=== PATIENT | female | born 1960 | race Caucasian/White ===

== ENCOUNTER 2022-10-22 09:22 | Outpatient (OUT) | payer MEDICAID, SELFPAY ==
--- NOTE | 2022-10-22 09:32 | US_ITS ---
The [address] [address] Patient Name: ECTOR HUTCHISON MRN: [id number] date: 1960 Sex: F Assigned Patient Location: US Current Patient Location: US Accession/Order Number: [id number] Exam Date: 10/22/2022 09:35 Report Date: 10/22/2022 11:42 At the request of: ELISABETH MCDONALD Procedure: US thyroid EXAMINATION: US thyroid HISTORY: Thyroid Nodule E04.1 COMPARISON: No relevant comparison available. FINDINGS: RIGHT LOBE: Prior right lobectomy. No suspicious findings within the thyroid bed. LEFT LOBE: Homogeneous echotexture and contains a 3 mm TR 4 nodule in a 1 mm TR 4 nodule within the superior pole. Lobe size: 3.2 x 1.1 x 1.4 cm ISTHMUS: Normal size and echotexture. Thickness: 1 mm US/US thyroid IMPRESSION: 1. Small, nonspecific TR 4 nodules within left lobe. Follow-up imaging in 2 years is recommended. 2. Prior right lobectomy. No suspicious findings within thyroid bed. TR4 (moderately suspicious): If > 1.0 cm Follow-up ultrasound in 1, 2, 3, and 5 years. If > 1.5 cm fine needle aspiration (FNA). Electronically authenticated by: JABARI BALL Date: 10/22/2022 11:42
== END 2022-10-22 09:23 | disposition home or self-care (01) ==
PROVIDERS: PCP Nurse Practitioner; Visit Provider Otolaryngology
DX: E03.9 Hypothyroidism, unspecified (principal); E78.5 Hyperlipidemia, unspecified; D64.9 Anemia, unspecified; E04.1 Nontoxic single thyroid nodule
CPT/HCPCS: 36415; 76536; 80053; 80061; 82728; 84439; 84443; 85025

== ENCOUNTER 2022-10-22 09:27 | Outpatient (OUT) | payer MEDICAID, SELFPAY ==
[2022-10-22 10:06] LABS: Basophils Absolute Auto 0.1 10^3/uL (0.0-0.1); Basophils Percent Auto 2.2 % (0.2-2.0); Eosinophils Absolute Auto 0.2 10^3/uL (0.0-0.7); Eosinophils Percent Auto 5.2 % (0.9-7.0); Hematocrit 35.2 % (36.0-48.0); Immature Granulocytes Abs Auto 0.02 10^3/uL (0.00-0.03); Immature Granulocytes Pct Auto 0.6 % (0.0-0.5); Lymphocytes Absolute Auto 0.9 10^3/uL (1.2-3.8); Lymphocytes Percent Auto 26.5 % (20.5-60.0); Mean Corpuscular HGB Conc 31.3 g/dL (29.9-35.2); Mean Corpuscular Hemoglobin 26.4 pg (26.7-34.0); Mean Corpuscular Volume 84.4 fL (81.0-99.0); Monocytes Absolute Auto 0.2 10^3/uL (0.3-0.8); Monocytes Percent Auto 7.4 % (1.7-12.0); Neutrophils Absolute Auto 1.9 10^3/uL (1.4-6.5); Neutrophils Percent Auto 58.1 % (43.0-75.0); Platelet Count 289 10^3/uL (150-450); Red Blood Count 4.17 10^6/uL (4.20-5.40); Red Cell Distribution Width 13.1 % (11.0-15.0); White Blood Count 3.3 10^3/uL (4.0-11.0)
[2022-10-22 12:01] LABS: Alanine Aminotransferase 28 U/L (14-59); Albumin Globulin Ratio 1.1; Albumin Level 3.9 g/dL (3.4-5.0); Alkaline Phosphatase 60 U/L (46-116); Anion Gap 10.3; Aspartate Amino Transferase 20 U/L (15-37); BUN Creatinine Ratio 24.1; Bilirubin Total 0.2 mg/dL (0.2-1.0); Calcium 8.9 mg/dL (8.5-10.1); Carbon Dioxide 32.2 mmol/L (21.0-32.0); Chloride 101 mmol/L (98-107); Chol HDL Ratio 2.3; Cholesterol 207 mg/dL (<=200); Estimated GFR (African America >60 (>=60); Estimated GFR (Non-African Ame >60 (>=60); Globulin 3.4 g/dL; Glucose 105 mg/dL (74-106); HDL Cholesterol 91 mg/dL (40-60); Potassium 4.5 mmol/L (3.5-5.1); Sodium 139 mmol/L (136-145); Thyroid Stimulating Hormone 3.672 uIU/mL (0.358-3.740); Total Protein 7.3 g/dL (6.4-8.2); Triglycerides 53 mg/dL (<=150); VLDL CHOLESTEROL 10.6 mg/dL
[2022-10-22 12:43] LABS: Free T4 0.69 ng/dL (0.76-1.46)
== END 2022-10-22 09:28 | disposition home or self-care (01) ==
PROVIDERS: PCP Nurse Practitioner; Visit Provider Nurse Practitioner
DX: E03.9 Hypothyroidism, unspecified (principal); E78.5 Hyperlipidemia, unspecified; D64.9 Anemia, unspecified
CPT/HCPCS: 36415; 80053; 80061; 82728; 84439; 84443; 85025

== ENCOUNTER 2022-12-10 13:01 | Outpatient (OUT) | payer MEDICAID, SELFPAY ==
[2022-12-10 13:24] LABS: Basophils Absolute Auto 0.1 10^3/uL (0.0-0.1); Basophils Percent Auto 1.6 % (0.2-2.0); Eosinophils Absolute Auto 0.1 10^3/uL (0.0-0.7); Eosinophils Percent Auto 3.6 % (0.9-7.0); Hematocrit 34.4 % (36.0-48.0); Hemoglobin 10.8 g/dL (12.0-16.0); Lymphocytes Absolute Auto 0.9 10^3/uL (1.2-3.8); Lymphocytes Percent Auto 28.5 % (20.5-60.0); Mean Corpuscular HGB Conc 31.4 g/dL (29.9-35.2); Mean Corpuscular Hemoglobin 27.3 pg (26.7-34.0); Mean Corpuscular Volume 87.1 fL (81.0-99.0); Mean Platelet Volume 8.9 fL (9.5-13.5); Monocytes Absolute Auto 0.3 10^3/uL (0.3-0.8); Monocytes Percent Auto 10.2 % (1.7-12.0); Neutrophils Absolute Auto 1.7 10^3/uL (1.4-6.5); Neutrophils Percent Auto 56.1 % (43.0-75.0); Platelet Count 280 10^3/uL (150-450); Red Blood Count 3.95 10^6/uL (4.20-5.40); Red Cell Distribution Width 15.2 % (11.0-15.0); White Blood Count 3.1 10^3/uL (4.0-11.0)
== END 2022-12-10 13:02 | disposition home or self-care (01) ==
LOC: LAB 13:04
PROVIDERS: PCP Nurse Practitioner; Visit Provider Nurse Practitioner
DX: B35.1 Tinea unguium (principal)
CPT/HCPCS: 36415; 85025

== ENCOUNTER 2023-04-01 21:43 | Outpatient (REF) | payer MEDICAID, SELFPAY ==
[2023-04-07 12:11] LABS: Age Gdln ACOG Testing Note (.); HPV Aptima Negative (Negative); IGP, Aptima HPV, rfx 16/18,45 Note (.)
== END 2023-04-01 21:44 | disposition home or self-care (01) ==
LOC: LAB 21:43
PROVIDERS: PCP Nurse Practitioner; Visit Provider Nurse Practitioner
DX: Z01.419 Encounter for gynecological examination (general) (routine) without abnormal findings (principal)
CPT/HCPCS: 87624; G0145

== ENCOUNTER 2023-04-15 10:06 | Outpatient (OUT) | payer OTHER, SELFPAY ==
--- OUTSIDE RECORDS SUMMARY | 2023-04-15 10:12 | XMS_ITS | CCD ---
Author Name Unknown Address [address] [place] [address] Organization [facility] Care Team Providers Care Organic Search Lead Name Role Phone [facility] Mary PEREZ Primary Care Provider Haylie Mueller Unavailable Adithya Boykin Unavailable Keara Silva Unavailable Mary Barr Unavailable AICHHOLZ, LANDING GEAR MECHANIC MARY Admitting Unavailable AICHHOLZ, LANDING GEAR MECHANIC MARY Attending Unavailable AICHHOLZ, LANDING GEAR MECHANIC MARY Consulting Unavailable AICHHOLZ, LANDING GEAR MECHANIC MARY Primary Care Unavailable AICHHOLZ, LANDING GEAR MECHANIC MARY Admitting Unavailable AICHHOLZ, LANDING GEAR MECHANIC MARY Primary Care Unavailable AICHHOLZ, LANDING GEAR MECHANIC MARY Attending Unavailable AICHHOLZ, LANDING GEAR MECHANIC MARY Consulting Unavailable DR ELISABETH MCDONALD Admitting Unavailable AICHHOLZ, LANDING GEAR MECHANIC MARY Primary Care Unavailable DR ELISABETH MCDONALD Attending Unavailable DR ELISABETH MCDONALD Consulting Unavailable DR ENDY PRADHAN Consulting Unavailable AICHHOLZ, LANDING GEAR MECHANIC MARY Primary Care Unavailable AICHHOLZ, LANDING GEAR MECHANIC MARY Admitting Unavailable AICHHOLZ, LANDING GEAR MECHANIC MARY Attending Unavailable AICHHOLZ, LANDING GEAR MECHANIC MARY Consulting Unavailable AICHHOLZ, LANDING GEAR MECHANIC MARY Admitting Unavailable AICHHOLZ, LANDING GEAR MECHANIC MARY Attending Unavailable AICHHOLZ, LANDING GEAR MECHANIC MARY Consulting Unavailable AICHHOLZ, LANDING GEAR MECHANIC MARY Primary Care Unavailable CROW HERNANDEZ Admitting Unavailable AICHHOLZ, LANDING GEAR MECHANIC MARY Primary Care Unavailable CROW HERNANDEZ Attending Unavailable CROW HERNANDEZ Consulting Unavailable CROW HERNANDEZ Admitting Unavailable CROW HERNANDEZ Attending Unavailable CROW HERNANDEZ Consulting Unavailable ANA CHUN MARY Primary Care Unavailable LAMONT FERRO Consulting Unavailable DR ENDY PRADHAN Consulting Unavailable HAYLIE MUELLER Admitting Unavailable HAYLIE MUELLER Attending Unavailable ANA CHUN Primary Care Unavailable HAYLIE MUELLER Consulting Unavailable Mary Chun CNP Primary Care Provider BRANDON ARSHAD Attending Unavailable MARY CHUN Referring Unavailable MARY CHUN Primary Care Unavailable MARY CHUN Attending Unavailable MARY CHUN Attending Unavailable Xu Gentile MD Primary Care Provider [phone] Allergies Allergy Classification Reported Allergen(s) Allergy Type Date of Onset Reaction(s) Facility (7 sources) atorvastatin Drug Allergy 07-25-19 15 Rash [facility] (3 sources) Bee Sting Drug allergy Unknown [facility] Other (1 source) bee venom Drug allergy (disorder) 02-03-20 16 [facility] (1 source) Dextroamphetamine Drug Allergy 07-25-19 15 [facility] (1 source) atorvastatin Drug Allergy 11-14-19 23 Unknown [facility] (1 source) Honey bee venom Allergy to substance 11-14-19 23 Unknown [facility] (1 source) terbinafine Drug Allergy 11-14-19 23 Rash [facility] (1 source) Tolnaftate Drug Allergy 11-14-19 23 Rash [facility] Medications Current Medications Medication Drug Class(es) Dates Sig (Normalized) Sig (Original) [id number] 200 actuat albuterol 0.09 mg/actuat metered dose inhaler (2 sources) beta2-Adrenergic Agonist Start: 06-01-2022 take 2 puff(s) by inhalation four times daily as needed Albuterol Sulfate HFA 108 (90 Base) MCG/ACT 2 puffs Inhalation 4 times a day prn May, Active alendronic acid 70 mg oral tablet (7 sources) Bisphosphonate alendronate (Fosamax) 70 MG tablet Take 70 mg by mouth every 7 (seven) days. 0 Active take 1 tablet by jie th every week in the morning alendronate (FOSAMAX) 70 mg tablet Take 70 mg by mouth one time a week. In AM with cup of water on empty stomach. Nothing else by mouth and stay upright for 30 min. 0 Active Fosamax 70 MG 1 tablet 30 minutes before the first food, beverage or medicine of the day with plain water Orally once a week Active Comment on above: Take 70 mg by mouth one time a week. In AM with cup of water on empty stomach. Nothing else by mouth and stay upright for 30 min. aspirin 81 mg delayed release oral tablet (9 sources) Platelet Aggregation Inhibitor, Nonsteroidal Anti-inflammatory Drug take 1 tablet by mouth once daily aspirin 81 MG EC tablet Take 81 mg by mouth 1 (one) time each day at the same time. 0 Active Aspir-Low 81 MG Oral for 30 Active Comment on above: Take 81 mg by mouth once daily. Calcium Carbonate (1 source) take 1 tablet by mouth in the morning Calcium Carbonate (CALCIUM 500 PO) Take 1 tablet by mouth in the morning. 0 Active cetirizine hydrochloride 10 mg oral tablet (1 source) Histamine-1 Receptor Antagonist Start: 023 take 1 tablet by mouth every twenty-four hours Cetirizine HCl 10 MG 1 tablet Orally Once a day for 14 days Jun, Active cycloSPORINE 0.5 mg/ml ophthalmic suspension (3 sources) Calcineurin Inhibitor Immunosuppressant take 1 drop(s) into the eye(s) every twelve hours cycloSPORINE (Restasis) 0.05 % ophthalmic emulsion Administer 1 drop into both eyes every 12 (twelve) hours. 0 Active take 1 drop(s) into the eye(s) twice daily cycloSPORINE (RESTASIS) 0.05 % ophthalmi c emulsion 1 Drop twice daily. 0 Active Comment on above: 1 Drop twice daily. 0.3 ml EPINEPHrine 1 mg/ml prefilled syringe (4 sources) alpha-Adrenergic Agonist, beta-Adrenergic Agonist, Catecholamine Start: 024 inject 0.3 mg by subcutaneous injection once EPINEPHrine (Symjepi) 0.3 MG/0.3ML injection Indications: Anaphylactic reaction to bee sting, accidental or unintentional, sequela Inject 0.3 mg under the skin 1 (one) time dose, may repeat again in 5-15 minutes if needed 0.3 mL 1 03/05/2023 Active EPINEPHrine Base (SYMJEPI) 0.3 mg/0.3 mL syrg Inject intramuscularly. 0 Active Comment on above: Inject intramuscular ly. famotidine 20 mg oral tablet (4 sources) Histamine-2 Receptor Antagonist Start: take 1 tablet by mouth in the morning famotidine (Pepcid) 20 MG tablet Indications: Gastroesophageal reflux disease, unspecified whether esophagitis present Take 1 tablet (20 mg) by mouth in the morning. 30 tablet 5 03/07/2023 Active take 1 tablet by mouth twice william ly famotidine (PEPCID) 20 mg tablet Take 20 mg by mouth twice daily. 0 Active Comment on above: Take 20 mg by mouth twice daily. fluticasone propionate 0.05 mg/actuat metered dose nasal spray (4 sources) Corticosteroid take 1 spray(s) nasal route in the morning fluticasone (Flonase) 50 MCG/ACT nasal spray Administer 1 spray into each nostril in the morning. 0 Active fluticasone prop ionate (FLONASE NASAL) Use in the nose. 0 Active Comment on above: Use in the nose. gabapentin 100 mg oral capsule (5 sources) Anti-epileptic Agent Start: 03-07-2023 take 2 capsules by mouth at bedtime gabapentin (Neurontin) 100 MG capsule Indications: Chronic pain in right foot Take 2 capsules (200 mg) by mouth at bedtime 60 capsule 5 03/07/2023 Active take 1 capsule by mouth at bedti me gabapentin (Neurontin) 300 MG capsule Take 300 mg by mouth at bedtime. 0 Active take 1 capsule by [facility] three times daily gabapentin (NEURONTIN) 100 mg capsule Ta ke 100 mg by mouth three times daily. 0 Active Comment on above: Take 100 mg by mouth three times daily. ibuprofen 200 mg oral tablet (1 source) Nonsteroidal Anti-inflammatory Drug take 1 tablet by mouth every six hours ibuprofen 200 MG tablet Take 200 mg by mouth every 6 (six) hours. 0 Active itraconazole 100 mg oral capsule (1 source) Azole Antifungal Start: 03-05-19 24 itraconazole (Sporanox) 100 MG capsule Indications: Onychomycosis 200mg twice daily for 7 days, then stop for 21 days, and then resume 200mg twice daily for 7 days then stop 56 capsule 0 03/05/2023 Active levothyroxine sodium 0.05 mg oral tablet (8 sources) l-Thyroxine Start: 04-10-19 24 End: 07-09-19 24 take 1 tablet by mouth before mealtime levothyroxine (Synthroid, Levoxyl) 50 MCG tablet Indications: Postoperative hypothyroidism (CMS/HCC) Take 1 tablet (50 mcg) by mouth in the morning. Take before meals. 30 tablet 1 04/10/2023 07/09/2023 Active take 2 tablets by mouth before m ealtime levothyroxine (Synthroid, Levoxyl) 25 MCG tablet Take 50 mcg by mouth in the morning. Take before meals. 0 Active take 1 tablet by jie th once daily in the morning Levothyroxine Sodium 25 MCG 1 tablet in the morning on an empty stomach Orally Once a day Active levothyroxine so dium (LEVOTHYROXINE ORAL) Take by mouth. 0 Active Comment on above: Take by mouth. lisinopril 10 mg oral tablet (9 sources) Angiotensin Converting Enzyme Inhibitor Start: take 1 tablet by mouth in the morning lisinopril 10 MG tablet Indications: Primary hypertension (CMS/HCC) Take 1 tablet (10 mg) by mouth in the morning. 30 tablet 5 03/07/2023 Active take 1 tablet by mouth once balbina y lisinopril (ZESTRIL, PRINIVIL) 10 mg tablet Take 10 mg by mouth once daily. 0 Active Comment on above: Take 10 mg by mouth once daily. 12 hr loratadine 5 mg / pseudoephedrine sulfate 120 mg extended release oral tablet (1 source) alpha-Adrenergic Agonist take 1 tablet by mouth once in the morning, then take 1 tablet by mouth every twelve hours at bedtime loratadine-pseudoephed rine ER (Claritin-D 12-hour) 5-120 MG 12 hr tablet Take 1 tablet by mouth in the morning and 1 tablet before bedtime. 0 Active lovastatin 20 mg oral tablet (9 sources) HMG-CoA Reductase Inhibitor Start: 03-07-19 24 take 1 tablet by mouth at bedtime lovastatin (Mevacor) 20 MG tablet Indications: Hyperlipidemia, unspecified hyperlipidemia type (CMS/HCC) Take 1 tablet (20 mg) by mouth at bedtime 30 tablet 5 03/07/2023 Active take 1 tablet by jie th once daily at bedtime lovastatin (MEVACOR) 20 mg tablet Take 2 0 mg by mouth daily at bedtime. 0 Active Comment on above: Take 20 mg by mouth daily at bedtime. montelukast 10 mg oral tablet (1 source) Leukotriene Receptor Antagonist Start: 04-10-19 End: 07-09-19 take 1 tablet by mouth at bedtime montelukast (Singulair) 10 MG tablet Indications: Seasonal allergies Take 1 tablet (10 mg) by mouth at bedtime 30 tablet 1 04/10/2023 07/09/2023 Active MULTIPLE VITAMIN PO (1 source) take 1 tablet by mouth in the morning MULTIPLE VITAMIN PO Take 1 tablet by mouth in the morning. 0 Active omeprazole 40 mg delayed release oral capsule (9 sources) Proton Pump Inhibitor Start: 03-07-19 take 1 tablet by mouth once daily omeprazole (PriLOSEC) [address] capsule Indications: Gastroesophageal reflux disease, unspecified whether esophagitis present TAKE ONE TABLET BY MOUTH DAILY 30 capsule 5 03/07/2023 Active take 1 capsule by mouth once william ly omeprazole (PRILOSEC) 40 mg capsule Take 40 mg by mouth once daily. 0 Active take 1 capsule by mouth once william ly Omeprazole 10 MG 1 capsule 30 minutes before morning meal Orally Once a day Active Comment on above: Take 40 mg by mouth once daily. predniSONE 20 mg oral tablet (3 sources) Start: 06-23-2022 take 1 tablet by mouth every twelve hours prednisone 20 MG 1 tablet Orally BID for 5 days Jun, Active Start: 06-01-2022 take 1 tablet by jie th every twelve hours predniSONE 20 MG 1 tablet Orally 2 times a day for 5 day(s) May, Active sertraline 100 mg oral tablet (7 sources) Serotonin Reuptake Inhibitor take 1 tablet by mouth once daily sertraline (Zoloft) 100 MG tablet Take 100 mg by mouth 1 (one) time each day at the same time. 0 Active Comment on above: Take 100 mg by mouth once daily. traZODone hydrochloride 50 mg oral tablet (9 sources) Serotonin Reuptake Inhibitor traZODone (Desyrel) 50 MG tablet Take 50 mg by mouth as needed at bedtime. 0 Active take 2 tablets by mo uth once daily at bedtime as needed traZODone HCl 50 MG 2 tablet at bedtime Orally Once a day prn Active traZODone HCl Ac tive Comment on above: Take 50 mg by mouth daily at bedtime. Vitamin C 1000 MG (3 sources) take 1 tablet by mouth once daily Vitamin C 1000 MG 1 tablet Orally Once a day Active Vitamin D 50 MCG (1999) (3 sources) take 1 capsule by mouth once daily Vitamin D 50 MCG (1999) 1 capsule Orally Once a day Active Completed/Discontinued Medications Medication Drug Class(es) Dates Sig (Normalized) Sig (Original) ALPRAZolam 0.5 mg oral tablet (5 sources) Benzodiazepine Start: 05-10-2022 Xanax 0.5 MG take 1 tablet 1/2 hour prior to MRI. May repeat if needed Orally for 1 days May, Not-Taking ASCORBATE CALCIUM ORAL (3 sources) ASCORBATE CALCIU M ORAL Take by mouth. 0 Active Comment on above: Take by mouth. cycloSPORINE (RESTASIS) 0.05 % ophthalmic emulsion (1 source) take 1 drop(s) into the eye(s) twice daily cycloSPORINE (RESTASIS) 0.05 % ophthalmic emulsion 1 Drop twice daily. 0 Active Comment on above: 1 Drop twice daily. mv-min/iron/folic/ calcium/vitK (WOMEN'S MULTIVITAMIN ORAL) (3 sources) mv-min/iron/foli c/ calcium/vitK (WOMEN'S MULTIVITAMIN ORAL) Take by mouth. 0 Active Comment on above: Take by mouth. penicillin v potassium 500 mg oral tablet (2 sources) Penicillin V Potassium 500 MG Oral for 10 Not-Taking Problems Active Problems Problem Classification Problem Date Documented Date Episodic/Chronic Anxiety disorders (1 source) Anxiety; Translations: [Anxiety disorder, unspecified] Onset: 03-05-2023 03-05-2023 Chronic Chronic obstructive pulmonary disease and bronchiectasis (1 source) Bronchitis, not specified as acute or chronic Episodic Complications of surgical procedures or medical care (2 sources) Postoperative hypothyroidism; Translations: [Postprocedural hypothyroidism] Onset: 11-13-2022 04-10-2023 Chronic Disorders of lipid metabolism (3 sources) Pure hypercholesterolemia, unspecified; Translations: [Hyperlipidemia, unspecified] Onset: 09-11-2021 11-13-2022 Chronic Esophageal disorders (1 source) Gastroesophageal reflux disease; Translations: [Gastro-esophageal reflux disease without esophagitis] Onset: 03-07-2023 03-07-2023 Chronic Essential hypertension (3 sources) Essential (primary) hypertension; Translations: [Hypertensive disorder] Onset: 04-30-2022 11-13-2022 Chronic Mood disorders (1 source) Depressive disorder; Translations: [Depression] Onset: 11-13-2022 11-13-2022 Chronic Mood disorders (1 source) Mood disorders; Translations: [DEPRESSION UNSPECIFIED] Onset: 04-30-2022 Mycoses (6 sources) Tinea unguium; Translations: [Onychomycosis] Onset: 09-09-2021 Episodic Osteoarthritis (3 sources) Osteoarthritis of joint of right shoulder region; Translations: [Primary osteoarthritis, right shoulder] Chronic Osteoporosis (2 sources) Age-related osteoporosis without current pathological fracture; Translations: [Osteoporosis] Onset: 09-11-2021 11-13-2022 Chronic Other connective tissue disease (1 source) Chronic pain of right foot; Translations: [Pain in right foot] Onset: 03-07-2023 03-07-2023 Episodic Other non-traumatic joint disorders (5 sources) Derangement of right shoulder joint; Translations: [Other specific joint derangements of right shoulder, not elsewhere classified] Chronic Other non-traumatic joint disorders (5 sources) Other specific joint derangements of right shoulder, not elsewhere classified; Translations: [OTH SPEC JOINT DERANG RT SHLDR NEC] Onset: 06-04-2022 Chronic Other upper respiratory disease (2 sources) Seasonal allergy; Translations: [Other seasonal allergic rhinitis] Onset: 04-10-2023 04-10-2023 Chronic Other upper respiratory infections (1 source) Acute laryngitis Episodic Poisoning by nonmedicinal substances (1 source) Bee sting-induced anaphylaxis; Translations: [Toxic effect of venom of bees, accidental (unintentional), initial encounter] Onset: 03-05-2023 03-05-2023 Episodic Screening and history of mental health and substance abuse codes (2 sources) Personal history of nicotine dependence; Translations: [Ex-tobacco user] Onset: 04-30-2022 04-01-2023 Episodic Sprains and strains (1 source) Strain of unspecified muscle, fascia and tendon at shoulder and upper arm level, right arm, initial encounter Episodic Superficial injury; contusion (1 source) Contusion of right shoulder, initial encounter Episodic Thyroid disorders (5 sources) Nontoxic single thyroid nodule; Translations: [Thyroid nodule] Onset: 10-20-2021 Chronic Past or Other Problems Problem Classification Problem Date Documented Date Episodic/Chronic Allergic reactions (1 source) Localized skin eruption due to drugs and medicaments taken internally; Translations: [LOC SKN ERUPT D/T RX TAKE INTERNALY] Onset: 09-11-2021 Episodic Deficiency and other anemia (4 sources) Anemia, unspecified; Translations: [ANEMIA UNSPECIFIED] Onset: 11-09-2021 Episodic E Codes: Adverse effects of medical drugs (1 source) Adverse effect of local antifungal, anti-infective and anti-inflammatory drugs, initial encounter; Translations: [ADVRS EFF LOC ANTIF/INF/INFL RX INT] Onset: 09-11-2021 Episodic E Codes: Fall (1 source) Fall on same level from slipping, tripping and stumbling with subsequent striking against unspecified object, initial encounter; Translations: [FALL SAME LVL SLIP STRK UNS OBJ INT] Onset: 04-30-2022 Episodic Joint disorders and dislocations; trauma-related (1 source) Closed traumatic dislocation of tarsometatarsal joint; Translations: [Dislocation of tarsometatarsal joint of unspecified foot, initial encounter] Onset: 11-13-2022 11-13-2022 Episodic Other aftercare (1 source) snf (current) use of aspirin; Translations: [JAIL CURRENT USE OF ASPIRIN] Onset: 04-30-2022 Episodic Other aftercare (1 source) Other long-term (current) drug therapy; Translations: [OTH [employer] IN[employer]CTOR CURRENT DRUG THERAPY] Onset: 04-30-2022 Episodic Other injuries and conditions due to external causes (1 source) Unspecified injury of muscle(s) and tendon(s) of the rotator cuff of right shoulder, initial encounter; Translations: [UNS INJ MSC TEND RC RT SHLDR INIT] Onset: 04-30-2022 Episodic Other nervous system disorders (1 source) Paresthesia of skin; Translations: [Disturbance of skin sensation] Onset: 11-13-2022 11-13-2022 Episodic Other non-traumatic joint disorders (3 sources) Pain in right shoulder; Translations: [PAIN IN RIGHT SHOULDER] Onset: 04-28-2022 Episodic Other screening for suspected conditions (not mental disorders or infectious disease) (5 sources) Full blood count abnormal; Translations: [Other specified abnormal findings of blood chemistry] Onset: 10-09-2021 Episodic Other skin disorders (3 sources) Rash and other nonspecific skin eruption; Translations: [RASH OTH NONSPECIFIC SKIN ERUPTION] Onset: 09-09-2021 Episodic Results Test Name Value Interpretation Reference Range Facility MG MAMM SCREEN 3D JENNIFER CADon 08-01-2022 MG MAMM SCREEN 3D JENNIFER CAD Patient: ECTOR HUTCHISON Exam Date: 08/01/2022 : 1960 Gender:F Ordering : ANA MARY CHUN [facility] Admission #: [id number] Family : Order #: [id number] CLICK HERE TO VIEW EXAM RADIOLOGY REPORT PROCEDURE: MAMMOGRAM SCREENING 3D BILATERAL CAD COMPARISON: MG MAMM SCREEN 3D JENNIFER CAD, 05/23/2021. MG MAMM SCREEN JENNIFER W CAD, 03/08/2020. MG MAMM LT DIAG W CAD, 09/18/2019. DIGITIZED_MAMMO, 08/31/1999. INDICATIONS: Screening mammography Calculator Name NCI Breast Cancer Risk Assessment Tool 5 Year Breast Cancer Risk 1.60% Lifetime Breast Cancer Risk 6.80% Personal Breast Cancer No Personal Ovarian Cancer No Treatments None Family Cancers Grandmother-maternal with breast cancer at age 80; Mother with lung cancer at age 72; Father with prostate cancer at age 55. LOCATION: [facility] BREAST COMPOSITION: Extremely dense, which lowers the sensitivity of mammography. FINDINGS: DIAGNOSTIC CATEGORY 1--NEGATIVE. RIGHT BREAST: No significant suspicious finding. No significant change has occurred. LEFT BREAST: No significant suspicious finding. No significant change has occurred. RECOMMENDATIONS: ROUTINE MAMMOGRAM AND CLINICAL EVALUATION IN 12 MONTHS. PLEASE NOTE: A NORMAL MAMMOGRAM DOES NOT EXCLUDE THE POSSIBILITY OF BREAST CANCER. A CLINICALLY SUSPICIOUS PALPABLE LUMP SHOULD BE BIOPSIED. Dictated by: Endy Pradhan M.D. on 08/01/2022 at 16:56 Approved by: Endy Pradhan M.D. on 08/01/2022 at 16:58 Normal [facility] MRI SHOULDER RT WO CONon MRI SHOULDER RT WO CON EXAMINATION: MRI SHOULDER RT WO CON HISTORY: Derangement of right shoulder joint ; acute right shoulder pain COMPARISON: No relevant comparison available. TECHNIQUE: A variety of imaging planes and parameters were utilized for visualization of suspected pathology. Imaging was performed without contrast. FINDINGS: ROTATOR CUFF REGION CUFF TENDONS: Moderate increased signal intensity in the supraspinatus tendon indicates tendon degeneration and/or tendinitis. No dinesh tear is seen. CUFF MUSCLES: Normal appearing muscles. DELTOID: Normal. No significant atrophy or tear. LONG BICEPS TENDON: Normal. No abnormal signal, attrition, or tear. LABRUM/BICEPS ANCHOR SUPERIOR: Normal. No visible labral tear or biceps anchor pathology. ANTERIOR/INFERIOR: Normal. No visible tear or attrition. POSTERIOR: Normal. No posterior labrum abnormality. CAPSULE Normal. No visible capsular laxity or thickening. AC JOINT REGION AC JOINT: Mild-moderate degenerative changes with small undersurface osteophyte. AC LIGAMENTS: Normal acromioclavicular ligament. CC LIGAMENTS: Normal coracoclavicular ligaments. ACROMION: Mild lateral downsloping. SUBACROMIAL BURSA: Trace amount of fluid within the subacromial bursa. HYALINE CARTILAGE: Normal. No visible cartilage narrowing or focal defect. OTHER BONES: Normal proximal humerus, glenoid, and coracoid. OTHER OBSERVATIONS: Negative. No other significant findings or glenohumeral effusion. IMPRESSION: 1. Examination is limited by significant patient motion artifact. 2. Suspect moderate strain of the supraspinatus tendon. 3. Mild to moderate degenerative changes of the acromioclavicular joint and slight lateral downsloping of the acromion process likely contributing to patient's supraspinatus tendinopathy. Electronically authenticated by: ENDY PRADHAN Date: 2022-06-04 16:21 Normal [facility] XR SHOULDER RT 2V or >on XR SHOULDER RT 2V or > PLAIN FILM SHOULDER RIGHT HISTORY: Shoulder pain. 62-year-old female TECHNIQUE: 3 views of the shoulder submitted for review. COMPARISON: None available. FINDINGS: Bone mineralization: Decreased. Osseous fracture: No displaced fracture. Joint spaces: Mild degenerative change. No dislocation. Soft tissues: Mildly edematous. Lung apex in the FOV: The lung apices included in the [id number] are within normal limits. IMPRESSION: Mild degenerative change. Electronically authenticated by: LAMONT FERRO Date: 2022-04-28 18:53 Normal [facility] CNOVSPon 01-01-2022 CNOVSP Visit (SP) Office ([facility]) SILVIO HUTCHISONNDY ([id number]) 1960 F Date Time Provider Department 01/01/22 11:15 AM BRANDON ARSHAD During your visit today, we recorded the following information about you: Temperature Pulse Respiration Blood pressure 97.5 degrees 88/minute 18/minute 162/80 Weight Height 43 kg 1.626 m Brandon Arshad MD 01/02/2022 5:53 PM Signed Patient left office prior to eval. Referring Provider: MARY CHUN [[id number]] Allergies As of Date: 01/01/2022 Noted Allergy Reaction ATORVASTATIN 07/24/2014 2 - Rash Date Reviewed: 01/01/2022 Reviewed by: Pati Bates MA - Fully Assessed Reason for Visit: Abnormal CBC [Other] Cmt: New patient consult Primary Visit Diagnosis:Abnormal CBC measurement [R79.89] Prescriptions as of 01/02/2022 - levothyroxine sodium (LEVOTHYROXINE ORAL) Take by mouth. - famotidine (PEPCID) 20 mg tablet Take 20 mg by mouth twice daily. - omeprazole (PRILOSEC) 40 mg capsule Take 40 mg by mouth once daily. - mv-min/iron/folic/calci um/vitK (WOMEN'S MULTIVITAMIN ORAL) Take by mouth. - ASCORBATE CALCIUM ORAL Take by mouth. - cycloSPORINE (RESTASIS) 0.05 % ophthalmic emulsion 1 Drop twice daily. - fluticasone propionate (FLONASE NASAL) Use in the nose. - aspirin, enteric coated (ASPIRIN, ENTERIC COATED) 81 mg EC tablet Take 81 mg by mouth once daily. - alendronate (FOSAMAX) 70 mg tablet Take 70 mg by mouth one time a week. In AM with cup of water on empty stomach. Nothing else by mouth and stay upright for 30 min. - traZODone (DESYREL) 50 mg tablet Take 50 mg by mouth daily at bedtime. - gabapentin (NEURONTIN) 100 mg capsule Take 100 mg by mouth three times daily. - lovastatin (MEVACOR) 20 mg tablet Take 20 mg by mouth daily at bedtime. - lisinopril (ZESTRIL, PRINIVIL) 10 mg tablet Take 10 mg by mouth once daily. - sertraline (ZOLOFT) 100 mg tablet Take 100 mg by mouth once daily. - EPINEPHrine Base (SYMJEPI) 0.3 mg/0.3 mL syrg Inject intramuscularly. Problem List As Of Date: 01/01/2022 (None) Encounter Status:Closed by BRANDON ARSHAD on 01/02/22 [facility] 01-01-2022 [facility] Telephone (NCCAP) ECTOR HUTCHISON ([id number]) 1960 F Date Time Provider Department 01/01/22 BRANDON ARSHAD NCCAP During your visit today, we recorded the following information about you: Sobeida Franco 01/01/2022 12:50 PM Signed Patient did not want to wait to be seen by Dr. Lehman. Patient stated she had a lot going on right now and her father recently . And she wasn't going to wait any longer. Allergies As of Date: 01/01/2022 Noted Allergy Reaction ATORVASTATIN 07/24/2014 2 - Rash Date Reviewed: 01/01/2022 Reviewed by: Pati Bates MA - Fully Assessed Reason for Visit: Appointment [[id number]] Prescriptions as of 10/12/2022 - levothyroxine sodium (LEVOTHYROXINE ORAL) Take by mouth. - famotidine (PEPCID) 20 mg tablet Take 20 mg by mouth twice daily. - omeprazole (PRILOSEC) 40 mg capsule Take 40 mg by mouth once daily. - mv-min/iron/folic/calci um/vitK (WOMEN'S MULTIVITAMIN ORAL) Take by mouth. - ASCORBATE CALCIUM ORAL Take by mouth. - cycloSPORINE (RESTASIS) 0.05 % ophthalmic emulsion 1 Drop twice daily. - fluticasone propionate (FLONASE NASAL) Use in the nose. - aspirin, enteric coated (ASPIRIN, ENTERIC COATED) 81 mg EC tablet Take 81 mg by mouth once daily. - alendronate (FOSAMAX) 70 mg tablet Take 70 mg by mouth one time a week. In AM with cup of water on empty stomach. Nothing else by mouth and stay upright for 30 min. - traZODone (DESYREL) 50 mg tablet Take 50 mg by mouth daily at bedtime. - gabapentin (NEURONTIN) 100 mg capsule Take 100 mg by mouth three times daily. - lovastatin (MEVACOR) 20 mg tablet Take 20 mg by mouth daily at bedtime. - lisinopril (ZESTRIL, PRINIVIL) 10 mg tablet Take 10 mg by mouth once daily. - sertraline (ZOLOFT) 100 mg tablet Take 100 mg by mouth once daily. - EPINEPHrine Base (SYMJEPI) 0.3 mg/0.3 mL syrg Inject intramuscularly. Problem List As Of Date: 01/01/2022 (None) Encounter Status:Closed by RADHA DAVIS on 10/12/22 Normal [facility] CBC AUTO DIFFon 11-09-2021 BASO # 0.1 103/ul Normal 0.0-0.1 [facility] Comment on above: Performed By: #### C BC #### [facility] [address] [address] [address] Laura Genao Basophils/100 WBC (Bld) 1.1 % Normal 0.2-2.0 [facility] Comment on above: Performed By: #### C BC #### [facility] [address] [address] [address] Laura Genao EO # 0.1 103/ul Normal 0.0-0.7 [facility] Comment on above: Performed By: #### C BC #### [facility] [address] [address] [address] Laura Genao Eosinophils/100 WBC (Bld) 2.5 % Normal 0.9-7.0 [facility] Comment on above: Performed By: #### C BC #### [facility] [address] [place] [address] Dr. Laura Genao Erythrocyte distribution width (RBC) [Ratio] 11.9 % Normal 11.0-15.0 [facility] Comment on above: Performed By: #### C BC #### [facility] [address] [place] [address] Dr. Laura Genao Hematocrit (Bld) [Volume fraction] 38.3 % Normal 36.0-48.0 [facility] Comment on above: Performed By: #### C BC #### [facility] [address] [place] [address] Dr. Laura Genao Hemoglobin (Bld) [Mass/Vol] 12.7 g/dL Normal 12.0-16.0 [facility] Comment on above: Performed By: #### C BC #### [facility] [address] [place] [address] Dr. Laura Genao IG # 0.02 10e3/ul Normal 0.00-0.03 [facility] Comment on above: Performed By: #### C BC #### [facility] [address] [place] [address] Dr. Laura Genao IG % 0.4 % Normal 0.0-0.5 [facility] Comment on above: Performed By: #### C BC #### [facility] [address] [place] [address] Dr. Laura Genao LYMPH # 0.9 103/ul Critically low 1.2-3.8 [facility] Comment on above: Performed By: #### C BC #### [facility] [address] [place] [address] Dr. Laura Genao Lymphocytes/100 WBC (Bld) 15.1 % Critically low 20.5-60.0 [facility] Comment on above: Performed By: #### C BC #### [facility] [address] [place] [address] Dr. Laura Genao MANUAL DIFF REQ NO Normal [facility] Comment on above: Performed By: #### C BC #### [facility] [address] [place] [address] Dr. Laura Genao MCH (RBC) [Entitic mass] 29.7 pg Normal 26.7-34.0 [facility] Comment on above: Performed By: #### C BC #### [facility] [address] [place] [address] Dr. Laura Genao MCHC (RBC) [Mass/Vol] 33.2 g/dL Normal 29.9-35.2 [facility] Comment on above: Performed By: #### C BC #### [facility] [address] [place] [address] Dr. Laura Genao MCV (RBC) [Entitic vol] 89.7 fL Normal 81.0-99.0 [facility] Comment on above: Performed By: #### C BC #### [facility] [address] [place] [address] Dr. Laura Genao MONO # 0.4 103/ul Normal 0.3-0.8 [facility] Comment on above: Performed By: #### C BC #### [facility] [address] [place] [address] Dr. Laura Genao Monocytes/100 WBC (Bld) 7.0 % Normal 1.7-12.0 [facility] Comment on above: Performed By: #### C BC #### [facility] [address] [place] [address] Dr. Laura Genao NEUT # 4.2 103/ul Normal 1.4-6.5 [facility] Comment on above: Performed By: #### C BC #### [facility] [address] [place] [address] Dr. Laura Genao Neutrophils/100 WBC (Bld) 73.9 % Normal 43.0-75.0 [facility] Comment on above: Performed By: #### C BC #### [facility] [address] [place] [address] Dr. Laura Genao Platelet mean volume (Bld) [Entitic vol] 8.8 fL Critically low 9.5-13.5 [facility] Comment on above: Performed By: #### C BC #### [facility] [address] [place] [address] Dr. Laura Genao PLT 349 103/ul Normal 150-450 [facility] Comment on above: Performed By: #### C BC #### [facility] [address] [place] [address] Dr. Laura Genao RBC 4.27 106/ul Normal 4.20-5.40 [facility] Comment on above: Performed By: #### C BC #### [facility] [address] [address] [address] Laura Genao WBC 5.7 103/ul Normal 4.0-11.0 [facility] Comment on above: Performed By: #### C BC #### [facility] [address] [place] [address] Dr. Laura Genao FERRITINon 11-09-2021 Ferritin [Mass/Vol] 61.0 ng/mL Normal 8.0-252.0 [facility] Comment on above: Performed By: #### L IPID, CMP #### [facility] [address] [place] [address] Dr. Laura Genao IRONon 11-09-2021 Iron [Mass/Vol] 81.0 ug/dL Normal 50.0-170.0 [facility] Comment on above: Performed By: #### L IPID, CMP #### [facility] [address] [place] [address] Dr. Laura Genao VITAMIN B12on 11-09-2021 Cobalamin (Vitamin B12) [Mass/Vol] 336.0 pg/mL Normal 193.0-986.0 [facility] Comment on above: Performed By: #### L IPID, CMP #### [facility] [address] [place] [address] Dr. Lauar Genao US THYROIDon 10-20-2021 US THYROID EXAMINATION: US THYR OID HISTORY: Non-toxic uninodular goiter COMPARISON: Ultrasound thyroid 10/17/2020 FINDINGS: RIGHT LOBE: Right lobectomy. No suspicious findings within thyroid fossa. LEFT LOBE: Contains 2 tiny TR 4 nodules within the superior pole, largest is 3 mm. Lobe size: 3.3 x 0.9 x 1.1 cm ISTHMUS: Normal size and echotexture. Thickness: 1 mm IMPRESSION: 1. Prior right thyroid lobe resection; no suspicious findings. 2. Tiny nodules within left lobe; follow-up recommended. TR4 (moderately suspicious): If > 1.0 cm Follow-up ultrasound in 1, 2, 3, and 5 years. If > 1.5 cm fine needle aspiration (FNA). Electronically authenticated by: ENDY PRADHAN Date: 2021-10-20 17:06 Normal [facility] CBC AUTO DIFFon 10-09-2021 BASO # 0.1 103/ul Normal 0.0-0.1 [facility] Comment on above: Performed By: #### C BC #### [facility] [address] [place] [address] Dr. Laura Genao Basophils/100 WBC (Bld) 1.1 % Normal 0.2-2.0 [facility] Comment on above: Performed By: #### C BC #### [facility] [address] [place] [address] Dr. Laura Genao EO # 0.2 103/ul Normal 0.0-0.7 [facility] Comment on above: Performed By: #### C BC #### [facility] [address] [place] [address] Dr. Laura Genao Eosinophils/100 WBC (Bld) 3.3 % Normal 0.9-7.0 [facility] Comment on above: Performed By: #### C BC #### [facility] [address] [place] [address] Dr. Laura Genao Erythrocyte distribution width (RBC) [Ratio] 12.1 % Normal 11.0-15.0 [facility] Comment on above: Performed By: #### C BC #### [facility] [address] [place] [address] Dr. Laura Genao Hematocrit (Bld) [Volume fraction] 34.6 % Critically low 36.0-48.0 [facility] Comment on above: Performed By: #### C BC #### [facility] [address] [place] [address] Dr. Laura Genao Hemoglobin (Bld) [Mass/Vol] 11.5 g/dL Critically low 12.0-16.0 [facility] Comment on above: Performed By: #### C BC #### [facility] [address] [place] [address] Dr. Laura Genao IG # 0.01 10e3/ul Normal 0.00-0.03 [facility] Comment on above: Performed By: #### C BC #### [facility] [address] [place] [address] Dr. Laura Genao IG % 0.2 % Normal 0.0-0.5 [facility] Comment on above: Performed By: #### C BC #### [facility] [address] [place] [address] Dr. Laura Genao LYMPH # 1.1 103/ul Critically low 1.2-3.8 [facility] Comment on above: Performed By: #### C BC #### [facility] [address] [place] [address] Dr. Laura Genao Lymphocytes/100 WBC (Bld) 25.2 % Normal 20.5-60.0 [facility] Comment on above: Performed By: #### C BC #### [facility] [address] [place] [address] Dr. Laura Genao MANUAL DIFF REQ NO Normal [facility] Comment on above: Performed By: #### C BC #### [facility] [address] [place] [address] Dr. Laura Genao MCH (RBC) [Entitic mass] 29.6 pg Normal 26.7-34.0 [facility] Comment on above: Performed By: #### C BC #### [facility] [address] [place] [address] Dr. Laura Genao MCHC (RBC) [Mass/Vol] 33.2 g/dL Normal 29.9-35.2 [facility] Comment on above: Performed By: #### C BC #### [facility] [address] [place] [address] Dr. Laura Genao MCV (RBC) [Entitic vol] 89.2 fL Normal 81.0-99.0 [facility] Comment on above: Performed By: #### C BC #### [facility] [address] [address] [address] Laura Genao MONO # 0.4 103/ul Normal 0.3-0.8 [facility] Comment on above: Performed By: #### C BC #### [facility] [address] [address] [address] Laura Genao Monocytes/100 WBC (Bld) 8.8 % Normal 1.7-12.0 [facility] Comment on above: Performed By: #### C BC #### [facility] [address] [address] [address] Laura Genao NEUT # 2.8 103/ul Normal 1.4-6.5 [facility] Comment on above: Performed By: #### C BC #### [facility] [address] [place] [address] Dr. Laura Genao Neutrophils/100 WBC (Bld) 61.4 % Normal 43.0-75.0 [facility] Comment on above: Performed By: #### C BC #### [facility] [address] [address] [address] Laura Genao Platelet mean volume (Bld) [Entitic vol] 8.7 fL Critically low 9.5-13.5 [facility] Comment on above: Performed By: #### C BC #### [facility] [address] [place] [address] Dr. Laura Genao PLT 301 103/ul Normal 150-450 [facility] Comment on above: Performed By: #### C BC #### [facility] [address] [address] [address] Laura Genao RBC 3.88 106/ul Critically low 4.20-5.40 [facility] Comment on above: Performed By: #### C BC #### [facility] [address] [address] [address] Laura Genao WBC 4.5 103/ul Normal 4.0-11.0 [facility] Comment on above: Performed By: #### C BC #### [facility] [address] [place] [address] Dr. Laura Genao CBC AUTO DIFFon 09-09-2021 BASO # 0.1 103/ul Normal 0.0-0.1 [facility] Comment on above: Performed By: #### C BC #### [facility] [address] [place] [address] Dr. Laura Genao Basophils/100 WBC (Bld) 1.4 % Normal 0.2-2.0 [facility] Comment on above: Performed By: #### C BC #### [facility] [address] [place] [address] Dr. Laura Genao EO # 0.3 103/ul Normal 0.0-0.7 [facility] Comment on above: Performed By: #### C BC #### [facility] [address] [place] [address] Dr. Laura Genao Eosinophils/100 WBC (Bld) 7.0 % Normal 0.9-7.0 [facility] Comment on above: Performed By: #### C BC #### [facility] [address] [place] [address] Dr. Laura Genao Erythrocyte distribution width (RBC) [Ratio] 11.6 % Normal 11.0-15.0 [facility] Comment on above: Performed By: #### C BC #### [facility] [address] [place] [address] Dr. Laura Genao Hematocrit (Bld) [Volume fraction] 38.6 % Normal 36.0-48.0 [facility] Comment on above: Performed By: #### C BC #### [facility] [address] [place] [address] Dr. Laura Genao Hemoglobin (Bld) [Mass/Vol] 13.0 g/dL Normal 12.0-16.0 [facility] Comment on above: Performed By: #### C BC #### [facility] [address] [place] [address] Dr. Laura Genao IG # 0.00 10e3/ul Normal 0.00-0.03 [facility] Comment on above: Performed By: #### C BC #### [facility] [address] [place] [address] Dr. Laura Genao IG % 0.0 % Normal 0.0-0.5 [facility] Comment on above: Performed By: #### C BC #### [facility] [address] [place] [address] Dr. Laura Genao LYMPH # 0.8 103/ul Critically low 1.2-3.8 [facility] Comment on above: Performed By: #### C BC #### [facility] [address] [place] [address] Dr. Laura Genao Lymphocytes/100 WBC (Bld) 22.8 % Normal 20.5-60.0 [facility] Comment on above: Performed By: #### C BC #### [facility] [address] [place] [address] Dr. Laura Genao MANUAL DIFF REQ NO Normal [facility] Comment on above: Performed By: #### C BC #### [facility] [address] [place] [address] Dr. Laura Genao MCH (RBC) [Entitic mass] 29.9 pg Normal 26.7-34.0 [facility] Comment on above: Performed By: #### C BC #### [facility] [address] [place] [address] Dr. Laura Genao MCHC (RBC) [Mass/Vol] 33.7 g/dL Normal 29.9-35.2 [facility] Comment on above: Performed By: #### C BC #### [facility] [address] [place] [address] Dr. Laura Genao MCV (RBC) [Entitic vol] 88.7 fL Normal 81.0-99.0 [facility] Comment on above: Performed By: #### C BC #### [facility] [address] [place] [address] Dr. Laura Genao MONO # 0.3 103/ul Normal 0.3-0.8 [facility] Comment on above: Performed By: #### C BC #### [facility] [address] [address] [address] Laura Genao Monocytes/100 WBC (Bld) 6.8 % Normal 1.7-12.0 [facility] Comment on above: Performed By: #### C BC #### [facility] [address] [address] [address] Luara Genao NEUT # 2.3 103/ul Normal 1.4-6.5 [facility] Comment on above: Performed By: #### C BC #### [facility] [address] [address] [address] Laura Genao Neutrophils/100 WBC (Bld) 62.0 % Normal 43.0-75.0 [facility] Comment on above: Performed By: #### C BC #### [facility] [address] [place] [address] Dr. Laura Genao Platelet mean volume (Bld) [Entitic vol] 9.0 fL Critically low 9.5-13.5 [facility] Comment on above: Performed By: #### C BC #### [facility] [address] [place] [address] Dr. Laura Genao PLT 249 103/ul Normal 150-450 [facility] Comment on above: Performed By: #### C BC #### [facility] [address] [place] [address] Dr. Laura Genao RBC 4.35 106/ul Normal 4.20-5.40 [facility] Comment on above: Performed By: #### C BC #### [facility] [address] [place] [address] Dr. Laura Genao WBC 3.7 103/ul Critically low 4.0-11.0 [facility] Comment on above: Performed By: #### C BC #### [facility] [address] [place] [address] Dr. Laura Genao LIPID PROFILEon 09-09-2021 CHOL-HDL RATIO NORM SEE BELOW Normal [facility] Comment on above: Result Comment: 3.3 - 4.4 LOW RISK 4.4 - 7.1 AVERAGE RISK 7.1 - 11.0 MODERATE RISK >11.0 HIGH RISK Performed By: #### L IPID, CMP #### [facility] [address] [address] [address] Laura Genao Cholesterol [Mass/Vol] 196 mg/dL Normal <=200 [facility] Comment on above: Performed By: #### L IPID, CMP #### [facility] [address] [address] [address] Laura Genao Cholesterol in HDL [Mass/Vol] 78 mg/dL Critically high 40-60 [facility] Comment on above: Performed By: #### L IPID, CMP #### [facility] [address] [address] [address] Laura Genao Cholesterol in LDL [Mass/Vol] 104.4 mg/dL Normal [facility] Comment on above: Performed By: #### L IPID, CMP #### [facility] [address] [address] [address] Laura Genao Cholesterol.total/ Cholesterol in HDL [Mass ratio] 2.5 {ratio} Normal [facility] Comment on above: Performed By: #### L IPID, CMP #### [facility] [address] [address] [address] Laura Genao HDL NORMAL > or = 60 mg/dl - LO W CARDIOVASCULAR RISK <40 mg/dl - HIGH CARDIOVASCULAR RISK Normal [facility] Comment on above: Performed By: #### L IPID, CMP #### [facility] [address] [address] [address] Laura Genao LDL CALC NORMAL SEE BELOW Normal [facility] Comment on above: Result Comment: <100 mg/dl OPTIMAL 100 - 129 mg/dl NEAR OR ABOVE OPTIMAL 130 - 159 mg/dl BORDERLINE HIGH 160 - 189 mg/dl HIGH >190 mg/dl VERY HIGH Performed By: #### L IPID, CMP #### [facility] [address] [address] [address] Laura Genao Triglyceride [Mass/Vol] 68 mg/dL Normal <=150 [facility] Comment on above: Performed By: #### L IPID, CMP #### [facility] [address] [place] [address] Dr. Laura Genao VLDL CALC 13.6 mg/dL Normal [facility] Comment on above: Performed By: #### L IPID, CMP #### [facility] [address] [place] [address] Dr. Laura Genao PROF 14(COMP METB)on 022 Albumin [Mass/Vol] 4.0 g/dL Normal 3.4-5.0 [facility] Comment on above: Performed By: #### L IPID, CMP #### [facility] [address] [place] [address] Dr. Laura Genao Albumin/Globulin [Mass ratio] 1.4 {ratio} Normal [facility] Comment on above: Performed By: #### L IPID, CMP #### [facility] [address] [place] [address] Dr. Laura Genao ALP [Catalytic activity/Vol] 55 U/L Normal 46-116 [facility] Comment on above: Performed By: #### L IPID, CMP #### [facility] [address] [place] [address] Dr. Laura Genao ALT [Catalytic activity/Vol] 22 U/L Normal 14-59 [facility] Comment on above: Performed By: #### L IPID, CMP #### [facility] [address] [place] [address] Dr. Laura Genao Anion gap [Moles/Vol] 8.9 mmol/L Normal [facility] Comment on above: Performed By: #### L IPID, CMP #### [facility] [address] [place] [address] Dr. Laura Genao AST [Catalytic activity/Vol] 16 U/L Normal 15-37 [facility] Comment on above: Performed By: #### L IPID, CMP #### [facility] [address] [place] [address] Dr. Laura Genao Bilirubin [Mass/Vol] 0.5 mg/dL Normal 0.2-1.0 [facility] Comment on above: Performed By: #### L IPID, CMP #### [facility] [address] [address] [address] Laura Genao Calcium [Mass/Vol] 8.9 mg/dL Normal 8.5-10.1 [facility] Comment on above: Performed By: #### L IPID, CMP #### [facility] [address] [address] [address] Laura Genao Chloride [Moles/Vol] 104 mmol/L Normal 98-107 [facility] Comment on above: Performed By: #### L IPID, CMP #### [facility] [address] [address] [address] Laura Genao CO2 [Moles/Vol] 30.7 mmol/L Normal 21.0-32.0 [facility] Comment on above: Performed By: #### L IPID, CMP #### [facility] [address] [address] [address] Laura Genao Creatinine [Mass/Vol] 0.81 mg/dL Normal 0.55-1.02 [facility] Comment on above: Performed By: #### L IPID, CMP #### [facility] [address] [address] [address] Laura Genao EGFR-AF ALGERIAN >60 Normal >=60 [facility] Comment on above: Performed By: #### L IPID, CMP #### [facility] [address] [address] [address] Laura Genao EGFR-NON AF ALGERIAN >60 Normal >=60 [facility] Comment on above: Performed By: #### L IPID, CMP #### [facility] [address] [address] [address] Laura Genao Globulin (S) [Mass/Vol] 2.9 g/dL Normal [facility] Comment on above: Performed By: #### L IPID, CMP #### [facility] [address] [address] [address] Laura Genao Glucose [Mass/Vol] 105 mg/dL Normal 74-106 [facility] Comment on above: Performed By: #### L IPID, CMP #### [facility] [address] [place] [address] Dr. Laura Gneao Potassium [Moles/Vol] 3.6 mmol/L Normal 3.5-5.1 [facility] Comment on above: Performed By: #### L IPID, CMP #### [facility] [address] [place] [address] Dr. Laura Genao Protein [Mass/Vol] 6.9 g/dL Normal 6.4-8.2 [facility] Comment on above: Performed By: #### L IPID, CMP #### [facility] [address] [place] [address] Dr. Laura Genao Sodium [Moles/Vol] 140 mmol/L Normal 136-145 [facility] Comment on above: Performed By: #### L IPID, CMP #### [facility] [facility] [address] [place] [address] Dr. Laura Genao Urea nitrogen [Mass/Vol] 17.0 mg/dL Normal 7.0-18.0 [facility] Comment on above: Performed By: #### L IPID, CMP #### [facility] [address] [place] [address] Dr. Laura Genao Urea nitrogen/Creatinin e [Mass ratio] 21.0 mg/mg Normal [facility] Comment on above: Performed By: #### L IPID, CMP #### [facility] [address] [place] [address] Dr. Laura Genao VITAMIN D 25 OHon 09-09-2021 VIT D 25-OH 40.9 ng/mL Normal [facility] Comment on above: Performed By: #### V ITAD #### [facility] [address] [place] [address] Dr. Laura Genao VIT D RANGES SEE BELOW Normal [facility] Comment on above: Result Comment: <20 ng/mL Vit D deficient 20 - <30 ng/mL Vit D insufficient 30 - 100 ng/mL Vit D sufficient >100 ng/mL Potential Toxicity Performed By: #### V ITAD #### [facility] [address] [place] [address] Dr. Laura Genao Vital Signs Date Time Vital Sign Value Performing Clinician Facility 06-23-2022 14:05-0400 Body height 162.56 cm Mary Barr Other [facility] Other 06-23-2022 14:05-0400 Body mass index (BMI) [Ratio] 16.82 kg/m2 Mary Barr Other [facility] Other 06-23-2022 14:05-0400 Body temperature 98.3 [degF] Mary Barr Other [facility] Other 06-23-2022 14:05-0400 Body weight 44.45 kg Mary Barr Other [facility] Other 06-23-2022 14:05-0400 Respiratory rate 18 /min Mary Barr Other [facility] Other 06-23-2022 14:05-0400 SaO2% (BldA) [Mass fraction] 95 % Mary Barr Other [facility] Other 06-01-2022 16:00-0400 Body height 162.56 cm Keara Shira Other [facility] Other 06-01-2022 16:00-0400 Body mass index (BMI) [Ratio] 17.37 kg/m2 Keara Shira Other [facility] Other 06-01-2022 16:00-0400 Body temperature 98.4 [degF] Keara Santosmond Other [facility] Other 06-01-2022 16:00-0400 Body weight 45.9 kg Keara Shira Other [facility] Other 06-01-2022 16:00-0400 Diastolic blood pressure 89 mm[Hg] Keara Silva Other [facility] Other 06-01-2022 16:00-0400 Respiratory rate 18 /min Keara Silva Other [facility] Other 06-01-2022 16:00-0400 SaO2% (BldA) [Mass fraction] 96 % Keara Silva Other [facility] Other 06-01-2022 16:00-0400 Systolic blood pressure 152 mm[Hg] Keara Silva Other [facility] Other 05-10-2022 08:30-0500 Body height 162.56 cm Haylie Mueller Other [facility] Other 05-10-2022 08:30-0500 Body mass index (BMI) [Ratio] 16.48 kg/m2 Haylie Mueller Other [facility] Other 05-10-2022 08:30-0500 Body weight 43.55 kg Haylie Mueller Other [facility] Other 01-01-2022 10:54-0400 Body height 162.6 cm Brandon Arshad MD Work Phone: [facility] 01-01-2022 10:54-0400 Body temperature 97.5 [degF] Brandon Arshad MD Work Phone: [facility] 01-01-2022 10:54-0400 Body weight 43 kg Brandon Arshad MD Work Phone: [facility] 01-01-2022 10:54-0400 Diastolic blood pressure 80 mm[Hg] Brandon Arsahd MD Work Phone: [facility] 01-01-2022 10:54-0400 Heart rate 88 /min Brandon Arshad MD Work Phone: [facility] 01-01-2022 10:54-0400 Respiratory rate 18 /min Brandon Arshad MD Work Phone: [facility] 01-01-2022 10:54-0400 SaO2% (BldA) [Mass fraction] 97 % Brandon Arshad MD Work Phone: [facility] 01-01-2022 10:54-0400 Systolic blood pressure 162 mm[Hg] Brandon Arshad MD Work Phone: [facility] Encounters Encounter Date Encounter Type Care Provider Facility Start: 04-10-2023 Refill Mary Chun NP Work Phone: [facility] Comment on above: Postoperative hypoth yroidism (CMS/HCC) (Primary Dx); Seasonal allergies Start: 04-01-2023 Patient encounter procedure Mary Chun WAIST PLEATER Work Phone: [facility] Start: 04-01-2023 End: 04-01-2023 ambulatory MARY AICHHOLZ Not Available Start: 03-05-2023 End: 03-05-2023 ambulatory MARY AICHHOLZ Not Available Start: 08-01-2022 ambulatory [employer] MARY BRI Facil ity:[facility] Start: 06-23-2022 End: 06-23-2022 ambulatory Mary Barr Other [facility] Other Start: 06-23-2022 Office outpatient vi sit 25 minutes Mary Barr [facility] Start: 06-12-2022 End: 06-12-2022 ambulatory Adithya Boykin Other [facility] Other Start: 06-12-2022 Office outpatient vi sit 25 minutes Adithya Boykin [facility] Start: 06-04-2022 End: 06-05-[address] ENDY PRADHAN Facility:[facility] Start: 06-01-2022 End: 06-01-2022 ambulatory Keara Silva Other [facility] Other Start: 06-01-2022 Office outpatient vi sit 15 minutes Keara Silva [facility] Start: 05-24-2022 End: 05-24-2022 ambulatory Adithya Richardsonsandy Other [facility] Other Start: 05-24-2022 Telephone encounter Adithya Ashutosh [facility] Start: 05-10-2022 End: 05-10-2022 ambulatory Haylie Mueller Other [facility] Other Start: 05-10-2022 Office outpatient ne w 45 minutes Haylie Mueller [facility] Start: 04-28-2022 End: 04-28-2022 ambulatory CROW HERNANDEZ Facility:[facility] Start: 01-01-2022 Telephone encounter Brandon mcdonald MD Work Phone: [facility] Comment on above: Appointment Start: 01-01-2022 End: 01-02-2022 ambulatory BRANDON ARSHAD Facility:[facility] Start: 01-01-2022 End: 01-02-2022 ambulatory Brandon Arshad MD Work Phone: Hematology/Oncology Comment on above: Abnormal CBC measure ment (Primary Dx) Start: 01-01-2022 End: 01-02-2022 Patient encounter procedure Brandon Arshad MD Work Phone: [facility] Start: 12-27-2021 Chart abstracting Brandon petit MD Work Phone: Hematology/Oncology Start: 11-09-2021 End: 11-10-2021 ambulatory ANA CHUN Facility:[facility] Start: 10-20-2021 End: 10-21-[address] ELISABETH MCDONALD Facility:[facility] Start: 10-09-2021 End: 10-10-2021 ambulatory [employer] MARY BRI Facility:[facility] Start: 09-09-2021 End: 09-10-2021 ambulatory [employer] MARY JASETwilaALEXANDRA Facility:[facility] Procedures Date Procedure Procedure Detail Performing Clinician Start: 04-01-2023 Microscopic observat ion [Identifier] in Cervix by Cyto stain Mary Chun WAIST [employer]ATER Work Phone: Start: 08-01-2022 Mammography Mary whitfield WAIST PLEATER Work Phone: Plan of Treatment Date Care Activity Detail Author Start: 04-01-2026 Screening for malign ant neoplasm of cervix [facility] Start: 03-05-2024 Screening for malign ant neoplasm of colon Colorectal Cancer Screening [facility] Comment on above: Postponed from 04/13 (Patient Refused) Start: 09-01-2023 Influenza vaccination Influenza Vacc ine (#1) [facility] Comment on above: Postponed from 11/02 (Patient Refused) Start: 08-02-2023 Screening for malign ant neoplasm of breast Mammogram [facility] Start: 06-05-2023 End: 06-05-2023 Patient encounter procedure 06/05/2023 9:20 AM EDT Office Visit [facility] [address] [place] [id number] Mary Chun NP [address] [place] [id number] [facility] Start: 11-02-2022 Influenza vaccination INFLUENZA (#1) [facility] Start: 03-04-2022 DEPRESSION ASSESSMENT [facility] Start: 11-02-2021 Influenza vaccination INFLUENZA (#1) [facility] Start: 03-04-2021 DEPRESSION ASSESSMENT DEPRESSION [facility] Start: 2009 SHINGRIX VACCINE (1 of 2) SHINGRIX V ACCINE (1 of 2) [facility] Start: 2004 COLOGUARD (FIT-DNA) COLOGUARD (FIT-D NA) [facility] Start: 2004 Colonoscopy COLONOSCOPY [facility] Start: 2004 COLORECTAL CANCER SCREENING COLORECTAL CANCER SCREENING [facility] Start: [address] COLONOGRAPHY [facility] Start: 2004 DIABETES SCREEN DIABETES SCREEN [facility] Start: 2004 FECAL OCCULT BLOOD FECAL OCCULT BLOO D [facility] Start: 2004 LIPID SCREEN LIPID SCREEN [facility] Start: 2004 SIGMOIDOSCOPY SIGMOIDOSCOPY [facility] Start: 1999 Mammography MAMMOGRAM [facility] Start: 1989 HPV TESTING HPV TESTING [facility] Start: 1989 Screening for malign ant neoplasm of cervix HPV/Cotest [facility] Start: 1980 PAP TESTING PAP TESTING [facility] Start: 1978 Urine microalbumin profile DTAP,TDAP,TD (1 - Tdap) [facility] Start: 1977 HEPATITIS C SCREENING HEPATITIS C SC REENING [facility] Start: 1977 HIV SCREENING HIV SCREENING [facility] Start: 1959 COVID-19 VACCINE (#1) COVID-19 VACCI NE (#1) [facility] Start: 1959 Screening for malign ant neoplasm of colon [facility] Payers Date Payer Category Payer Medicaid [id number] 2. [id number] 2020 Medicaid [id number] 1959 Unknown [id number] 2.16.84 [id number] 1959 Unknown [id number] 2.16.84 [id number] 1959 Unknown [id number] 2.16.84 [id number] 1959 Unknown [id number] 2.16.84 [id number] 1959 Unknown [id number] 2.16.84 [id number] 1959 Unknown [id number] 2.16.84 [id number] 1959 Unknown [id number] 2.16.84 [id number] 1959 Unknown [id number] 2.16.84 [id number] 1959 Unknown [id number] 2.16.84 [id number] 1959 Unknown [id number] 2.16.840 .[id number] 1959 Unknown [id number] 1959 Unknown [id number] Social History Date Type Detail Facility Tobacco smoking stat [facility] Tobacco smoking consumption unknown [facility] Start: 1960 Sex Assigned At Not on file [facility] Start: 01-01-2022 End: 11-13-2022 Tobacco smoking status NJIS Ex-smoker [facility] History of tobacco use Current smoker [facility] History of tobacco use Cigarette Smoker [facility] History of tobacco use Passive smoker [facility] Start: 01-01-2022 End: 11-13-2022 Tobacco use and exposure Smokeless tobacco non-user [facility] Start: 01-01-2022 End: 04-01-2023 Alcohol intake Ex-drinker (finding) [facility] Start: 12-22-2021 End: 01-01-2022 Exposure to SARS-CoV-2 (event) Not sure [facility] Start: 01-01-2022 End: 03-05-2023 Sex Assigned At [facility] Start: 01-01-2022 End: 03-05-2023 History of Social function [facility] Within the last year , have you been afraid of your partner or ex-partner? No [facility] Do you belong to any clubs or organizations such as tenriism groups, unions, fraternal or athletic groups, or school groups? Yes [facility] Are you now , , , , never or living with a partner? Refused [facility] How often to you hav e a drink containing alcohol? Monthly or less [facility] How many standard dr inks containing alcohol do you have on a typical day? 1 or 2 [facility] How often do you hav e 6 or more drinks on 1 occasion? Less than monthly [facility] How hard is it for y ou to pay for the very basics like food, housing, medical care, and heating Not hard at all [facility] Do you feel stress - tense, restless, nervous, or anxious, or unable to sleep at night because your mind is troubled all the time - these days [OSQ] Only a little [facility] (I/We) worried wheth er (my/our) food would run out before (I/we) got money to buy more. Never true [facility] Start: 03-03-2023 Alcohol Comment caffeine 1-2 cups per day [facility] Clinical Notes 01-01-2022 to 06-23-2022 Note Date & Type Note Facility 06-23-2022 Evaluation note Encounter Date Diagnosis Assessment Notes Jun, Laryngitis (ICD-10 - J04.0) Discussed diagnosis with patient. Differential diagnosis includes laryngitis versus allergic rhinitis. No testing performed today in office. We will send in Rx of prednisone and cetirizine to use as directed. Encouraged supportive care as directed Tylenol, OTC cold medications, Flonase, salt water gargles, cool mist humidification, throat lozenges as needed. Patient to follow-up with PCP if symptoms do not improve. Immediate evaluation in ER for signs/symptoms as discussed. Patient verbalizes understanding and is agreeable with treatment plan. [facility] Other 04-11-2023 Evaluation note* Encounter Date Diagnosis Assessment Notes Treatment Notes Treatment Clinical Notes Jun, Primary osteoarthritis of right shoulder (ICD-10 - M19.011) MRI images and findings reviewed with patient. Extensive discussion about current condition and treatment options available. We will treat this as a shoulder contusion for now. Patient instructed on gentle motion and strength exercises. Patient defers order for formal therapy. Progress as tolerated Jun, Contusion of right shoulder, initial encounter (ICD-10 - S40.011A) Jun, Strain of right shoulder, initial encounter (ICD-10 - S46.911A) [facility] Other 03-31-2023 Evaluation note* Encounter Date Diagnosis Assessment Notes Treatment Notes Treatment Clinical Notes May, Bronchitis (ICD-10 - J40) Acute bronchitis material was printed Drink plenty fluids, get plenty of rest. Take the prednisone as prescribed until gone. Use the albuterol inhaler as prescribed as needed for cough or shortness of breath. Take Delsym or Robitussin for cough. Follow-up with your family physician if no improvement in 2 to 3 days [facility] Other 03-09-2023 Evaluation note* Encounter Date Diagnosis Assessment Notes Treatment Notes Treatment Clinical Notes May, Internal derangement of right shoulder (ICD-10 - M24.811) I have a high suspicion of a rotator cuff tear based on the history of symptoms and physical exam findings. An MRI will be necessary to plan further treatment options and potential surgery. MRI sent to [place] per patient request. Advised patient to bring disk and report to MRI follow up appt. Provided xanax script to use prior to MRI. Patient sedation sheet reviewed and signed with patient. [facility] Other 11-01-2022 NoteHNO ID: [id number] Author: Brandon Arshad MD Service: ? Author Type: Physician Type: Progress Notes Filed: 01/02/2022 5:53 PM Note Text: Patient left office prior to eval.[facility]11-01-2022 History of Present illness Narrative* Brandon Arshad MD - 01/02/2022 5:52 PM EDT Patient left office prior to eval. [facility] Miscellaneous Notes* Telephone Encounter - Sobeida Franco - 01/01/2022 12:42 PM EDT Patient did not want to wait to be seen by Dr. Dominik. Patient stated she had a lot going on right nowand her father recently . And she wasn't going to wait any longer. [facility] Diagnosis Abnormal CBC measurement- Primary Other abnormal blood chemistry documented in this encounter [facility] noteNo InformationNortCon[facility] Other Evaluation note* Diagnosis Postoperative hypothyroidism ([facility])- Primary Postsurgical hypothyroidism Seasonal allergies Allergic rhinitis, cause unspecified documented in this encounter [facility] HealthcareHistory general Narrative - Reported* Type Description Date Medical History Osteoporosis, unspec ified osteoporosis type, unspecified pathological fracture presence Medical History Primary insomnia Medical History Hypercholesterolemia Medical History Seasonal allergic rh initis, unspecified chronicity, unspecified trigger Medical History Benign essential HTN Surgical History fracture repair Surgical History Foot Surgery Surgical History wisdom teeth Hospitalization History fracture [facility] [employer] Other History general Narrative - Reported* Type Description Date Medical History Osteoporosis, unspec ified osteoporosis type, unspecified pathological fracture presence Medical History Primary insomnia Medical History Hypercholesterolemia Medical History Seasonal allergic rh initis, unspecified chronicity, unspecified trigger Medical History Benign essential HTN Medical History RIGHT SHOULDER ROTATOR CUFF TORN AND BICEP Surgical History fracture repair Surgical History Foot Surgery Surgical History wisdom teeth Surgical History THYROID REMOVED 12/2019 Surgical History ABDOMINAL SURGERY A INFANT Hospitalization History fracture Hospitalization History CHILD BIRTHS Hospitalization History THYROID SURGERY Emailage [facility] [employer] Other Summary Purpose Family History No Family History Records FoundNo Family History Records FoundNo Family History Records Found Advance Directives No Advanced Directives Records FoundNo Advanced Directives Records FoundNo Advanced Directives Records Found Additional Source Comments Source Comments (unrecognize d section and content) In the event this informatio n is protected by the Federal Confidentiality of Alcohol and Drug Abuse Patient Records regulations: The Federal rules restrict any use of the information to criminally investigate or prosecute any alcohol or drug abuse patient.[facility] the event this information is protected by the Federal Confidentiality of Alcohol and Drug Abuse Patient Records regulations: The Federal rules restrict any use of the information to criminally investigate or prosecute any alcohol or drug abuse patient.[facility] the event this information is protected by the Federal Confidentiality of Alcohol and Drug Abuse Patient Records regulations: The Federal rules restrict any use of the information to criminally investigate or prosecute any alcohol or drug abuse patient.[facility] Care Teams (unrecognized sec tion and content) [employer] Search Lead Relationship Specialty Start Date End Date Mary Chnu CNP PCP - General Family Medicine 05/11/14 Organic Search Lead Relationship Specialty Start Date End Date Mary Chun CNP PCP - General Family Medicine 05/11/14 Organic [employer] Lead Relationship Specialty Start Date End Date Mary Chun CNP PCP - General Family Medicine 05/11/14 Organic Search Lead Relationship Specialty Start Date End Date Xu Gentile MD [address] [facility] [place] [address] PCP - General Family Medicine 04/01/23 Reason for Visit (unrecogniz ed section and content) Reason Comments Abnormal CBC New patient consult Reason Comments Appointment Reason Comments Med Refill INFORMATION SOURCE (unrecogn ized section and content) DATE CREATED AUTHOR 08/10/2022 [facility] DATE CREATED AUTHOR AUTHOR'S ORGANIZ ATION 10/13/2022 [facility] DATE CREATED AUTHOR AUTHOR'S ORGANIZ ATION 04/01/2023 [facility] FOR RECORDS PERTAINING TO PATIENTS WHO ARE OR HAVE BEEN ENROLLED IN A CHEMICAL DEPENDENCY/SUBSTANCEABUSE PROGRAM, SOME INFORMATION MAY BE OMITTED. This clinical summary was aggregated from multiple sources. Caution should be exercised in using it in the provision of clinical care. This summary normalizes information from multiple sources, and as a consequence, information in this document may materially change the coding, format and clinical context of patient data. In addition, data may be omitted in some cases. CLINICAL DECISIONS SHOULD BE BASED ON THE PRIMARY CLINICAL RECORDS. [employer] provides no warranty or guarantee of the accuracy or completeness of information in this document.
[2023-04-15 10:42] LABS: Basophils Absolute Auto 0.1 10^3/uL (0.0-0.1); Basophils Percent Auto 1.8 % (0.2-2.0); Eosinophils Absolute Auto 0.3 10^3/uL (0.0-0.7); Eosinophils Percent Auto 6.8 % (0.9-7.0); Hematocrit 39.1 % (36.0-48.0); Hemoglobin 12.5 g/dL (12.0-16.0); Immature Granulocytes Abs Auto 0.02 10^3/uL (0.00-0.03); Immature Granulocytes Pct Auto 0.5 % (0.0-0.5); Lymphocytes Absolute Auto 0.8 10^3/uL (1.2-3.8); Lymphocytes Percent Auto 18.9 % (20.5-60.0); Mean Corpuscular Volume 93.8 fL (81.0-99.0); Mean Platelet Volume 8.8 fL (9.5-13.5); Monocytes Absolute Auto 0.4 10^3/uL (0.3-0.8); Neutrophils Absolute Auto 2.7 10^3/uL (1.4-6.5); Platelet Count 243 10^3/uL (150-450); Red Blood Count 4.17 10^6/uL (4.20-5.40); Red Cell Distribution Width 12.2 % (11.0-15.0); White Blood Count 4.4 10^3/uL (4.0-11.0)
[2023-04-15 10:42] LABS: Bilirubin Urine NEGATIVE (NEGATIVE); Blood Urine NEGATIVE (NEGATIVE); Clarity Urine CLEAR (CLEAR); Color Urine LT. YELLOW (YELLOW); Glucose Urine UA NEGATIVE (NEGATIVE); Ketones Urine NEGATIVE (NEGATIVE); Leukocyte Esterase Urine NEGATIVE (NEGATIVE); Nitrite Urine NEGATIVE (NEGATIVE); Protein Urine NEGATIVE (NEG/TRACE); Specific Gravity Urine 1.015 (1.005-1.025); pH Urine 7.5 (5.0-9.0)
[2023-04-15 10:44] LABS: Urine Microscopic Indicated NO
[2023-04-15 10:52] LABS: Creatinine Urine Random 108.59 mg/dL (20.00-300.00); Microalbum Creatinine Ratio Ur 11.9 mg/g (0.0-29.9); Microalbumin Urine Random <1.3 mg/dL (<=30.0)
[2023-04-15 10:58] LABS: Alanine Aminotransferase 20 U/L (14-59); Albumin Level 3.5 g/dL (3.4-5.0); Alkaline Phosphatase 61 U/L (46-116); Anion Gap 8.7; Aspartate Amino Transferase 16 U/L (15-37); BUN Creatinine Ratio 33.3; Bilirubin Total 0.2 mg/dL (0.2-1.0); Calcium 8.5 mg/dL (8.5-10.1); Carbon Dioxide 33.4 mmol/L (21.0-32.0); Chloride 105 mmol/L (98-107); Chol HDL Ratio 2.4; Cholesterol 193 mg/dL (<=200); Estimated GFR (African America >60 (>=60); Estimated GFR (Non-African Ame >60 (>=60); Globulin 3.5 g/dL; Glucose 105 mg/dL (74-106); HDL Cholesterol 81 mg/dL (40-60); Potassium 4.1 mmol/L (3.5-5.1); Sodium 143 mmol/L (136-145); TSH W/ REFLEX FT4 2.352 uIU/mL (0.358-3.740); Triglycerides 73 mg/dL (<=150); VLDL CHOLESTEROL 14.6 mg/dL
== END 2023-04-15 10:07 | disposition home or self-care (01) ==
LOC: LAB 10:10
PROVIDERS: PCP Nurse Practitioner; Visit Provider Nurse Practitioner
DX: K21.9 Gastro-esophageal reflux disease without esophagitis (principal); E89.0 Postprocedural hypothyroidism; E78.2 Mixed hyperlipidemia; I10 Essential (primary) hypertension
CPT/HCPCS: 36415; 80053; 80061; 81003; 82043; 82570; 84443; 85025

== ENCOUNTER 2024-08-03 11:08 | Outpatient (OUT) | payer OTHER, SELFPAY ==
--- NOTE | 2024-08-03 11:36 | XR_ITS ---
[facility] [place] [id number] Patient Name: ECTOR HUTCHISON MRN: [id number] date: 1960 Sex: F Assigned Patient Location: LAB Current Patient Location: LAB Accession/Order Number: [id number] Exam Date: 08/03/2024 12:20 Report Date: 08/03/2024 12:23 At the request of: NICKY GREGORY NP Procedure: XR hand RT min 3V RIGHT HAND - 3 views CLINICAL DATA: Pain at the right thumb. No injury. COMPARISON: None AP, lateral and oblique views were obtained. There might be an old ununited ulnar styloid fracture. There is no acute fracture or dislocation. There is minor hypertrophy at some the interphalangeal joints and mild at the first carpal metacarpal joint. Soft tissue calcification is present along the dorsal medial aspect of the head of the proximal phalanx of the fifth finger with slight associated soft tissue bulging. There are no other soft tissue abnormalities. XR/XR hand RT min 3V IMPRESSION: MILD DEGENERATIVE CHANGES. NO ACUTE BONY FINDINGS. Impression dictated by: Frances Lee M.D. 08/03/2024 12:23 PM Dictation Location: [place] [address] Electronically authenticated by: [id number] Y Date: 08/03/2024 12:23
== END 2024-08-03 11:09 | disposition home or self-care (01) ==
LOC: RAD 11:15 → LAB 11:25 → RAD 13:20
PROVIDERS: PCP Nurse Practitioner; Visit Provider Nurse Practitioner
DX: M79.644 Pain in right finger(s) (principal)
CPT/HCPCS: 73130

== ENCOUNTER 2024-08-10 08:23 | Outpatient (OUT) | payer OTHER, SELFPAY ==
--- NOTE | 2024-08-10 08:26 | MM_ITS ---
Patient Name: ECTOR HUTCHISON MR#: [id number] : 1960 Exam Date: 08/10/2024 Ordering Doctor: ANA GREGORY CNP RADIOLOGY REPORT PROCEDURE: MM TOMOSYNTHESIS SCREENING BI COMPARISON: MG MAMM SCREEN 3D JENNIFER CAD, 08/01/2022. MG MAMM SCREEN 3D JENNIFER CAD, 05/23/2021. MG MAMM SCREEN JENNIFER W CAD, 03/08/2020. MG MAMM JENNIFER SCRN W CAD DIG, 06/24/2015. INDICATIONS: Screening Calculator Name NCI Breast Cancer Risk Assessment Tool 5 Year Breast Cancer Risk 1.70% Lifetime Breast Cancer Risk 6.30% Personal Breast Cancer No Personal Ovarian Cancer No Treatments None Family Cancers Grandmother-maternal with breast cancer at age 80; Mother with lung cancer at age 72; Father with prostate cancer at age 55. LOCATION: [facility] BREAST COMPOSITION: The breasts are extremely dense, which lowers the sensitivity of mammography. FINDINGS: RIGHT BREAST: No significant suspicious finding. LEFT BREAST: No significant suspicious finding. DIAGNOSTIC CATEGORY 1--NEGATIVE. RECOMMENDATIONS: ROUTINE MAMMOGRAM AND CLINICAL EVALUATION IN 12 MONTHS. PLEASE NOTE: A NORMAL MAMMOGRAM DOES NOT EXCLUDE THE POSSIBILITY OF BREAST CANCER. A CLINICALLY SUSPICIOUS PALPABLE LUMP SHOULD BE BIOPSIED. Dictated by: Naveed Dorman DO on 08/10/2024 at 11:20 Approved by: Naveed Dorman DO on 08/10/2024 at 11:22
--- OUTSIDE RECORDS SUMMARY | 2024-08-10 08:26 | XMS_ITS | Encounter Summary ---
Author Organization [employer] Address [id number] [address] [place] [address] Care Team Providers Care Business Services Vice President Name Role Phone Unavailable Primary Care Provider Unavailabl e Encounter Details Date Type Department Care Team (Late st Contact Info) Description 03/21/2022 Abstract [facility] - Medical Oncology [address] [place] [address] Chadwick Saxena MD [address] [facility] [address] [place] [id number] Social History Tobacco Use Types Packs/Day Years Used Date Smoking Tobacco: Never Assessed Comments Unknown Sex and Gender Information Value Date Recorded Sex Assigned at Not on file Legal Sex Female 3:22 PM EST Gender Identity Not on file Sexual Orientation Not on file documented as of this encounter Plan of Treatment Not on file documented as of this encounter Procedures Procedure Name Priority Date/Time Associated Diagnosis Comments MULTIPLE LABS Routine 11/07/2021 documented in this encounter Results * Multiple labs (11/07/2021) 11/07/2021 us Not In System Ref Prov [facility] Final Res ult documented in this encounter Visit Diagnoses Not on filedocumented in this encounter
--- OUTSIDE RECORDS SUMMARY | 2024-08-10 08:27 | XMS_ITS | Encounter Summary ---
Author Organization [facility] Address [address] [place] [address] Care Team Providers Care Watch Crystal Edge Grinder Name Role Phone Xu Gentile MD Primary Care Provider [phone] Mary Chun RIG HAND Unavailable [phone] Encounter Details Date Type Department Care Team (Late st Contact Info) Description 08/03/2024 Clinisync Result Encounter [facility] Department Unsolicited Mary Chun, RIG HAND [address] [place] [id number] Social History Tobacco Use Types Packs/Day Years Used Date Smoking Tobacco: Former Cigarettes Smokeless Tobacco: Never Alcohol Use Standard Drinks/Week Comments Not Currently 0 (1 standard drink = 0.6 oz pur e alcohol) caffeine 1-2 cups per day B1300 Health Literacy Answer Date Recor ded How often do you need to hav e someone help you when you read instructions, pamphlets, or other written material from your doctor or pharmacy? Never 12/03/2023 Humiliation, Afraid, Rape, and Kick questionnair e Answer Date Recorded Within the last year, have y ou been afraid of your partner or ex-partner? No 03/05/2023 Within the last year, have y ou been humiliated or emotionally abused in other ways by your partner or ex-partner? No Within the last year, have y ou been kicked, hit, slapped, or otherwise physically hurt by your partner or ex-partner? No 03/05/2023 Within the last year, have y ou been raped or forced to have any kind of sexual activity by your partner or ex-partner? No 03/05/2023 Social Connection and Isolation Panel [NHANES] A nswer Date Recorded In a typical week, how many times do you talk on the phone with family, friends, or neighbors? Twice a week 12/03/19 How often do you get togethe r with friends or relatives? Once a week 12/03/2023 How often do you attend chur or presybeterian services? 1 to 4 times per year 12/03/2023 Do you belong to any clubs o r organizations such as restoration groups, unions, fraternal or athletic groups, or school groups? No 12/03/2023 How often do you attend meet ings of the clubs or organizations you belong to? Never 12/03/2023 Are you , , di vorced, , never , or living with a partner? Living with partner 12/03/2023 AUDIT-C Answer Date Recorded Q1: How often do you have a drink containing alc ohol? 2-3 times a week 12/03/2023 Q2: How many drinks containi ng alcohol do you have on a typical day when you are drinking? 1 or 2 12/03/2023 Q3: How often do you have si x or more drinks on one occasion? Never 12/03/2023 Overall Financial Resource Strain (CARDIA) Answe r Date Recorded How hard is it for you to pa y for the very basics like food, housing, medical care, and heating? Somewhat hard 12/03/2023 PHQ-2 Answer Date Recorded Patient Health Questionnaire-2 Score 0 05/07/2024 [facility] - Occupational Stress Questionnaire Answer Date Recorded Do you feel stress - tense, restless, nervous, or anxious, or unable to sleep at night because your mind is troubled all the time - these days? Not at all 12/03/2023 Exercise Vital Sign Answer Date Recorde d On average, how many days pe r week do you engage in moderate to strenuous exercise (like a brisk walk)? 5 days 12/03/2023 On average, how many minutes do you engage in exercise at this level? 20 min 12/03/2023 Hunger Vital Sign Answer Date Recorded Within the past 12 months, y ou worried that your food would run out before you got the money to buy more. Never true 12/03/19 24 Within the past 12 months, t he food you bought just didn't last and you didn't have money to get more. Never true 12/03/2023 PRAPARE - Transportation Answer Date Re corded In the past 12 months, has l ack of transportation kept you from medical appointments or from getting medications? No 03/2023 In the past 12 months, has l ack of transportation kept you from meetings, work, or from getting things needed for daily living? No 12/03/2023 Housing Stability Vital Sign Answer Joseph e Recorded In the last 12 months, was t here a time when you were not able to pay the mortgage or rent on time? No 03/05/2023 Number of Places Lived in the Last Year Not on f ile 03/05/2023 In the last 12 months, was t here a time when you did not have a steady place to sleep or slept in a fpc (including now)? No 03/05/2023 Housing Stability Vital Sign Answer Joseph e Recorded In the last 12 months, was t here a time when you were not able to pay the mortgage or rent on time? No 12/03/2023 Number of Times Moved in the Last Year Not on fi le 12/03/2023 At any time in the past 12 m [facility], were you homeless or living in a fpc (including now)? No 12/03/2023 Comments Unknown Sex and Gender Information Value Date Recorded Sex Assigned at Not on file Legal Sex Female 7:36 PM EDT Gender Identity Not on file Sexual Orientation Not on file documented as of this encounter Plan of Treatment Upcoming Encounters Date Type Department Care Team (Late st Contact Info) Description 08/11/2024 9:20 AM EDT Office Visit [facility] [address] [place] [address] Mary Chun NP [address] [place] [phone] 05/11/2025 10:00 AM EDT Office Visit [facility] [address] [place] [phone] Mary Chun NP [address] [place] [phone] documented as of this encounter Procedures Procedure Name Priority Date/Time Associated Diagnosis Comments XR HAND 3+ VIEWS RIGHT 08/03/2024 12:23 PM EDT documented in this encounter Results * XR hand 3+ views right (08/03/2024 12:23 PM EDT) Anatomical Region Laterality Modality Upper Extremities, Hand Right Radiogra phic Imaging 08/03/2024 12:2 3 PM EDT Narrative 08/03/2024 12:26 [place] [address] XRay Report Signed Patient: ECTOR HUTCHISON MR#: [id number] : 1960 Acct:[id number] Age/Sex: 64 / F ADM Date: 08/03/24 Loc: LAB Attending Dr: Mary Chun NP Ordering Physician: Mary Chun NP Date of Service: 08/03/24 Procedure(s): XR hand RT min 3V Accession Number(s): [id number] cc: Mary Chun NP The [address] [address] Patient Name: ECTOR HUTCHISON MRN: [id number] date: 1960 Sex: F Assigned Patient Location: LAB Current Patient Location: LAB Accession/Order Number: [id number] Exam Date: 08/03/2024 12:20 Report Date: 08/03/2024 12:23 At the request of: MARY CHUN NP Procedure: XR hand RT min 3V RIGHT HAND - 3 views CLINICAL DATA: Pain at the right thumb. No injury. COMPARISON: None AP, lateral and oblique views were obtained. There might be an old ununited ulnar styloid fracture. There is no acute fracture or dislocation. There is minor hypertrophy at some the interphalangeal joints and mild at the first carpal metacarpal joint. Soft tissue calcification is present along the dorsal medial aspect of the head of the proximal phalanx of the fifth finger with slight associated soft tissue bulging. There are no other soft tissue abnormalities. XR/XR hand RT min 3V IMPRESSION: MILD DEGENERATIVE CHANGES. NO ACUTE BONY FINDINGS. Impression dictated by: Frances Lee M.D. 08/03/2024 12:23 PM Dictation Location: [place] [address] Electronically authenticated by: [id number] Y Date: 08/03/2024 12:23 Dictated By: Frances Lee M.D. Signed By: 08/03/24 1226 DD/ 1223 TD/TT: Office Rep: Procedure Note Radiology, Radiologist, MD - 08/03/2024 [place] [address] XRay Report Signed Patient: ECTOR HUTCHISON SMR#: [id number] : 1960Acct:[id number] Age/Sex: 64 / FADM Date: 08/03/24 Loc: LAB Attending Dr: Mary Chun NP Ordering Physician: Mary Chun NP Date of Service: 08/03/24 Procedure(s): XR hand RT min 3V Accession Number(s): [id number] cc: Mary Chun NP [place] [address] Patient Name: ECTOR HUTCHISON MRN: [id number] date: 1960 Sex: F Assigned Patient Location: LAB Current Patient Location: LAB Accession/Order Number: [id number] Exam Date: 08/03/2024 12:20 Report Date: 08/03/2024 12:23 At the request of: MARY CHUN NP Procedure: XR hand RT min 3V RIGHT HAND - 3 views CLINICAL DATA: Pain at the right thumb. No injury. COMPARISON: None AP, lateral and oblique views were obtained. There might be an oldununited ulnar styloid fracture. There is no acute fracture or dislocation. Thereis minor hypertrophy at some the interphalangeal joints and mild at the first carpal metacarpal joint. Soft tissue calcification is present along the dorsal medial aspect of the head of the proximal phalanx of the fifthfinger with slight associated soft tissue bulging. There are no other softtissue abnormalities. XR/XR hand RT min 3V IMPRESSION: MILD DEGENERATIVE CHANGES. NO ACUTE BONY FINDINGS. Impression dictated by: Frances Lee M.D. 08/03/2024 12:23 PM Dictation Location: [place] [address] Electronically authenticated by: [id number] Y Date: 2:23 Dictated By: Frances Lee M.D. Signed By:08/03/24 1226 DD/ 1223 TD/TT: Office Rep: Mary Chun NP IMG XR PROCEDURES Final Result documented in this encounter Visit Diagnoses Not on filedocumented in this encounter Additional Health Concerns Assessment Noted Time PHQ-9 Depression Total Score: 4 05/08/19 25 11:30 AM EST documented as of this encounter Care Teams Watch Crystal Edge Grinder Relationship Specialty Start Date End Date Xu Gentile MD [address] [place] [address] PCP - General Family Medicine 04/01/23 Mary Chun NP [address] [address] Nurse Practitioner Family Medicine 05/07/24 documented as of this encounter
--- OUTSIDE RECORDS SUMMARY | 2024-08-10 08:27 | XMS_ITS | Clinical Summary ---
Author Organization [facility] Address [address] [place] [address] Care Team Providers Care Compliance Testing Analyst Name Role Phone Xu Gentile MD Primary Care Provider Mray Chun NP Unavailable [phone] Allergies Active Allergy Reactions Criticality Noted Date Comments Atorvastatin Unknown Medium 11/13/2022 Bee Venom Unknown Medium 11/13/2022 Terbinafine Hcl Rash Low 11/13/2022 Tolnaftate Rash Low 11/13/2022 Medications loratadine-pseudoe phedrine ER (Claritin-D 12-hour) 5-120 MG 12 hr tablet Take 1 tablet by mouth in the morning and 1 tablet before bedtime. Active Calcium Carbonate (CALCIUM 500 PO) Take 1 tablet by mouth in the morning. Active MULTIPLE VITAMIN PO Take 1 tablet by mouth in the morning. Active fish oil (Webster-3) 500 MG capsule Take 500 mg by mouth Daily Active EPINEPHrine (Epipen) 0.3 MG/0.3ML injection syringe Inject 1 Syringe as directed 1 (one) time 11/05/19 24 Active ibuprofen 400 MG tablet Take 400 mg by mouth every 12 (twelve) hours if needed for moderate pain 11/05/19 24 Active famotidine (Pepcid) 20 MG tabletIndications: Gastroesophageal reflux disease, unspecified whether esophagitis present Take 1 tablet (20 mg) by mouth Daily 90 tablet 1 12/23/19 24 Active gabapentin (Neurontin) 100 MG capsuleIndications :Chronic pain in right foot Take 2 capsules (200 mg) by mouth at bedtime 180 capsule 1 12/23/19 24 Active omeprazole (PriLOSEC) [address] capsuleIndications :Gastroesophageal reflux disease, unspecified whether esophagitis present Take 1 capsule (40 mg) by mouth in the morning. Take before meals. 90 capsule 1 12/23/19 24 Active sertraline (Zoloft) 100 MG tabletIndications: Anxiety Take 1 tablet (100 mg) by mouth Daily 90 tablet 1 12/23/19 24 Active sertraline (Zoloft) 50 MG tabletIndications: Anxiety Take 1 tablet (50 mg) by mouth in the evening 90 tablet 1 12/23/19 24 Active Aspirin Low Dose 81 MG EC tablet Take 81 mg by mouth Daily 04/24/19 25 Active alendronate (Fosamax) 70 MG tabletIndications: Osteoporosis, unspecified osteoporosis type, unspecified pathological fracture presence (CMS/HCC) Take 1 tablet (70 mg) by mouth every 7 (seven) days 12 tablet 1 06/25/19 25 025 Active traZODone (Desyrel) 50 MG tabletIndications: Primary insomnia Take 2 tablets (100 mg) by mouth at bedtime May take 1-2 tablets 180 tablet 1 06/25/19 25 025 Active lisinopril 10 MG tabletIndications: Primary hypertension (CMS/HCC) Take 1 tablet (10 mg) by mouth Daily 90 tablet 1 06/30/19 25 025 Active lovastatin (Mevacor) 20 MG tabletIndications: Hyperlipidemia, unspecified hyperlipidemia type (CMS/HCC) Take 1 tablet (20 mg) by mouth at bedtime 90 tablet 1 06/30/19 25 025 Active levothyroxine (Synthroid, Levoxyl) 50 MCG tabletIndications: Postoperative hypothyroidism (CMS/HCC) TAKE 1 TABLET (50 MCG) BY MOUTH IN THE MORNING. TAKE BEFORE MEALS. 30 tablet 1 07/25/19 25 025 Active montelukast (Singulair) 10 MG tabletIndications: Seasonal allergies TAKE 1 TABLET (10 MG) BY MOUTH AT BEDTIME 90 tablet 1 07/25/19 25 025 Active levothyroxine (Synthroid, Levoxyl) 50 MCG tabletIndications: Postoperative hypothyroidism (CMS/HCC) Take 1 tablet (50 mcg) by mouth in the morning. Take before meals. 90 tablet 1 12/23/19 24 025 Discontinued montelukast (Singulair) 10 MG tabletIndications: Seasonal allergies Take 1 tablet (10 mg) by mouth at bedtime 90 tablet 1 12/23/19 24 025 Discontinued Active Problems Problem Noted Date Diagnosed Date Thumb pain, right 05/07/2024 Assessment & Plan (05/07/2024 12:11 PM EST): Add meloxicam Check xray Colon cancer screening 05/07/2024 Assessment & Plan (05/07/2024 12:12 PM EST): Colon cancer screening options were discussed with patient, as well as why colon cancer screening is indicated. Options are Colonoscopy: direct visualization, every 10 years (unless indicated more frequently), risks and benefits were discussed Cologuard: every 3 years, risks and benefits were discussed , contraindications were discussed (family hx of colon cancer, colon polyps) Patient has elected to: declines all options at this point Encounter for initial annual wellness visit (AWV) in Medicare patient 05/05/2024 Assessment & Plan (05/07/2024 6:55 AM EST): Reviewed Ht/Wt/BMI Recommend eye exam yearly Recommend dental exams twice a year Balance work/leisure activities Exercises is recommended most days of the week (appropriate as chronic conditions allow) Follow up yearly and prn Anxiety and depression 09/04/2023 Assessment & Plan (05/07/2024 12:11 PM EST): Stressors with home life Current meds: sertaline, trazodone PHQ 9=0 FROILAN 7=0 Assessment & Plan (09/04/2023 10:10 AM EDT): Stressors with significant other, however she does not feel meds need changed Offered cousneling, pt will think about this Neoplasm of uncertain behavior 09/04/2023 Assessment & Plan (09/04/2023 10:08 AM EDT): Scaly skin lesion to right ear, will refer to Derm Encounter for screening mamm ogram for malignant neoplasm of breast 06/05/2023 Rash and nonspecific skin eruption 06/05/2023 Assessment & Plan (06/05/2023 9:54 AM EDT): Trial OTC dandruff shampoo for next few weeks to see if better If not call office and will refer to dermatology Primary insomnia 05/08/2023 Assessment & Plan (05/07/2024 6:54 AM EST): Continue trazdone prn Assessment & Plan (12/23/2023 2:08 PM EDT): Continue trazdone prn Carpal tunnel syndrome 05/02/2023 Asymptomatic microscopic hematuria 05/02/2023 Trigger finger, right middle finger 05/02/2023 Leg cramps 05/02/2023 Arthritis 05/02/2023 Hypothyroidism 05/02/2023 Assessment & Plan (05/07/2024 6:55 AM EST): Current med: levothyroxine Check labs yearly, prn dose changes, or changes in symptoms Assessment & Plan (09/04/2023 10:06 AM EDT): No changes to med or dose Assessment & Plan (06/05/2023 9:39 AM EDT): No changes to med or dose Anemia 05/02/2023 Fatigue 05/02/2023 Body mass index (BMI) 19.9 or less, adult 2023 Blepharitis of upper eyelids of both eyes 2023 Assessment & Plan (05/02/2023 1:52 PM EST): Reports is about 90% better than the last 2 weeks Can continue OTC treatment no s/s active infection at this time Seasonal allergies 04/10/2023 Assessment & Plan (12/23/2023 2:09 PM EDT): Continue current meds Assessment & Plan (06/05/2023 9:38 AM EDT): No changes to current meds Assessment & Plan (05/02/2023 1:51 PM EST): Suspect eye lid irritation is allergy driven She does report she has used OTC dandruf shampoo, as well as 1/2 and 1/2 baby shampoo and water She is also encouraged if this returns to restart her allergy eye drops as well Former tobacco use 04/01/2023 Primary hypertension 04/01/2023 Assessment & Plan (05/07/2024 6:54 AM EST): Please check blood pressure daily and record DASH diet Limit caffeine Take medication as directed Contact office if chest pain, pressure, dizziness, shortness of breath, swelling legs Recommend slow position changes Current meds: lisinopril Assessment & Plan (12/23/2023 2:08 PM EDT): No changes to blood pressure meds or dose Assessment & Plan (09/04/2023 10:06 AM EDT): No changes to blood pressure meds or dose Assessment & Plan (06/05/2023 9:39 AM EDT): No changes to blood pressure meds or dose Well woman exam with routine gynecological exam 04/01/2023 Assessment & Plan (04/01/2023 11:13 AM EST): Fu per PAP indications Monthly BSE Reviewed Ht/Wt/BMI Recommend eye exam yearly Recommend dental exams twice a year Balance work/leisure activities Exercises is recommended most days of the week (appropriate as chronic conditions allow) Follow up yearly and prn Chronic pain in right foot 03/07/2023 Gastroesophageal reflux 03/07/2023 Assessment & Plan (05/07/2024 6:54 AM EST): Recommendations: freq small meals, nothing to eat or drink at least 2 hours prior to bed, limit caffeine, alcohol, as well as spicy foods Meds to limit or avoid if possible: NSAIDS Elevate HOB if possible Current med: omeprazole Assessment & Plan (12/23/2023 2:08 PM EDT): Continue current meds Assessment & Plan (06/05/2023 9:39 AM EDT): Continue current meds Onychomycosis 03/05/2023 Assessment & Plan (03/05/2023 1:46 PM EST): Will restart medication Bee sting-induced anaphylaxis 03/05/2023 Closed dislocation of tarsometatarsal joint 11/02 Thyroid nodule 11/13/2022 Hyperlipidemia 11/13/2022 Assessment & Plan (05/07/2024 6:55 AM EST): Current med: lovastatin Check labs yearly and prn dose changes Try to follow low fat diet Assessment & Plan (12/23/2023 2:09 PM EDT): Continue statin Paresthesia of hand, bilateral 11/13/2022 Osteoporosis 11/13/2022 Assessment & Plan (05/07/2024 6:55 AM EST): Current med: alendronate DEXA scan: last one on file 05/23/2021: osteoporosis, spine -1.1, left femur -3.4 Assessment & Plan (12/23/2023 2:08 PM EDT): Cont fosamax Lymphopenia 05/18/2022 Resolved Problems Problem Noted Date Diagnosed Date Resolved Date Post-operative hypothyroidism 05/02/2023 05/05/2024 Postoperative hypothyroidism 11/13/2022 05/05/2024 Assessment & Plan (12/23/2023 2:08 PM EDT): Cont current meds Hypertension 11/13/2022 06/05/2023 Depression 11/13/2022 09/04/2023 Assessment & Plan (09/04/2023 10:06 AM EDT): >>ASSESSMENT AND PLAN FOR ANXIETY WRITTEN ON 06/05/2023 9:38 AM BY MARY CHUN NP Stable on current meds Assessment & Plan (09/04/2023 10:06 AM EDT): >>ASSESSMENT AND PLAN FOR DEPRESSION (CMS/HCC) WRITTEN ON 03/05/2023 1:54 PM BY MARY CHUN NP Offered to change dose of meds, declines at this time >>ASSESSMENT AND PLAN FOR ANXIETY WRITTEN ON 03/05/2023 1:54 PM BY MARY CHUN NP No changes in meds Encounters Date Type Department Care Team Description 08/03/2024 Clinisync Result Encounter [facility] External Department Unsolicited Mary Chun NP 07/23/2024 Refill [facility] [address] [place] [address] Mary Chun NP Postoperative hypothyroidism (CMS/HCC); Seasonal allergies 06/29/2024 Refill [facility] [address] [place] [address] Mary Chun NP Primary hypertension (CMS/HCC); Hyperlipidemia, unspecified hyperlipidemia type (CMS/HCC) 06/24/2024 Refill [facility] [address] [place] [address] Mary Chun NP Osteoporosis, unspecified osteoporosis type, unspecified pathological fracture presence (CMS/HCC); Primary insomnia from Last 3 Months Family History Medical History Relation Name Comments Cancer Father Cancer Mother Relation Name Status Comments Brother 1 brother Father Mother Sister 1 sister Social History Tobacco Use Types Packs/Day Years Used Date Smoking Tobacco: Former Cigarettes Smokeless Tobacco: Never Tobacco Cessation:Counseling Given: Not Answered Alcohol Use Standard Drinks/Week Comments Not Currently [...] 12/03/2023 How often do you attend chur ch or pentecostalism services? 1 to 4 times per year 12/03/2023 Do you belong to any clubs o r organizations such as yazidi groups, unions, fraternal or athletic groups, or [...] Recorded Patient Health Questionnaire-2 Score 0 05/07/2024 [facility] - Occupational Stress [...] place to sleep or slept in a senior living (including now)? No 03/05/2023 Housing Stability Vital Sign Answer Joseph e Recorded In the last 12 months, was t here a time when you were not able to pay the mortgage or rent on time? No 12/03/2023 Number of Times Moved in the Last Year Not on fi le 12/03/2023 At any time in the past 12 m [facility], were you homeless or living in a senior living (including now)? No 12/03/2023 Comments Unknown Sex and Gender Information Value Date Recorded Sex Assigned at Not on file Legal Sex Female 7:36 PM EDT Gender Identity Not on file Sexual Orientation Not on file Last Filed Vital Signs Vital Sign Reading Time Taken Comments Blood Pressure 128/82 05/07/2024 11:19 AM EST Pulse 93 05/07/2024 11:19 AM EST Temperature 36.9 C (98.5 F) 05/07/2024 11:19 AM EST Respiratory Rate 18 05/07/2024 11:19 AM EST Oxygen Saturation 96% 05/07/2024 11:19 AM EST Inhaled Oxygen Concentration - - Weight 52.9 kg (116 lb 9.6 oz) 05/07/2024 11:19 AM EST Height 160 cm (5' 3 ) 05/07/2024 11:19 AM EST Body Mass Index 20.65 05/07/2024 11:19 AM EST Plan of Treatment Upcoming Encounters Date Type Department Care Team (Late st Contact Info) Description 08/11/2024 9:20 AM EDT Office Visit [facility] [address] [place] [address] Mary Chun NP [address] [place] [phone] 05/11/2025 10:00 AM EDT Office Visit [facility] [address] [place] [address] Mary Chun NP [address] [place] [phone] Health Maintenance Due Date Last Done Comments CT Colonography 1959 Colonoscopy 1959 FIT-DNA 1959 FIT 1959 FOBT 1960 Sigmoidoscopy 1959 HPV/Cotest 1989 Mammogram 08/02/2023 08/01/2022 Influenza Vaccine (Season Ended) 2024 Colorectal Cancer Screening 05/07/2025 Postponed from 1960 (Patient Refused) Medicare Annual Wellness (AWV) 05/07/2025 05/07/2024, 04/01/2023 Pneumococcal Vaccine: 65+ Years (1 of - PCV) 05/07/2025 Postponed from 04/04 (Patient Refused) Cervical Cancer Screening 04/01/2026 Pap Smear 04/01/2026 04/01/2023, 10/23/2018 Procedures Procedure Name Priority Date/Time Associated Diagnosis Comments XR HAND 3+ VIEWS RIGHT 08/03/2024 12:23 PM EDT from Last 3 Months Results * XR hand 3+ views right (08/03/2024 12:23 PM EDT) Anatomical Region Laterality Modality Upper Extremities, Hand Right [facility] 08/03/2024 12:2 3 PM EDT Narrative 08/03/2024 12:26 [place] [address] XRay Report Signed Patient: ECTOR HUTCHISON MR#: [id number] : 1960 Acct:[id number] Age/Sex: 64 / F ADM Date: 08/03/24 Loc: LAB Attending Dr: Mary Chun NP Ordering Physician: Mary Chun NP Date of Service: 08/03/24 Procedure(s): XR hand RT min 3V Accession Number(s): [id number] cc: Mary Chun NP The [address] [address] Patient Name: ECTOR HUTCHISON MRN: [id number] date: 1960 Sex: F Assigned Patient Location: LAB Current Patient Location: LAB Accession/Order Number: [id number] Exam Date: 08/03/2024 12:20 Report Date: 08/03/2024 [...] Lee M.D. 08/03/2024 12:23 PM Dictation Location: [place] [address] Electronically authenticated by: [id number] Y Date: 08/03/2024 12:23 Dictated By: Frances Lee M.D. Signed By: 08/03/24 1226 DD/ 1223 TD/TT: Apprentice Painter Neckties: Procedure Note Radiology, Radiologist, MD - 08/03/2024 [place] [address] XRay Report Signed Patient: ECTOR HUTCHISON SMR#: [id number] : 1960Acct:[id number] Age/Sex: 64 / FADM Date: 08/03/24 Loc: LAB Attending Dr: Mary Chun NP Ordering Physician: Mary Chun NP Date of Service: 08/03/24 Procedure(s): XR hand RT min 3V Accession Number(s): [id number] cc: Mary Chun NP [place] [id number] Patient Name: ECTOR HUTCHISON MRN: [id number] date: 1960 Sex: F Assigned Patient Location: LAB Current Patient Location: LAB Accession/Order Number: [id number] Exam Date: 08/03/2024 12:20 Report Date: 08/03/2024 [...] Lee M.D. 08/03/2024 12:23 PM Dictation Location: [place] [address] Electronically authenticated by: [id number] Y Date: 2:23 Dictated By: Frances Lee M.D. Signed By:08/03/24 1226 DD/ 1223 TD/TT: Apprentice Painter Neckties: Mray Chun [facility] XR PROCEDURES Final Result from Last 3 Months Insurance MEDICARE Care Teams Compliance Testing Analyst Relationship Specialty Start Date End Date Xu Gentile MD [address] [place] [phone] PCP - General Family Medicine 04/01/23 Mary Chun NP [address] [place] [phone] Nurse Practitioner Family Medicine 05/07/24
--- OUTSIDE RECORDS SUMMARY | 2024-08-10 08:27 | XMS_ITS | Clinical Summary ---
Author Organization [facility] Address [address] [place], [place] [id number] Care Team Providers Care Accounting/Finance Tutor Name Role Phone Mary Chun Aislinn PEREZ Primary Care Provider [phone] Allergies Active Allergy Reactions Criticality Noted Date Comments Atorvastatin Rash 07/24/2014 Medications levothyroxine sodium (LEVOTHYROXINE ORAL) Take by mouth. Active famotidine (PEPCID) 20 mg tablet Take 20 mg by mouth twice daily. Active omeprazole (PRILOSEC) 40 mg capsule Take 40 mg by mouth once daily. Active mv-min/iron/folic /calcium/vitK (WOMEN'S MULTIVITAMIN ORAL) Take by mouth. Active ASCORBATE CALCIUM ORAL Take by mouth. Active cycloSPORINE (RESTASIS) 0.05 % ophthalmic emulsion 1 Drop twice daily. Active fluticasone propionate (FLONASE NASAL) Use in the nose. Active aspirin, enteric coated (ASPIRIN, ENTERIC COATED) 81 mg EC tablet Take 81 mg by mouth once daily. Active alendronate (FOSAMAX) 70 mg tablet Take 70 mg by mouth one time a week. In AM with cup of water on empty stomach. Nothing else by mouth and stay upright for 30 min. Active traZODone (DESYREL) 50 mg tablet Take 50 mg by mouth daily at bedtime. Active gabapentin (NEURONTIN) 100 mg capsule Take 100 mg by mouth three times daily. Active lovastatin (MEVACOR) 20 mg tablet Take 20 mg by mouth daily at bedtime. Active lisinopril (ZESTRIL, PRINIVIL) 10 mg tablet Take 10 mg by mouth once daily. Active sertraline (ZOLOFT) 100 mg tablet Take 100 mg by mouth once daily. Active EPINEPHrine Base (SYMJEPI) 0.3 mg/0.3 mL syrg Inject intramuscula rly. Active Family History Relation Status Comments Father Mother Social History Tobacco Use Types Packs/Day Years Used Date Smoking Tobacco: Former Cigarettes Passive Smoke Exposure: Past Smokeless Tobacco: Never Tobacco Cessation:Counseling Given: Not Answered Alcohol Use Standard Drinks/Week Comments Not Currently 0 (1 standard drink = 0.6 oz pur e alcohol) Comments No Sex and Gender Information Value Date Recorded Sex Assigned at Not on file Legal Sex Female 9:01 AM EDT Gender Identity Not on file Sexual Orientation Not on file Last Filed Vital Signs Vital Sign Reading Time Taken Comments Blood Pressure 162/80 01/01/2022 10:54 AM EDT Pulse 88 01/01/2022 10:54 AM EDT Temperature 36.4 C (97.5 F) 01/01/2022 10:54 AM EDT Respiratory Rate 18 01/01/2022 10:54 AM EDT Oxygen Saturation 97% 01/01/2022 10:54 AM EDT Inhaled Oxygen Concentration - - Weight 43 kg (94 lb 12.8 oz) 01/01/2022 10:54 AM EDT Height 162.6 cm (5' 4 ) 01/01/2022 10:54 AM EDT Body Mass Index 16.27 01/01/2022 10:54 AM EDT Plan of Treatment Health Maintenance Due Date Last Done Comments Anxiety Screening 1977 Depression Screening 1977 HIV Screening 1977 Hepatitis C Screening 1977 DTaP,Tdap,Td Vaccine (1 - Tdap) [address] Colonography 2004 Cologuard (FIT-DNA) 2004 Colonoscopy 2004 Colorectal Cancer Screening 2004 Diabetes Screening 2004 Fecal Occult Blood 2004 Lipid Screening 2004 Sigmoidoscopy 2004 Pneumococcal Vaccine: 50+ (1 of 1 - PCV) 2009 Shingrix Vaccine (1 of 2) 2009 Covid-19 Vaccine ( - season) 2023 Advance Directive Discussion 2024 Bone Density Screening 2024 Influenza Vaccine (Season Ended) 2024 RSV Vaccine (1 - 1-dose 75+ series) 2034 Insurance [employer] [place] * Guarantor: Daphne Jernigan Account Type Relation to Patient Date of Phone Billing Address Self Pay Self 1960 [facility] [address] Care Teams Accounting/Finance Tutor Relationship Specialty Start Date End Date Mary Chun, SENIOR WAREHOUSE CLERK PCP - General Family Medicine 05/11/14
--- OUTSIDE RECORDS SUMMARY | 2024-08-10 08:27 | XMS_ITS | Encounter Summary ---
Author Organization [facility] Address [address] [place] [address] Care Team Providers Care Licensed Embalmer Name Role Phone Mary Chun CNP Primary Care Provider [phone] Source Comments In the event this information is protected by the Federal Confidentiality of Alcohol and Drug AbusePatient Records regulations: The Federal rules restrict any use of the information to criminally investigate or prosecute any alcohol or drug abuse patient.[facility] Encounter Details Date Type Department Care Team (Latest Contact Info) Description 12/26/2021 H&P External-NonCCF Provider, External, PA-C Do not enter address information under generic External Provider. Social History Tobacco Use Types Packs/Day Years Used Date Smoking Tobacco: Never Assessed Comments Unknown Sex and Gender Information Value Date Recorded Sex Assigned at Not on file Legal Sex Female 9:01 AM EDT Gender Identity Not on file Sexual Orientation Not on file documented as of this encounter Plan of Treatment Not on file documented as of this encounter Visit Diagnoses Not on filedocumented in this encounter Care Teams Licensed Embalmer Relationship Specialty Start Date End Date Mary Chun CNP PCP - General Family Medicine 05/11/14 documented as of this encounter
--- OUTSIDE RECORDS SUMMARY | 2024-08-10 08:27 | XMS_ITS | Encounter Summary ---
Author Organization [facility] Address [address] [place] [address] Care Team Providers Care String Studies Director Name Role Phone Xu Gentile MD Primary Care Provider [phone] Xu Gentile MD Primary Care Provider [phone] Raquel Tabor MD Unavailable [phone] Mary Chun NP Unavailable [phone] Encounter Details Date Type Department Care Team (Late st Contact Info) Description 03/03/2023 [facility] [address] [place] [address] Mary Chun, OLYA [address] [place] [address] Social History Tobacco Use Types Packs/Day Years Used Date Smoking Tobacco: Former Cigarettes Smokeless Tobacco: Never Tobacco Cessation:Counseling Given: Not Answered Alcohol Use Standard Drinks/Week Comments Not Currently 0 (1 standard drink = 0.6 oz pur e alcohol) caffeine 1-2 cups per day Humiliation, Afraid, Rape, and Kick questionnair e [...] family, friends, or neighbors? Twice a week 03/05/19 How often do you get togethe r with friends or relatives? Twice a week 03/05/2023 How often do you attend chur ch or islam services? 1 to 4 times per year 03/05/2023 Do you belong to any clubs o r organizations such as baptism groups, unions, fraternal or athletic groups, or school groups? Yes 03/05/2023 How often do you attend meet ings of the clubs or organizations you belong to? 1 to 4 times per year 03/05/2023 Are you , , di vorced, , never , or living with a partner? Patient declined 03/05/2023 AUDIT-C Answer Date Recorded Q1: How often do you have a drink containing alc ohol? Monthly or less 03/05/2023 Q2: How many drinks containi ng alcohol do you have on a typical day when you are drinking? 1 or 2 03/05/2023 Q3: How often do you have si x or more drinks on one occasion? Less than monthly 03/05/2023 Overall Financial Resource Strain (CARDIA) Answe r Date Recorded How hard is it for you to pa y for the very basics like food, housing, medical care, and heating? Not hard at all 03/05/2023 PHQ-2 Answer Date Recorded Patient Health Questionnaire-2 Score 0 03/05/2023 [facility] [place] [facility] - Occupational Stress Questionnaire Answer Date Recorded Do you feel stress - tense, restless, nervous, or anxious, or unable to sleep at night because your mind is troubled all the time - these days? Only a little 03/05/2023 Exercise Vital Sign Answer Date Recorde d On average, how many days pe r week do you engage in moderate to strenuous exercise (like a brisk walk)? 3 days 03/05/2023 On average, how many minutes do you engage in exercise at this level? 30 min 03/05/2023 Hunger Vital Sign Answer Date Recorded Within the past 12 months, y ou worried that your food would run out before you got the money to buy more. Never true 03/05/19 24 Within the past 12 months, t he food you bought just didn't last and you didn't have money to get more. Never true 03/05/2023 PRAPARE - Transportation Answer Date Re corded In the past 12 months, has l ack of transportation kept you from medical appointments or from getting medications? No 04/2023 In the past 12 months, has l ack of transportation kept you from meetings, work, or from getting things needed for daily living? No 03/05/2023 Housing Stability Vital Sign Answer [...] place to sleep or slept in a snf (including now)? No 03/05/2023 Comments Unknown Sex and Gender Information Value Date Recorded Sex Assigned at Not on file Legal Sex Female 7:36 PM EDT Gender Identity Not on file Sexual Orientation Not on file documented as of this encounter Functional Status * Audit-C Score Answer Date of Assessment Author 2 03/05/2023 1:24 PM CAROL MYRICK * Question Answer Date of Assessment Author Q1: How often do you have a drink containing alcohol? Monthly or less 03/05/2023 1:24 PM LATRICE RODRIGUEZ Q2: How many drinks containing alcohol do you have on a typical day when you are drinking? 1 or 2 03/05/2023 1:24 PM LATRICE RODRIGUEZ Q3: How often do you have six or more drinks on one occasion? Less than monthly 03/05/2023 1:24 PM LATRICE RODRIGUEZ * Over the past 2 weeks, how often have you been bothered by any of the following problems? Question Answer Date of Assessment Author Little interest or pleasure in doing things Not at all 03/05/2023 1:25 PM DUARTE FAJARDO LATRICEANKUR VALENTIN Feeling down, depressed, or hopeless Not at all 03/05/2023 1:25 PM LATRICE RODRIGUEZ Patient Health Questionnaire -2 Score 0 03/05/2023 1:25 PM LATRICE RODRIGUEZ * If you checked off any problems on this questionnaire so far, Question Answer Date of Assessment Author How difficult have these problems made it for you to do your work, take care of things at home, or get along with other people? Not difficult at all 03/05/2023 1:25 PM DUARTE NEREIDAELISA CHANTE MANNY documented as of this encounter Plan of Treatment Upcoming Encounters Date Type Department Care Team (Late st Contact Info) Description 08/11/2024 9:20 AM EDT Office Visit [facility] [address] [place] [address] Mary Chun, BACTERIOLOGIST FOOD [address] [place] [phone] 05/11/2025 10:00 AM EDT Office Visit [facility] [address] [place] [phone] Mary Chun, BACTERIOLOGIST FOOD [address] [place] [phone] documented as of this encounter Visit Diagnoses Not on filedocumented in this encounter Care Teams String Studies Director Relationship Specialty Start Date End Date Xu Gentile MD PCP - General Family Medicine 08/31/22 03/31/23 Xu Gentile MD [address] [place] [phone] PCP - General Family Medicine 04/01/23 Raquel Tabor MD [address] [place] [address] PCP - [facility] 06/03/23 09/01/23 Mary Chun NP [address] [place] [address] Nurse Practitioner Family Medicine 05/07/24 documented as of this encounter
--- OUTSIDE RECORDS SUMMARY | 2024-08-10 08:27 | XMS_ITS | Clinical Summary ---
Author Organization [facility] Address [id number] [place] [address] Care Team Providers Care Diet Assistant Name Role Phone Unavailable Primary Care Provider Unavailabl e Allergies Active Allergy Reactions Criticality Noted Date Comments Bee Venom Protein (Honey Bee) Anaphylaxis High 05/18 Atorvastatin Palpitations Low 05/18/2022 Medications ASCORBATE [id number] CETIN ORAL Take by mouth. Active levothyroxine sodium (SYNTHROID ORAL) Take by mouth. Active sertraline (ZOLOFT) 100 mg tablet in the morning and at bedtime. Active alendronate (FOSAMAX) 70 mg tablet 1 tablet (70 mg total) once a week. Active ALPRAZolam (XANAX) 0.5 mg tablet 1 tablet (0.5 mg total). Prior to MRI 05/15/2022 Active aspirin 81 mg 1 tablet (81 mg total). Active EPINEPHrine (EPIPEN 2-IVONE) 0.3 mg/0.3 mL auto-injector once as needed. Active famotidine (PEPCID) 20 mg tablet daily. Active gabapentin (NEURONTIN) 100 mg capsule 1 capsule (100 mg total) daily as needed. 04/25/2022 Active lisinopriL (PRINIVIL,ZESTR IL) 10 mg tablet 1 tablet (10 mg total) in the morning. Active loratadine-pseu doephedrine (CLARITIN-D 12 hour) 5-120 mg tablet extended release 12 hr as needed. Activ e traZODone (DESYREL) 50 mg tablet 1 tablet (50 mg total) nightly as needed. Active ibuprofen (ADVIL,MOTRIN) 200 mg tablet as needed. Activ e pravastatin sodium (PRAVASTATIN ORAL) Take by mouth. Active Active Problems Problem Noted Date Diagnosed Date Lymphopenia 05/18/2022 Social History Tobacco Use Types Packs/Day Years Used Date Smoking Tobacco: Former Cigarettes Q uit: 1998 Smokeless Tobacco: Never Tobacco Cessation:Counseling Given: Not Answered Alcohol Use Standard Drinks/Week Comments Yes 1 (1 standard drink = 0.6 oz pur e alcohol) every now and then Hunger Screening Answer Date Recorded Within the past 12 months we worried whether our food would run out before we got money to buy more. Never True 05/18/2022 Within the past 12 months th e food we bought just didn't last and we didn't have money to get more. Never True 05/18/2022 Comments Unknown Sex and Gender Information Value Date Recorded Sex Assigned at Not on file Legal Sex Female 3:22 PM EST Gender Identity Not on file Sexual Orientation Not on file Last Filed Vital Signs Vital Sign Reading Time Taken Comments Blood Pressure 154/86 05/18/2022 11:35 AM EDT Pulse 102 05/18/2022 11:35 AM EDT Temperature 36.7 C (98.1 F) 05/18/2022 11:35 AM EDT Respiratory Rate 18 05/18/2022 11:3 5 AM EDT Oxygen Saturation 99% 05/18/2022 11: 35 AM EDT Inhaled Oxygen Concentration - - Weight 47.1 kg (103 lb 12.8 oz) 023 11:35 AM EDT Height 162.6 cm (5' 4 ) 05/18/2022 11:3 5 AM EDT Body Mass Index 17.82 05/18/2022 11:35 AM EDT Plan of Treatment Health Maintenance Due Date Last Done Comments Depression Screening 1971 Tobacco Screening 1971 DTaP,Tdap and Td Vaccines (1 - Tdap) 1978 Zoster (Shingles) Vaccine (1 of 2) 2009 Adult BMI Screening 05/19/2023 05/18/2022 Fall Risk Screening 2024 Influenza Vaccine 11/02/2024 Medical Devices Not on file Insurance MEDICAID
--- OUTSIDE RECORDS SUMMARY | 2024-08-10 08:36 | XMS_ITS | CCD ---
Author Organization [facility] Care Team Providers Care Scarifier Operator Name Role Phone Aichholz ANANasraasim Tao Primary Care Provider Haylie Mueller Unavailable Adithya Boykin Unavailable Keara Silva Unavailable Mary Barr Unavailable AICHHOLZ, LINK CUTTER MARY Admitting Unavailable AICHHOLZ, LINK CUTTER MARY Attending Unavailable AICHHOLZ, LINK CUTTER MARY Consulting Unavailable AICHHOLZ, LINK CUTTER MARY Primary Care Unavailable AICHHOLZ, LINK CUTTER MARY Admitting Unavailable AICHHOLZ, LINK CUTTER MARY Primary Care Unavailable AICHHOLZ, LINK CUTTER MARY Attending Unavailable AICHHOLZ, LINK CUTTER MARY Consulting Unavailable DR ELISABETH MCDONALD Admitting Unavailable AICHHOLZ, LINK CUTTER MARY Primary Care Unavailable DR ELISABETH MCDONALD Attending Unavailable DR ELISABETH MCDONALD Consulting Unavailable DR ENDY PRADHAN Consulting Unavailable AICHHOLZ, LINK CUTTER MARY Primary Care Unavailable AICHHOLZ, LINK CUTTER MARY Admitting Unavailable AICHHOLZ, LINK CUTTER MARY Attending Unavailable AICHHOLZ, LINK CUTTER MARY Consulting Unavailable AICHHOLZ, LINK CUTTER MARY Admitting Unavailable AICHHOLZ, LINK CUTTER MARY Attending Unavailable AICHHOLZ, LINK CUTTER MARY Consulting Unavailable AICHHOLZ, LINK CUTTER MARY Primary Care Unavailable CROW HERNANDEZ Admitting Unavailable AICHHOLZ, LINK CUTTER MARY Primary Care Unavailable CROW HERNANDEZ Attending Unavailable CROW HERNANDEZ Consulting Unavailable CROW HERNANDEZ Admitting Unavailable CROW HERNANDEZ Attending Unavailable CROW HERNANDEZ Consulting Unavailable AICHHOLZ, LINK CUTTER MARY Primary Care Unavailable LAMONT FERRO Consulting Unavailable DR ENDY PRADHAN Consulting Unavailable HAYLIE MUELLER Admitting Unavailable HAYLIE MUELLER Attending Unavailable ANA CHUN Primary Care Unavailable HAYLIE MUELLER Consulting Unavailable Adiel PEREZ, Mary Tao Primary Care Provider BRANDON ARSHAD Attending Unavailable MARY CHUN Referring Unavailable MARY CHUN Primary Care Unavailable Xu Gentile MD Primary Care Provider Adiel MEDICATION TECHNICIAN, Mary Unavailable MARY CHUN Attending Unavailable MARY CHUN Attending Unavailable MARY CHUN Attending Unavailable MARY CHUN Attending Unavailable Allergies Allergy Classification Reported Allergen(s) Allergy Type Date of Onset Reaction(s) Facility (7 sources) atorvastatin Drug Allergy 07-25-19 15 Rash [facility] (3 sources) Bee Sting Drug allergy Unknown [facility] Other (1 source) bee venom Drug allergy (disorder) 02-03-[address] [facility] (1 source) Dextroamphetamine Drug Allergy 07-25-[address] [facility] (13 sources) atorvastatin Drug Allergy 11-14-19 23 Unknown [facility] (13 sources) Honey bee venom Allergy to substance 11-14-19 23 Unknown [facility] (13 sources) terbinafine Drug Allergy 11-14-19 23 Rash [facility] (13 sources) Tolnaftate Drug Allergy 11-14-[address] [facility] Medications Current Medications Medication Drug Class(es) Dates Sig (Normalized) Sig (Original) [id number] 200 actuat albuterol 0.09 mg/actuat metered dose inhaler (2 sources) beta2-Adrenergic Agonist Start: 06-01-2022 take 2 puff(s) by inhalation four times daily as needed Albuterol Sulfate HFA 108 (90 Base) MCG/ACT 2 puffs Inhalation 4 times a day prn May, Active alendronic acid 70 mg oral tablet (20 sources) Bisphosphonate Start: 07-10-2023 End: 09-16-2024 alendronate (Fosamax) 70 MG tablet Indications: Osteoporosis, unspecified osteoporosis type, unspecified pathological fracture presence ([facility]) Take 1 tablet (70 mg) by mouth every 7 (seven) days 12 tablet 1 06/24/2024 09/16/2024 Active alendronate (Fos amax) 70 MG tablet Take 70 mg by [...] aspirin 81 mg delayed release oral tablet (20 sources) Platelet Aggregation Inhibitor, Nonsteroidal Anti-inflammatory Drug Start: 04-24-2024 take 1 tablet by mouth once daily Aspirin Low Dose 81 MG EC tablet Take 81 mg by mouth Daily 04/24/2024 Active Start: 11-29-2023 End: 12-29-2023 take 1 tablet by mouth once daily aspirin (Aspirin Low Dose) 81 MG EC tablet Indications: Primary hypertension (CMS/HCC) , Mixed hyperlipidemia (CMS/HCC) Take 1 tablet (81 mg) by mouth Daily 30 tablet 11 11/29/2023 12/29/2023 Active Aspir-Low 81 MG Oral for 30 Active Comment on above: Take 81 mg by mouth once daily. Calcium Carbonate (13 sources) take 1 tablet by mouth in the morning Calcium Carbonate (CALCIUM 500 PO) Take 1 tablet by mouth in the morning. Active take 1 tablet by mouth in the mo rning Calcium Carbonate (CALCIUM 500 PO) Take 1 tablet by mouth in the morning. 0 Active cetirizine hydrochloride 10 mg oral tablet (1 source) Histamine-1 Receptor Antagonist Start: 06-23-2022 take 1 tablet by mouth every twenty-four hours Cetirizine HCl 10 MG 1 tablet Orally Once a day for 14 days Jun, Active [id number] 0.3 ml EPINEPHrine 1 mg/ml auto-injector (18 sources) alpha-Adrenergic Agonist, beta-Adrenergic Agonist, Catecholamine Start: 11-05-2023 EPINEPHrine (Epipen) 0.3 MG/0.3ML injection syringe Inject 1 Syringe as directed 1 (one) time 11/05/2023 Active Start: 07-10-2023 End: 12-23-2023 inject 0.3 mg by subcutaneous injection once EPINEPHrine (Symjepi) 0.3 MG/0.3ML injection Indications: Anaphylactic reaction to bee sting, accidental or unintentional, sequela Inject 0.3 mg under the skin 1 (one) time dose, may repeat again in 5-15 minutes if needed 0.3 mL 1 07/10/2023 12/23/2023 Discontinued (Therapy completed) Start: 03-05-2023 inject 0.3 mg by sub cutaneous injection once EPINEPHrine (Symjepi) 0.3 MG/0.3ML injection Indications: Anaphylactic reaction to bee sting, accidental or unintentional, sequela Inject 0.3 mg under the skin 1 (one) time dose, may repeat again in 5-15 minutes if needed 0.3 mL 1 03/05/2023 Active EPINEPHrine Base (SYMJEPI) 0.3 mg/0.3 mL syrg Inject intramuscularly. 0 Active Comment on above: Inject intramuscular ly. famotidine 20 mg oral tablet (17 sources) Histamine-2 Receptor Antagonist Start: 024 End: 025 take 1 tablet by mouth once daily famotidine (Pepcid) 20 MG tablet Indications: Gastroesophageal reflux disease, unspecified whether esophagitis present Take 1 tablet (20 mg) by mouth Daily 90 tablet 1 12/23/2023 Active Start: 03-07-2023 take 1 tablet by jie th in the morning famotidine (Pepcid) 20 MG tablet Indications: Gastroesophageal reflux disease, unspecified whether esophagitis present Take 1 tablet (20 mg) by mouth in the morning. 30 tablet 5 03/07/2023 Active take 1 tablet by jie th twice daily famotidine (PEPCID) 20 mg tablet Take 20 mg by mouth twice daily. 0 Active Comment on above: Take 20 mg by mouth twice daily. Fish Oils (11 sources) take 1 capsule by mouth once daily fish oil ([place]-3) 500 MG capsule Take 500 mg by mouth Daily Active gabapentin 100 mg oral capsule (19 sources) Anti-epileptic Agent Start: 07-10-2023 End: 03-22-2024 take 2 capsules by mouth at bedtime gabapentin (Neurontin) 100 MG capsule Indications: Chronic pain in right foot Take 2 capsules (200 mg) by mouth at bedtime 180 capsule 1 12/23/2023 Active Start: 03-07-2023 take 2 capsules by m outh at bedtime gabapentin (Neurontin) 100 MG capsule Indications: Chronic pain in right foot Take 2 capsules (200 mg) by mouth at bedtime 60 capsule 5 03/07/2023 Active take 1 capsule by mo ut at bedtime gabapentin (Neurontin) 300 MG capsule Take 300 mg by mouth at bedtime. 0 Active take 1 capsule by mo uth three times daily gabapentin (NEURONTIN) 100 mg capsule Take 100 mg by mouth three times daily. 0 Active Comment on above: Take 100 mg by mouth three times daily. ibuprofen 400 mg oral tablet (15 sources) Nonsteroidal Anti-inflammatory Drug Start: 11-05-2023 ibuprofen 400 MG tablet Take 400 mg by mouth every 12 (twelve) hours if needed for moderate pain 11/05/2023 Active End: 12-23-2023 take 1 tablet by mouth every six hours ibuprofen 200 MG tablet Take 200 mg by mouth every 6 (six) hours. 12/23/2023 Discontinued (Therapy completed) levothyroxine sodium 0.05 mg oral tablet (20 sources) l-Thyroxine Start: 07-24-2024 End: 10-22-2024 take 1 tablet by mouth before mealtime levothyroxine (Synthroid, Levoxyl) 50 MCG tablet Indications: Postoperative hypothyroidism (CMS/HCC) TAKE 1 TABLET (50 MCG) BY MOUTH IN THE MORNING. TAKE BEFORE MEALS. 30 tablet 1 07/24/2024 10/22/2024 Active Start: 04-10-2023 End: 03-22-2024 take 1 tablet by mouth before mealtime levothyroxine (Synthroid, Levoxyl) 50 MCG tablet Indications: Postoperative hypothyroidism (CMS/HCC) Take 1 tablet (50 mcg) by mouth in the morning. Take before meals. 90 tablet 1 12/23/2023 Active take 2 tablets by mo uth before mealtime levothyroxine (Synthroid, Levoxyl) 25 MCG tablet Take 50 mcg by mouth in the morning. Take before meals. 0 Active take 1 tablet by jie once daily in the morning Levothyroxine Sodium 25 MCG 1 tablet in the morning on an empty stomach Orally Once a day Active levothyroxine so dium (LEVOTHYROXINE ORAL) Take by mouth. 0 Active Comment on above: Take by mouth. lisinopril 10 mg oral tablet (20 sources) Angiotensin Converting Enzyme Inhibitor Start: End: take 1 tablet by mouth once daily lisinopril 10 MG tablet Indications: Primary hypertension (CMS/HCC) Take 1 tablet (10 mg) by mouth Daily 90 tablet 1 06/29/2024 09/27/2024 Active Start: 03-07-2023 take 1 tablet by jie th in the morning lisinopril 10 MG tablet Indications: Primary hypertension (CMS/HCC) Take 1 tablet (10 mg) by mouth in the morning. 30 tablet 5 03/07/2023 Active take 1 tablet by jie th once daily lisinopril (ZESTRIL, PRINIVIL) 10 mg tablet Take 10 mg by mouth once daily. 0 Active Comment on above: Take 10 mg by mouth once daily. 12 hr loratadine 5 mg / pseudoephedrine sulfate 120 mg extended release oral tablet (13 sources) alpha-Adrenergic Agonist take 1 tablet by mouth once in the morning, then take 1 tablet by mouth every twelve hours at bedtime loratadine-pseudoephed rine ER (Claritin-D 12-hour) 5-120 MG 12 hr tablet Take 1 tablet by mouth in the morning and 1 tablet before bedtime. Active lovastatin 20 mg oral tablet (20 sources) HMG-CoA Reductase Inhibitor Start: 07-10-19 End: 09-28-19 25 take 1 tablet by mouth at bedtime lovastatin (Mevacor) 20 MG tablet Indications: Hyperlipidemia, unspecified hyperlipidemia type (CMS/HCC) Take 1 tablet (20 mg) by mouth at bedtime 90 tablet 1 06/29/2024 09/27/2024 Active Start: 03-07-2023 take 1 tablet by jie th at bedtime lovastatin (Mevacor) 20 MG tablet Indications: Hyperlipidemia, unspecified hyperlipidemia type (CMS/HCC) Take 1 tablet (20 mg) by mouth at bedtime 30 tablet 5 03/07/2023 Active take 1 tablet by jie th once daily at bedtime lovastatin (MEVACOR) 20 mg tablet Take 20 mg by mouth daily at bedtime. 0 Active Comment on above: Take 20 mg by mouth daily at bedtime. meloxicam 7.5 mg oral tablet (2 sources) Nonsteroidal Anti-inflammatory Drug Start: End: take 1 tablet by mouth once daily meloxicam (Mobic) 7.5 MG tablet Indications: Thumb pain, right Take 1 tablet (7.5 mg) by mouth Daily 30 tablet 2 05/07/2024 06/06/2024 Active montelukast 10 mg oral tablet (14 sources) Leukotriene Receptor Antagonist Start: End: take 1 tablet by mouth at bedtime montelukast (Singulair) 10 MG tablet Indications: Seasonal allergies TAKE 1 TABLET (10 MG) BY MOUTH AT BEDTIME 90 tablet 1 07/24/2024 10/22/2024 Active Start: 04-10-2023 End: 03-22-2024 take 1 tablet by mouth at bedtime montelukast (Singulair) 10 MG tablet Indications: Seasonal allergies Take 1 tablet (10 mg) by mouth at bedtime 90 tablet 1 12/23/2023 Active MULTIPLE VITAMIN PO (13 sources) take 1 tablet by jie th in the morning MULTIPLE VITAMIN PO Take 1 tablet by mouth in the morning. Active take 1 tablet by mouth in the mo rning MULTIPLE VITAMIN PO Take 1 tablet by mouth in the morning. 0 Active omeprazole 40 mg delayed release oral capsule (20 sources) Proton Pump Inhibitor Start: 03-07-2023 End: 03-22-2024 take 1 capsule by mouth before mealtime omeprazole (PriLOSEC) [address] capsule Indications: Gastroesophageal reflux disease, unspecified whether esophagitis present Take 1 capsule (40 mg) by mouth in the morning. Take before meals. 90 capsule 1 12/23/2023 Active take 1 capsule by mouth once [...] day for 5 day(s) May, Active sertraline 50 mg oral tablet (20 sources) Serotonin Reuptake Inhibitor Start: 07-10-2023 End: 03-22-2024 take 1 tablet by mouth once daily sertraline (Zoloft) 100 MG tablet Indications: Anxiety Take 1 tablet (100 mg) by mouth Daily 90 tablet 1 12/23/2023 Active Start: 07-10-2023 End: 03-22-2024 take 1 tablet by mouth in the evening sertraline (Zoloft) 50 MG tablet Indications: Anxiety Take 1 tablet (50 mg) by mouth in the evening 90 tablet 1 12/23/2023 Active take 1 tablet by jie th once daily sertraline (Zoloft) 100 MG tablet Take 100 mg by mouth 1 (one) time each day at the same time. 0 Active Comment on above: Take 100 mg by mouth once daily. traZODone hydrochloride 50 mg oral tablet (20 sources) Serotonin Reuptake Inhibitor Start: 07-10-2023 End: 09-22-2024 traZODone (Desyrel) 50 MG tablet Indications: Primary insomnia Take 2 tablets (100 mg) by mouth at bedtime May take 1-2 tablets 180 tablet 1 06/24/2024 09/22/2024 Active traZODone (Desyr el) 50 MG tablet Take 50 mg by mouth as needed at bedtime. 0 Active take 2 tablets by mo [facility] once daily at bedtime as needed traZODone HCl 50 MG 2 tablet at bedtime Orally Once a day prn Active traZODone HCl Ac tive Comment on above: Take 50 mg by mouth daily at bedtime. Vitamin C 1000 MG (3 sources) take 1 tablet by mouth once daily Vitamin C 1000 MG 1 tablet Orally Once a day Active Vitamin D 50 MCG (1999 UT) (3 sources) take 1 capsule by mouth once daily Vitamin D 50 MCG (1999 UT) 1 capsule Orally Once a day Active [...] Comment on above: Take by mouth. cycloSPORINE 0.5 mg/ml ophthalmic suspension (8 sources) Calcineurin Inhibitor Immunosuppressant End: 12-23-2023 take 1 drop(s) into the eye(s) every twelve hours cycloSPORINE (Restasis) 0.05 % ophthalmic emulsion Administer 1 drop into both eyes every 12 (twelve) hours. 12/23/2023 Discontinued (Therapy completed) take 1 drop(s) into the eye(s) twice daily cycloSPORINE (RESTASIS) 0.05 % ophthalmi c emulsion 1 Drop twice daily. 0 Active Comment on above: 1 Drop twice daily. cycloSPORINE (RESTASIS) 0.05 % ophthalmic emulsion (1 source) take 1 drop(s) into the eye(s) twice daily cycloSPORINE (RESTASIS) 0.05 % ophthalmic emulsion 1 Drop twice daily. 0 Active Comment on above: 1 Drop twice daily. fluticasone propionate 0.05 mg/actuat metered dose nasal spray (9 sources) Corticosteroid End: take 1 spray(s) nasal route in the morning fluticasone (Flonase) 50 MCG/ACT nasal spray Administer 1 spray into each nostril in the morning. 12/23/2023 Discontinued (Therapy completed) fluticasone prop ionate (FLONASE NASAL) Use in the nose. 0 Active Comment on above: Use in the nose. itraconazole 100 mg oral capsule (6 sources) Azole Antifungal Start: 03-05-2023 End: 12-23-2023 itraconazole (Sporanox) 100 MG capsule Indications: Onychomycosis 200mg twice daily for 7 days, then stop for 21 days, and then resume 200mg twice daily for 7 days then stop 56 capsule 03/05/2023 12/23/2023 Discontinued (Therapy completed) mv-min/iron/folic/calcium/ vitK (WOMEN'S MULTIVITAMIN ORAL) (3 sources) mv-min/iron/foli c/calcium/ vitK (WOMEN'S MULTIVITAMIN ORAL) Take by mouth. 0 Active Comment on above: Take by mouth. penicillin v potassium 500 mg oral tablet (2 sources) Penicillin V Pot assium 500 MG Oral for 10 Not-Taking Problems Active Problems Problem Classification Problem Date Documented Date Episodic/Chronic Anxiety disorders (17 sources) Anxiety; Translations: [Anxiety disorder, unspecified] Onset: 03-05-2023 03-05-2023 Chronic Chronic obstructive pulmonary disease and bronchiectasis (1 source) Bronchitis, not specified as acute or chronic Episodic Diseases of white blood cells (11 sources) Lymphocytopenia; Translations: [Lymphocytopenia] Onset: 05-18-2022 05-02-2023 Chronic Disorders of lipid metabolism (20 sources) Pure hypercholesterolemia, unspecified; Translations: [Hyperlipidemia, unspecified] Onset: 09-11-2021 11-13-2022 Chronic Esophageal disorders (18 sources) Gastroesophageal reflux disease; Translations: [Gastro-esophageal reflux disease without esophagitis] Onset: 03-07-2023 03-07-2023 Chronic Essential hypertension (20 sources) Essential (primary) hypertension; Translations: [Hypertensive disorder] Onset: 04-30-2022 Resolved: 06-05-2023 11-13-2022 Chronic Miscellaneous mental health disorders (16 sources) Primary insomnia; Translations: [Primary insomnia] Onset: 05-08-2023 05-08-2023 Chronic Osteoarthritis (14 sources) Osteoarthritis of joint of right shoulder region; Translations: [Primary osteoarthritis, right shoulder] Onset: 05-02-2023 Chronic Osteoporosis (19 sources) Age-related osteoporosis without current pathological fracture; Translations: [Osteoporosis] Onset: 09-11-2021 11-13-2022 Chronic Other connective tissue disease (7 sources) Pain in right thumb; Translations: [Pain in right finger(s)] Onset: 05-07-2024 05-07-2024 Episodic Other nervous system disorders (11 sources) Carpal tunnel syndrome; Translations: [Carpal tunnel syndrome, unspecified upper limb] Onset: 05-02-2023 05-02-2023 Chronic Other non-traumatic joint disorders (5 sources) Derangement of right shoulder joint; Translations: [Other specific joint derangements of right shoulder, not elsewhere classified] Chronic Other non-traumatic joint disorders (5 sources) Other specific joint derangements of right shoulder, not elsewhere classified; Translations: [OTH SPEC JOINT DERANG RT SHLDR NEC] Onset: 06-04-2022 Chronic Other screening for suspected conditions (not mental disorders or infectious disease) (20 sources) Full blood count abnormal; Translations: [Other specified abnormal findings of blood chemistry] Onset: 10-09-2021 Episodic Other upper respiratory disease (16 sources) Seasonal allergy; Translations: [Other seasonal allergic rhinitis] Onset: 04-10-2023 04-10-2023 Chronic Other upper respiratory infections (1 source) Acute laryngitis Episodic Sprains and strains (1 source) Strain of unspecified muscle, fascia and tendon at shoulder and upper arm level, right arm, initial encounter Episodic Superficial injury; contusion (1 source) Contusion of right shoulder, initial encounter Episodic Thyroid disorders (20 sources) Nontoxic single thyroid nodule; Translations: [Thyroid nodule] Onset: 10-20-2021 Chronic Past or Other Problems Problem Classification Problem Date Documented Date Episodic/Chronic Allergic reactions (1 source) Localized skin eruption due to drugs and medicaments taken internally; Translations: [LOC SKN ERUPT D/T RX TAKE INTERNALY] Onset: 09-11-2021 Episodic Complications of surgical procedures or medical care (20 sources) Postoperative hypothyroidism; Translations: [Postprocedural hypothyroidism] Onset: 11-13-2022 Resolved: 05-05-2024 04-10-2023 Chronic Deficiency and other anemia (4 sources) Anemia, unspecified; Translations: [ANEMIA UNSPECIFIED] Onset: 11-09-2021 Episodic Deficiency and other anemia (11 sources) Anemia; Translations: [Anemia, unspecified] Onset: 05-02-2023 05-02-2023 Episodic E Codes: Adverse effects of medical [...] STRK UNS OBJ INT] Onset: 04-30-2022 Episodic Genitourinary symptoms and ill-defined conditions (11 sources) Asymptomatic microscopic hematuria; Translations: [Asymptomatic microscopic hematuria] Onset: 05-02-2023 05-02-2023 Episodic Inflammation; infection of eye (except that caused by tuberculosis or sexually transmitteddisease) (11 sources) Blepharitis of bilateral upper eyelids; Translations: [Unspecified blepharitis right upper eyelid] Onset: 05-02-2023 05-02-2023 Episodic Joint disorders and dislocations; trauma-related (13 sources) Closed traumatic dislocation of tarsometatarsal joint; Translations: [Dislocation of tarsometatarsal joint of unspecified foot, initial encounter] Onset: 11-13-2022 11-13-2022 Episodic Malaise and fatigue (11 sources) Fatigue; Translations: [Other fatigue] Onset: 05-02-2023 05-02-2023 Episodic Mood disorders (13 sources) Depressive disorder; Translations: [Depression] Onset: 11-13-2022 Resolved: 09-04-2023 11-13-2022 Chronic Mood disorders (6 sources) Mood disorders; Translations: [DEPRESSION UNSPECIFIED] Onset: 04-30-2022 05-07-2024 Mycoses (18 sources) Tinea unguium; Translations: [Onychomycosis] Onset: 09-09-2021 Episodic Neoplasms of unspecified nature or uncertain behavior (11 sources) Neoplastic disease of uncertain behavior; Translations: [Neoplasm of uncertain behavior, unspecified] Onset: 09-04-2023 09-04-2023 Episodic Other aftercare (1 source) detention (current) use of aspirin; Translations: [ALF CURRENT USE OF ASPIRIN] Onset: 04-30-2022 Episodic Other aftercare (1 source) Other salvage determiner (current) drug therapy; Translations: [OTH ALF CURRENT DRUG THERAPY] Onset: 04-30-2022 Episodic Other connective tissue disease (15 sources) Chronic pain of right foot; Translations: [Pain in right foot] Onset: 03-07-2023 03-07-2023 Episodic Other connective tissue disease (11 sources) Triggering of digit; Translations: [Trigger finger, right middle finger] Onset: 05-02-2023 05-02-2023 Episodic Other connective tissue disease (11 sources) Cramp in lower limb; Translations: [Cramp and spasm] Onset: 05-02-2023 05-02-2023 Episodic Other injuries and conditions due to external causes (1 source) Unspecified injury of muscle(s) and tendon(s) of the rotator cuff of right shoulder, initial encounter; Translations: [UNS INJ MSC TEND RC RT SHLDR INIT] Onset: 04-30-2022 Episodic Other nervous system disorders (13 sources) Paresthesia of skin; Translations: [Disturbance of skin sensation] Onset: 11-13-2022 11-13-2022 Episodic Other non-traumatic joint disorders (3 sources) Pain in right shoulder; Translations: [PAIN IN RIGHT SHOULDER] Onset: 04-28-2022 Episodic Other nutritional; endocrine; and metabolic disorders (11 sources) Decreased body mass index; Translations: [Body mass index (BMI) 19.9 or less, adult] Onset: 05-02-2023 05-02-2023 Episodic Other skin disorders (3 sources) Rash and other nonspecific skin eruption; Translations: [RASH OTH NONSPECIFIC SKIN ERUPTION] Onset: 09-09-2021 Episodic Other skin disorders (11 sources) Eruption; Translations: [Rash and other nonspecific skin eruption] Onset: 06-05-2023 06-05-2023 Episodic Poisoning by nonmedicinal substances (13 sources) Bee sting-induced anaphylaxis; Translations: [Toxic effect of venom of bees, accidental (unintentional), initial encounter] Onset: 03-05-2023 03-05-2023 Episodic Screening and history of mental health and substance abuse codes (14 sources) Personal history of nicotine dependence; Translations: [Ex-tobacco user] Onset: 04-30-2022 04-01-2023 Episodic Results Test Name Value Interpretation Reference Range Facility XR Hand - right [address] [address] XRay Report Signed Patient: ECTOR HUTCHISON MR#: [id number] : 1960 Acct:[id number] Age/Sex: 64 / F ADM Date: 08/03/24 Loc: LAB Attending Dr: Mary Chun NP Ordering Physician: Mary Chun NP Date of Service: 08/03/24 Procedure(s): XR hand RT min 3V Accession Number(s): [id number] cc: Mary Chun NP [address] [address] Patient Name: ECTOR HUTCHISON MRN: [id number] date: 1960 Sex: F Assigned Patient Location: LAB Current Patient Location: LAB Accession/Order Number: [id number] Exam Date: 08/03/2024 12:20 Report Date: 08/03/2024 [...] Lee M.D. 08/03/2024 12:23 PM Dictation Location: [place] [address] Electronically authenticated by: [id number] Y Date: 08/03/2024 12:23 Dictated By: Frances Lee M.D. Signed By: 08/03/24 1226 DD/ 1223 TD/TT: Mailer Apprentice: [facility] Radiology, Radiologist, - 08/03/2024 [place] [address] XRay Report Signed Patient: ECTOR HUTCHISON MR#: [id number] : 1960 Acct:[id number] Age/Sex: 64 / F ADM Date: 08/03/24 Loc: LAB Attending Dr: Mary Chun NP Ordering Physician: Mary Chun NP Date of Service: 08/03/24 Procedure(s): XR hand RT min 3V Accession Number(s): [id number] cc: Mary Chun NP The [address] [address] Patient Name: ECTOR HUTCHISON MRN: [facility]:[id number] date: 1960 Sex: F Assigned Patient Location: LAB Current Patient Location: LAB Accession/Order Number: [id number] Exam Date: 08/03/2024 12:20 Report Date: 08/03/2024 [...] Lee M.D. 08/03/2024 12:23 PM Dictation Location: [place] [address] Electronically authenticated by: [id number] Y Date: 08/03/2024 12:23 Dictated By: Frances Lee M.D. Signed By: 08/03/24 1226 DD/ 1223 TD/TT: Mailer Apprentice: [facility] Radiology Study observation (narrative) [facility] XR Hand - right 3 ViewsOrder ed By: Radiologist Radiology on 08-03-2024 [facility] Work Phone: ALL CBC WITH AUTO DIFFon BASOPHILS ABSOLUTE AUTO 0.1 [facility] Basophils/100 WBC (Bld) 1.8 % 0.2 - 2.0 % [facility] Eosinophils/100 WBC (Bld) 6.8 % 0.9 - 7.0 % [facility] Erythrocyte distribution width (RBC) [Ratio] 12.2 % 11.0 - 15.0 % [facility] Hematocrit (Bld) [Volume fraction] 39.1 % 36.0 - 48.0 % [facility] Hemoglobin (Bld) [Mass/Vol] 12.5 g/dL 12.0 - 16.0 g/dL [facility] IMMATURE GRANULOCYTES ABS AUTO 0.02 [facility] Immature granulocytes/100 WBC (Bld) 0.5 % 0.0 - 0.5 % [facility] Interpretation and review of laboratory results Abnormal [facility] LYMPHOCYTES ABSOLUTE AUTO 0.8 Low [facility] Lymphocytes/100 WBC (Bld) 18.9 % Low 20.5 - 60.0 % [facility] MCH (RBC) [Entitic mass] 30.0 pg 26.7 - 34.0 pg [facility] MCHC (RBC) [Mass/Vol] 32.0 g/dL 29.9 - 35.2 g/dL [facility] MCV (RBC) [Entitic vol] 93.8 fL 81.0 - 99.0 fL [facility] MONOCYTES ABSOLUTE AUTO 0.4 [facility] Monocytes/100 WBC (Bld) 10.0 % 1.7 - 12.0 % [facility] NEUTROPHILS ABSOLUTE AUTO 2.7 [facility] Neutrophils/100 WBC (Bld) 62.0 % 43.0 - 75.0 % [facility] Platelet mean volume (Bld) [Entitic vol] 8.8 fL Low 9.5 - 13.5 fL [facility] TBH EO # 0.3 [facility] PLT 243 [facility] RBC 4.17 Low [facility]H WBC 4.4 [facility] MG MAMM SCREEN 3D JENNIFER CADon 08-01-2022 MG MAMM SCREEN 3D JENNIFER CAD Patient: ECTOR HUTCHISON Exam Date: 08/01/2022 : 1960 Gender:F Ordering : ANA CHUN [facility] Admission #: [id number] Family : Order #: [id number] CLICK HERE TO VIEW EXAM RADIOLOGY REPORT [...] prostate cancer at age 54. LOCATION: [facility] BREAST COMPOSITION: Extremely dense, which lowers [...] M.D. on 08/01/2022 at 16:[address] [facility] MRI SHOULDER RT WO CONon MRI [...] by: ENDY PRADHAN Date: 2022-06-04 16:[address] [facility] XR SHOULDER RT 2V or >on [...] FOV: The lung apices included in the [id number] are within normal limits. IMPRESSION: Mild degenerative change. Electronically authenticated by: LAMONT FERRO Date: 2022-04-28 18:53 Normal [facility] CNOVSPon 01-01-2022 CNOVSP Visit (SP) Office ([place]) ECTOR HUTCHISON ([id number]) 1960 F Date Time Provider Department 01/01/22 11:15 AM BRANDON ARSHAD During your visit today, we recorded the following information about you: Temperature Pulse Respiration Blood pressure 97.5 degrees 88/minute 18/minute 162/80 Weight Height 43 kg 1.626 m Brandon Arshad MD 01/02/2022 5:53 PM Signed Patient left office prior to eval. Referring Provider: MARY CHUN [[id number]] Allergies As of Date: 01/01/2022 Noted Allergy [...] 40 mg by mouth once daily. - mv-min/iron/folic/calc ium/vitK (WOMEN'S MULTIVITAMIN ORAL) Take by mouth. - [...] Encounter Status:Closed by BRANDON ARSHAD on 01/02/22 [facility] Nikolai 01-01-2022 ANAN Telephone (NCCAP) ECTOR HUTCHISON ([id number]) 1960 F Date Time Provider Department 01/01/22 BRANDON ARSHAD During your visit today, we recorded the following information about you: Sobeida Franco Laine 01/01/2022 12:50 PM Signed Patient did not [...] 40 mg by mouth once daily. - mv-min/iron/folic/calc ium/vitK (WOMEN'S MULTIVITAMIN ORAL) Take by mouth. - [...] Status:Closed by RADHA DAVIS on 10/12/22 Normal [facility] CBC AUTO DIFFon 11-09-2021 BASO # 0.1 103/ul Normal 0.0-0.1 [facility] Comment on above: Performed By: #### C BC #### [facility] [address] [place] [address] [address] Laura Genao Basophils/100 WBC (Bld) 1.1 % Normal 0.2-2.0 [facility] Comment on above: Performed By: #### C BC #### [facility] [address] [place] [address] [address] Laura Genao EO # 0.1 103/ul Normal 0.0-0.7 [facility] Comment on above: Performed By: #### C BC #### [facility] [address] [place] [address] Dr. Laura Genao Eosinophils/100 WBC (Bld) 2.5 % Normal 0.9-7.0 [facility] Comment on above: Performed By: #### C BC #### [facility] [address] [place] [address] [address] Laura Genao Erythrocyte distribution width (RBC) [Ratio] 11.9 % Normal 11.0-15.0 [facility] Comment on above: Performed By: #### C BC #### [facility] [address] [place] [address] Dr. Laura Genao Hematocrit (Bld) [Volume fraction] 38.3 % Normal 36.0-48.0 [facility] Comment on above: Performed By: #### C BC #### [facility] [address] [place] [address] [address] Laura Genao Hemoglobin (Bld) [Mass/Vol] 12.7 g/dL Normal 12.0-16.0 [facility] Comment on above: Performed By: #### C BC #### [facility] [address] [place] [address] Dr. Laura Genao IG # 0.02 10e3/ul Normal 0.00-0.[address] [facility] Comment on above: Performed By: #### C BC #### [facility] [address] [place] [address] Dr. Laura Genao IG % 0.4 % Normal 0.0-0.5 [facility] Comment on above: Performed By: #### C BC #### [facility] [address] [place] [address] Dr. Laura Genao LYMPH # 0.9 103/ul Critically low 1.2-3.8 [facility] Comment on above: Performed By: #### C BC #### [facility] [address] [place] [address] Dr. Laura Genao Lymphocytes/100 WBC (Bld) 15.1 % Critically low 20.5-60.0 [facility] Comment on above: Performed By: #### C BC #### [facility] [address] [place] [address] Dr. Laura Genao MANUAL DIFF REQ NO Normal [facility] Comment on above: Performed By: #### C BC #### [facility] [address] [place] [address] Dr. Laura Genao MCH (RBC) [Entitic mass] 29.7 pg Normal 26.7-34.0 [facility] Comment on above: Performed By: #### C BC #### [facility] [address] [place] [address] Dr. Laura Genao MCHC (RBC) [Mass/Vol] 33.2 g/dL Normal 29.9-35.[address] [facility] Comment on above: Performed By: #### C BC #### [facility] [address] [place] [address] Dr. Laura Genao MCV (RBC) [Entitic vol] 89.7 fL Normal 81.0-99.[address] [facility] Comment on above: Performed By: #### C BC #### [facility] [address] [place] [address] Dr. Laura Genao MONO # 0.4 103/ul Normal 0.3-0.[address] [facility] Comment on above: Performed By: #### C BC #### [facility] [address] [place] [address] Dr. Laura Genao Monocytes/100 WBC (Bld) 7.0 % Normal 1.7-12.0 [facility] Comment on above: Performed By: #### C BC #### [facility] [address] [place] [address] Dr. Laura Genao NEUT # 4.2 103/ul Normal 1.4-6.5 [facility] Comment on above: Performed By: #### C BC #### [facility] [address] [place] [address] Dr. Laura Genao Neutrophils/100 WBC (Bld) 73.9 % Normal 43.0-75.0 [facility] Comment on above: Performed By: #### C BC #### [facility] [address] [place] [address] Dr. Laura Genao Platelet mean volume (Bld) [Entitic vol] 8.8 fL Critically low 9.5-13.5 [facility] Comment on above: Performed By: #### C BC #### [facility] [address] [place] [address] Dr. Laura Genao PLT 349 103/ul Normal 150-450 [facility] Comment on above: Performed By: #### C BC #### [facility] [address] [place] [address] Dr. Laura Genao RBC 4.27 106/ul Normal 4.20-5.[address] [facility] Comment on above: Performed By: #### C BC #### [facility] [address] [place] [address] Dr. Laura Genao WBC 5.7 103/ul Normal 4.0-11.0 [facility] Comment on above: Performed By: #### C BC #### [facility] [address] [place] [address] Dr. Laura Genao FERRITINon 11-09-2021 Ferritin [Mass/Vol] 61.0 ng/mL Normal 8.0-252.0 [facility] Comment on above: Performed By: #### L IPID, CMP #### [facility] [address] [place] [address] [address] Laura Genao IRONon 11-09-2021 Iron [Mass/Vol] 81.0 ug/dL Normal 50.0-170.0 [facility] Comment on above: Performed By: #### L IPID, CMP #### [facility] [address] [place] [address] Dr. Laura Genao VITAMIN B12on 11-09-2021 Cobalamin (Vitamin B12) [Mass/Vol] 336.0 pg/mL Normal 193.0-986.0 [facility] Comment on above: Performed By: #### L IPID, CMP #### [facility] [address] [place] [address] Dr. Laura Genao US THYROIDon 10-20-2021 US THYROID EXAMINATION: US THYROID HISTORY: Non-toxic uninodular goiter COMPARISON: Ultrasound thyroid [...] ENDY PRADHAN Date: 2021-10-20 17:[address] [facility] CBC AUTO DIFFon 10-09-2021 BASO # 0.1 103/ul Normal 0.0-0.1 [facility] Comment on above: Performed By: #### C BC #### [facility] [address] [place] [address] Dr. Laura Genao Basophils/100 WBC (Bld) 1.1 % Normal 0.2-2.0 [facility] Comment on above: Performed By: #### C BC #### [facility] [address] [place] [address] Dr. Laura Genao EO # 0.2 103/ul Normal 0.0-0.7 [facility] Comment on above: Performed By: #### C BC #### [facility] [address] [place] [address] Dr. Laura Genao Eosinophils/100 WBC (Bld) 3.3 % Normal 0.9-7.0 [facility] Comment on above: Performed By: #### C BC #### [facility] [address] [place] [address] Dr. Laura Genao Erythrocyte distribution width (RBC) [Ratio] 12.1 % Normal 11.0-15.0 [facility] Comment on above: Performed By: #### C BC #### [facility] [address] [place] [address] Dr. Laura Genao Hematocrit (Bld) [Volume fraction] 34.6 % Critically low 36.0-48.0 [facility] Comment on above: Performed By: #### C BC #### [facility] [address] [place] [address] Dr. Laura Genao Hemoglobin (Bld) [Mass/Vol] 11.5 g/dL Critically low 12.0-16.0 [facility] Comment on above: Performed By: #### C BC #### [facility] [address] [place] [address] Dr. Laura Genao IG # 0.01 10e3/ul Normal 0.00-0.03 [facility] Comment on above: Performed By: #### C BC #### [facility] [address] [place] [address] Dr. Laura Genao IG % 0.2 % Normal 0.0-0.[address] [facility] Comment on above: Performed By: #### C BC #### [facility] [address] [place] [address] Dr. Laura Genao LYMPH # 1.1 103/ul Critically low 1.2-3.8 [facility] Comment on above: Performed By: #### C BC #### [facility] [address] [place] [address] Dr. Laura Genao Lymphocytes/100 WBC (Bld) 25.2 % Normal 20.5-60.0 [facility] Comment on above: Performed By: #### C BC #### [facility] [address] [place] [address] Dr. Laura Genao MANUAL DIFF REQ NO Normal [facility] Comment on above: Performed By: #### C BC #### [facility] [address] [place] [address] Dr. Laura Genao MCH (RBC) [Entitic mass] 29.6 pg Normal 26.7-34.0 [facility] Comment on above: Performed By: #### C BC #### [facility] [address] [place] [address] Dr. Laura Genao MCHC (RBC) [Mass/Vol] 33.2 g/dL Normal 29.9-35.2 [facility] Comment on above: Performed By: #### C BC #### [facility] [address] [place] [address] Dr. Laura Genao MCV (RBC) [Entitic vol] 89.2 fL Normal 81.0-99.0 [facility] Comment on above: Performed By: #### C BC #### [facility] [address] [place] [address] Dr. Laura Genao MONO # 0.4 103/ul Normal 0.3-0.8 [facility] Comment on above: Performed By: #### C BC #### [facility] [address] [place] [address] Dr. Laura Genao Monocytes/100 WBC (Bld) 8.8 % Normal 1.7-12.0 [facility] Comment on above: Performed By: #### C BC #### [facility] [address] [place] [address] Dr. Laura Genao NEUT # 2.8 103/ul Normal 1.4-6.5 [facility] Comment on above: Performed By: #### C BC #### [facility] [address] [place] [address] Dr. Laura Genao Neutrophils/100 WBC (Bld) 61.4 % Normal 43.0-75.0 [facility] Comment on above: Performed By: #### C BC #### [facility] [address] [place] [address] Dr. Laura Genao Platelet mean volume (Bld) [Entitic vol] 8.7 fL Critically low 9.5-13.5 [facility] Comment on above: Performed By: #### C BC #### [facility] [address] [place] [address] Dr. Laura Genao PLT 301 103/ul Normal 150-450 [facility] Comment on above: Performed By: #### C BC #### [facility] [address] [place] [address] Dr. Laura Genao RBC 3.88 106/ul Critically low 4.20-5.40 [facility] Comment on above: Performed By: #### C BC #### [facility] [address] [place] [address] Dr. Laura Genao WBC 4.5 103/ul Normal 4.0-11.0 [facility] Comment on above: Performed By: #### C BC #### [facility] [address] [place] [address] Dr. Laura Genao CBC AUTO DIFFon 09-09-2021 BASO # 0.1 103/ul Normal 0.0-0.1 [facility] Comment on above: Performed By: #### C BC #### [facility] [address] [place] [address] Dr. Laura Genao Basophils/100 WBC (Bld) 1.4 % Normal 0.2-2.0 [facility] Comment on above: Performed By: #### C BC #### [facility] [address] [place] [address] Dr. Laura Genao EO # 0.3 103/ul Normal 0.0-0.7 [facility] Comment on above: Performed By: #### C BC #### [facility] [address] [place] [address] Dr. Laura Genao Eosinophils/100 WBC (Bld) 7.0 % Normal 0.9-7.0 [facility] Comment on above: Performed By: #### C BC #### [facility] [address] [place] [address] Dr. Laura Genao Erythrocyte distribution width (RBC) [Ratio] 11.6 % Normal 11.0-15.0 [facility] Comment on above: Performed By: #### C BC #### [facility] [address] [place] [address] Dr. Laura Genao Hematocrit (Bld) [Volume fraction] 38.6 % Normal 36.0-48.0 [facility] Comment on above: Performed By: #### C BC #### [facility] [address] [place] [address] Dr. Laura Genao Hemoglobin (Bld) [Mass/Vol] 13.0 g/dL Normal 12.0-16.0 [facility] Comment on above: Performed By: #### C BC #### [facility] [address] [place] [address] Dr. Laura Genao IG # 0.00 10e3/ul Normal 0.00-0.03 [facility] Comment on above: Performed By: #### C BC #### [facility] [address] [place] [address] Dr. Laura Genao IG % 0.0 % Normal 0.0-0.5 [facility] Comment on above: Performed By: #### C BC #### [facility] [address] [place] [address] Dr. Laura Genao LYMPH # 0.8 103/ul Critically low 1.2-3.8 [facility] Comment on above: Performed By: #### C BC #### [facility] [address] [place] [address] Dr. Laura Genao Lymphocytes/100 WBC (Bld) 22.8 % Normal 20.5-60.0 [facility] Comment on above: Performed By: #### C BC #### [facility] [address] [place] [address] Dr. Laura Genao MANUAL DIFF REQ NO Normal [facility] Comment on above: Performed By: #### C BC #### [facility] [address] [place] [address] Dr. Laura Genao MCH (RBC) [Entitic mass] 29.9 pg Normal 26.7-34.[address] [facility] Comment on above: Performed By: #### C BC #### [facility] [address] [place] [address] Dr. Laura Genao MCHC (RBC) [Mass/Vol] 33.7 g/dL Normal 29.9-35.[address] [facility] Comment on above: Performed By: #### C BC #### [facility] [address] [place] [address] Dr. Laura Genao MCV (RBC) [Entitic vol] 88.7 fL Normal 81.0-99.[address] [facility] Comment on above: Performed By: #### C BC #### [facility] [address] [place] [address] Dr. Laura Genao MONO # 0.3 103/ul Normal 0.3-0.[address] [facility] Comment on above: Performed By: #### C BC #### [facility] [address] [place] [address] Dr. Laura Genao Monocytes/100 WBC (Bld) 6.8 % Normal 1.7-12.0 [facility] Comment on above: Performed By: #### C BC #### [facility] [address] [place] [address] Dr. Laura Genao NEUT # 2.3 103/ul Normal 1.4-6.[address] [facility] Comment on above: Performed By: #### C BC #### [facility] [address] [place] [address] Dr. Laura Genao Neutrophils/100 WBC (Bld) 62.0 % Normal 43.0-75.[address] [facility] Comment on above: Performed By: #### C BC #### [facility] [address] [place] [address] Dr. Laura Genao Platelet mean volume (Bld) [Entitic vol] 9.0 fL Critically low 9.5-13.[address] [facility] Comment on above: Performed By: #### C BC #### [facility] [address] [place] [address] [address] Laura Genao PLT 249 103/ul Normal 150-450 [facility] Comment on above: Performed By: #### C BC #### [facility] [address] [address] [address] Laura Genao RBC 4.35 106/ul Normal 4.20-5.40 [facility] Comment on above: Performed By: #### C BC #### [facility] [address] [address] [address] Laura Genao WBC 3.7 103/ul Critically low 4.0-11.0 [facility] Comment on above: Performed By: #### C BC #### [facility] [address] [place] [address] Dr. Laura Genao LIPID PROFILEon 09-09-2021 CHOL-HDL RATIO NORM SEE BELOW Normal [facility] Comment on above: Result Comment: 3.3 - 4.4 LOW RISK 4.4 - 7.1 AVERAGE RISK 7.1 - 11.0 MODERATE RISK >11.0 HIGH RISK Performed By: #### L IPID, CMP #### [facility] [address] [place] [address] Dr. Laura Genao Cholesterol [Mass/Vol] 196 mg/dL Normal <=200 [facility] Comment on above: Performed By: #### L IPID, CMP #### [facility] [address] [place] [address] Dr. Laura Genao Cholesterol in HDL [Mass/Vol] 78 mg/dL Critically high 40-60 [facility] Comment on above: Performed By: #### L IPID, CMP #### [facility] [address] [place] [address] Dr. Laura Genao Cholesterol in LDL [Mass/Vol] 104.4 mg/dL Normal [facility] Comment on above: Performed By: #### L IPID, CMP #### [facility] [address] [address] [address] Laura Genao Cholesterol.total/C holesterol in HDL [Mass ratio] 2.5 {ratio} Normal [facility] Comment on above: Performed By: #### L IPID, CMP #### [facility] [address] [address] [address] Laura Genao HDL NORMAL > or = 60 mg/dl - LO W CARDIOVASCULAR RISK <40 mg/dl - HIGH CARDIOVASCULAR RISK Normal [facility] Comment on above: Performed By: #### L IPID, CMP #### [facility] [address] [address] [address] Laura Genao LDL CALC NORMAL SEE BELOW Normal [facility] Comment on above: Result Comment: <100 mg/dl OPTIMAL 100 - 129 mg/dl NEAR OR ABOVE OPTIMAL 130 - 159 mg/dl BORDERLINE HIGH 160 - 189 mg/dl HIGH >190 mg/dl VERY HIGH Performed By: #### L IPID, CMP #### [facility] [address] [place] [address] Dr. Laura Genao Triglyceride [Mass/Vol] 68 mg/dL Normal <=150 [facility] Comment on above: Performed By: #### L IPID, CMP #### [facility] [address] [address] [address] Laura Genao VLDL CALC 13.6 mg/dL Normal [facility] Comment on above: Performed By: #### L IPID, CMP #### [facility] [address] [place] [address] Dr. Laura Genao PROF 14(COMP METB)on 022 Albumin [Mass/Vol] 4.0 g/dL Normal 3.4-5.0 [facility] Comment on above: Performed By: #### L IPID, CMP #### [facility] [address] [address] [address] Laura Genao Albumin/Globulin [Mass ratio] 1.4 {ratio} Normal [facility] Comment on above: Performed By: #### L IPID, CMP #### [facility] [address] [address] [address] Laura Genao ALP [Catalytic activity/Vol] 55 U/L Normal 46-116 [facility] Comment on above: Performed By: #### L IPID, CMP #### [facility] [address] [address] [address] Laura Genao ALT [Catalytic activity/Vol] 22 U/L Normal 14-59 [facility] Comment on above: Performed By: #### L IPID, CMP #### [facility] [address] [address] [address] Laura Genao Anion gap [Moles/Vol] 8.9 mmol/L Normal [facility] Comment on above: Performed By: #### L IPID, CMP #### [facility] [address] [address] [address] Laura Genao AST [Catalytic activity/Vol] 16 U/L Normal 15-37 [facility] Comment on above: Performed By: #### L IPID, CMP #### [facility] [address] [place] [address] Dr. aLura Genao Bilirubin [Mass/Vol] 0.5 mg/dL Normal 0.2-1.0 [facility] Comment on above: Performed By: #### L IPID, CMP #### [facility] [address] [address] [address] Laura Genao Calcium [Mass/Vol] 8.9 mg/dL Normal 8.5-10.1 [facility] Comment on above: Performed By: #### L IPID, CMP #### [facility] [address] [address] [address] Laura Genao Chloride [Moles/Vol] 104 mmol/L Normal 98-[address] [facility] Comment on above: Performed By: #### L IPID, CMP #### [facility] [address] [address] [address] Laura Genao CO2 [Moles/Vol] 30.7 mmol/L Normal 21.0-32.0 [facility] Comment on above: Performed By: #### L IPID, CMP #### [facility] [address] [address] [address] Laura Genao Creatinine [Mass/Vol] 0.81 mg/dL Normal 0.55-1.02 [facility] Comment on above: Performed By: #### L IPID, CMP #### [facility] [address] [address] [address] Laura Genao EGFR-AF BELARUSIAN >60 Normal >=60 [facility] Comment on above: Performed By: #### L IPID, CMP #### [facility] [address] [address] [address] Laura Genao EGFR-NON AF BELARUSIAN >60 Normal >=60 [facility] Comment on above: Performed By: #### L IPID, CMP #### [facility] [address] [address] [address] Laura Genao Globulin (S) [Mass/Vol] 2.9 g/dL Normal [facility] Comment on above: Performed By: #### L IPID, CMP #### [facility] [address] [address] [address] Laura Genao Glucose [Mass/Vol] 105 mg/dL Normal 74-106 [facility] Comment on above: Performed By: #### L IPID, CMP #### [facility] [address] [address] [address] Laura Genao Potassium [Moles/Vol] 3.6 mmol/L Normal 3.5-5.1 [facility] Comment on above: Performed By: #### L IPID, CMP #### [facility] [address] [address] [address] Laura Genao Protein [Mass/Vol] 6.9 g/dL Normal 6.4-8.2 [facility] Comment on above: Performed By: #### L IPID, CMP #### [facility] [address] [address] [address] Laura Genao Sodium [Moles/Vol] 140 mmol/L Normal 136-145 [facility] Comment on above: Performed By: #### L IPID, CMP #### [facility] [address] [address] [address] Laura Genao Urea nitrogen [Mass/Vol] 17.0 mg/dL Normal 7.0-18.0 [facility] Comment on above: Performed By: #### L IPID, CMP #### [facility] [address] [address] [address] Laura Genao Urea nitrogen/Creatinine [Mass ratio] 21.0 mg/mg Normal [facility] Comment on above: Performed By: #### L IPID, CMP #### [facility] [address] [address] [address] Laura Genao VITAMIN D 25 OHon 09-09-2021 VIT D 25-OH 40.9 ng/mL Normal [facility] Comment on above: Performed By: #### V ITAD #### [facility] [address] [address] [address] Laura Genao VIT D RANGES SEE BELOW Normal [facility] Comment on above: Result Comment: <20 ng/mL Vit D deficient 20 - <30 ng/mL Vit D insufficient 30 - 100 ng/mL Vit D sufficient >100 ng/mL Potential Toxicity Performed By: #### V ITAD #### [facility] [address] [place] [address] Dr. Laura Genao Vital Signs Date Time Vital Sign Value Performing Clinician Facility 05-07-2024 11:190500 Body height 160 cm Mary Chun MEDICATION TECHNICIAN Work Phone: [facility] 05-07-2024 11:19-0500 Body mass index (BMI) [Ratio] 20.65 kg/m2 Mary Chun MEDICATION TECHNICIAN Work Phone: [facility] 05-07-2024 11:19-0500 Body temperature 98.49 [degF] Mary Chun MEDICATION TECHNICIAN Work Phone: [facility] 05-07-2024 11:19-0500 Body weight 52.89 kg Mary Chun MEDICATION TECHNICIAN Work Phone: [facility] 05-07-2024 11:19-0500 Diastolic blood pressure 82 mm[Hg] Mary Chun MEDICATION TECHNICIAN Work Phone: [facility] 05-07-2024 11:19-0500 Heart rate 93 /min Mary Aichholz MEDICATION TECHNICIAN Work Phone: [facility] 05-07-2024 11:19-0500 Respiratory rate 18 /min Mary Annemarieholz MEDICATION TECHNICIAN Work Phone: [facility] 05-07-2024 11:19-0500 SaO2% (BldA) [Mass fraction] 96 % Mary Jadenhholz MEDICATION TECHNICIAN Work Phone: [facility] 05-07-2024 11:19-0500 Systolic blood pressure 128 mm[Hg] Mary Aichholz MEDICATION TECHNICIAN Work Phone: [facility] 12-23-2023 13:39-0400 Body mass index (BMI) [Ratio] 20.02 kg/m2 Mary Aichholz MEDICATION TECHNICIAN Work Phone: [facility] 12-23-2023 13:39-0400 Body temperature 98.4 [degF] Mary Jadenhholz MEDICATION TECHNICIAN Work Phone: [facility] 12-23-2023 13:39-0400 Body weight 51.26 kg Mary Jadenhholz MEDICATION TECHNICIAN Work Phone: [facility] 12-23-2023 13:39-0400 Diastolic blood pressure 82 mm[Hg] Mary Jadenhholz MEDICATION TECHNICIAN Work Phone: [facility] 12-23-2023 13:39-0400 Heart rate 78 /min Mary Jadenhholz MEDICATION TECHNICIAN Work Phone: [facility] 12-23-2023 13:39-0400 SaO2% (BldA) [Mass fraction] 96 % Mary Aichholz MEDICATION TECHNICIAN Work Phone: [facility] 12-23-2023 13:39-0400 Systolic blood pressure 138 mm[Hg] Mary Aichholz MEDICATION TECHNICIAN Work Phone: [facility] 06-23-2022 14:05-0400 Body height 162.56 cm Mary Barr Other [facility] Other 06-23-2022 14:05-0400 Body mass index (BMI) [Ratio] 16.82 kg/m2 Mary Barr Other [facility] Other 06-23-2022 14:05-0400 Body temperature 98.3 [degF] Mary Barr Other [facility] Other 06-23-2022 14:05-0400 Body weight 44.45 kg Mary Barr Other [facility] Other 06-23-2022 14:05-0400 Respiratory rate 18 /min Mary Barr Other [facility] Other 06-23-2022 14:05-0400 SaO2% (BldA) [Mass fraction] 95 % Mary Barr Other [facility] Other 06-01-2022 16:00-0400 Body height 162.56 cm Keara Santosmond Other [facility] Other 06-01-2022 16:00-0400 Body mass index (BMI) [Ratio] 17.37 kg/m2 Keara Shira Other [facility] Other 06-01-2022 16:00-0400 Body temperature 98.4 [degF] Keara Shira Other [facility] Other 06-01-2022 16:00-0400 Body weight 45.9 kg Keara Shira Other [facility] Other 06-01-2022 16:00-0400 Diastolic blood pressure 89 mm[Hg] Keara Shira Other [facility] Other 06-01-2022 16:00-0400 Respiratory rate 18 /min Keara Silva Other [facility] Other 06-01-2022 16:00-0400 SaO2% (BldA) [Mass fraction] 96 % Keara Silva Other [facility] Other 06-01-2022 16:00-0400 Systolic blood pressure 152 mm[Hg] Keara Silva Other [facility] Other 05-10-2022 08:30-0500 Body height 162.56 cm Haylie Mueller Other [facility] Other 05-10-2022 08:30-0500 Body mass index (BMI) [Ratio] 16.48 kg/m2 Haylie Mueller Other [facility] Other 05-10-2022 08:30-0500 Body weight 43.55 kg Haylie Mueller Other [facility] Other 01-01-2022 10:54-0400 Body height 162.6 cm Brandon Arshad MD Work Phone: [facility] 01-01-2022 10:54-0400 Body temperature 97.5 [degF] Brandon Arshad MD Work Phone: [facility] 01-01-2022 10:54-0400 Body weight 43 kg Brandon Arshad MD Work Phone: [facility] 01-01-2022 10:54-0400 Diastolic blood pressure 80 mm[Hg] Brandon Arshad MD Work Phone: [facility] 01-01-2022 10:54-0400 Heart rate 88 /min Brandon Arshad MD Work Phone: [facility] 01-01-2022 10:54-0400 Respiratory rate 18 /min Brandon Arshad MD Work Phone: [facility] 01-01-2022 10:54-0400 SaO2% (BldA) [Mass fraction] 97 % Brandon Arshad MD Work Phone: [facility] 01-01-2022 10:54-0400 Systolic blood pressure 162 mm[Hg] Brandon Arshad MD Work Phone: [facility] Encounters Encounter Date Encounter Type Care Provider Facility Start: 08-03-2024 End: 08-03-2024 Clinisync Result Encounter Mary Adiel MEDICATION TECHNICIAN Work Phone: [facility] Unsolicited Start: 08-03-2024 End: 08-03-2024 Clinisync Result Encounter Mary Adiel MEDICATION TECHNICIAN Work Phone: [facility] Unsolicited Start: 06-29-2024 End: 06-29-2024 Refill Mary Aichholz MEDICATION TECHNICIAN Work Phone: [facility] Comment on above: Primary hypertension (CMS/HCC); Hyperlipidemia, unspecified hyperlipidemia type (CMS/HCC) Start: 06-24-2024 End: 06-24-2024 Refill Mary Aichholz MEDICATION TECHNICIAN Work Phone: [facility] Comment on above: Osteoporosis, unspec ified osteoporosis type, unspecified pathological fracture presence (CMS/HCC); Primary insomnia Start: 05-07-2024 End: 05-07-2024 Bamboo flowsheet Mary Aichholz MEDICATION TECHNICIAN Work Phone: [facility] Start: 05-07-2024 End: 05-07-2024 Bamboo flowsheet Mary Aichholz MEDICATION TECHNICIAN Work Phone: [facility] Start: 05-07-2024 End: 05-07-2024 ambulatory MARY AICHHOLZ Not Available Start: 05-07-2024 End: 05-07-2024 Patient encounter procedure Mary Chun MEDICATION TECHNICIAN Work Phone: [facility] Comment on above: Encounter for soheila rodriguez annual wellness visit (AWV) in Medicare patient (Primary Dx); Primary insomnia; Primary hypertension (CMS/HCC); Gastroesophageal reflux disease, unspecified whether esophagitis present; Osteoporosis, unspecified osteoporosis type, unspecified pathological fracture presence (CMS/HCC); Postoperative hypothyroidism (CMS/HCC); Anxiety and depression (CMS/HCC); Mixed hyperlipidemia (CMS/HCC); Thumb pain, right; Colon cancer screening Start: 05-05-2024 Patient encounter procedure Mary Chun MEDICATION TECHNICIAN Work Phone: [facility] Start: 12-23-2023 End: 12-23-2023 Bamboo flowsheet Mary Chun MEDICATION TECHNICIAN Work Phone: [facility] Start: 12-23-2023 End: 12-23-2023 Bamboo flowsheet Mary Chun MEDICATION TECHNICIAN Work Phone: [facility] Start: 12-23-2023 End: 12-23-2023 Office outpatient visit 25 minutes Mary Chun MEDICATION TECHNICIAN Work Phone: [facility] Comment on above: Primary hypertension (CMS/HCC) (Primary Dx); Osteoporosis, unspecified osteoporosis type, unspecified pathological fracture presence (CMS/HCC); Gastroesophageal reflux disease, unspecified whether esophagitis present; Chronic pain in right foot; Postoperative hypothyroidism (CMS/HCC); Hyperlipidemia, unspecified hyperlipidemia type (CMS/HCC); Seasonal allergies; Anxiety; Primary insomnia Start: 12-23-2023 End: 12-23-2023 ambulatory MARY AICHHOLZ Not Available Start: 11-28-2023 End: 11-29-2023 Refill Mary Chun MEDICATION TECHNICIAN Work Phone: [facility] Comment on above: Primary hypertension (CMS/HCC) (Primary Dx); Mixed hyperlipidemia (CMS/HCC) Start: 10-30-2023 End: 10-30-2023 Refill Mary Chun MEDICATION TECHNICIAN Work Phone: [facility] Comment on above: Gastroesophageal ref lux disease, unspecified whether esophagitis present Start: 09-04-2023 End: 09-04-2023 ambulatory MARY AICHHOLZ Not Available Start: 06-05-2023 End: 06-05-2023 ambulatory MARY AICHHOLZ Not Available Start: 04-15-2023 Clinisync Result Encounter Lis asim Quispez MEDICATION TECHNICIAN Work Phone: [facility] Unsolicited Start: 04-15-2023 Clinisync Result Encounter Lis asim Sharpeholz MEDICATION TECHNICIAN Work Phone: [facility] Unsolicited Start: 04-10-2023 Refill Mary Sharpeholz MEDICATION TECHNICIAN Work Phone: [facility] Comment on above: Postoperative hypoth yroidism (CMS/HCC) (Primary Dx); Seasonal allergies Start: 04-01-2023 Patient encounter procedure Mary Chun MEDICATION TECHNICIAN Work Phone: [facility] Start: 08-01-2022 ambulatory LINK CUTTER MARY AICHHOLZ Facil ity:[facility] Start: 06-23-2022 End: 06-23-2022 ambulatory Mary Barr Other [facility] Other Start: 06-23-2022 Office outpatient vi sit 25 minutes Mary Barr [facility] Start: 06-12-2022 End: 06-12-2022 ambulatory Adithya Boykin Other [facility] Other Start: 06-12-2022 Office outpatient vi sit 25 minutes Adithya Boykin [facility] Start: 06-04-2022 End: 06-05-[address] ENDY PRADHAN Facility:[facility] Start: 06-01-2022 End: 06-01-2022 ambulatory Keara Silva Other [facility] Other Start: 06-01-2022 Office outpatient vi sit 15 minutes Keara Silva [facility] Start: 05-24-2022 End: 05-24-2022 ambulatory Adithya Boykin Other [facility] Other Start: 05-24-2022 Telephone encounter Adithya Boykin [facility] Start: 05-10-2022 End: 05-10-2022 ambulatory Haylie Mueller Other [facility] Other Start: 05-10-2022 Office outpatient ne w 45 minutes Haylie Mueller [facility] Start: 04-28-2022 End: 04-28-2022 ambulatory CROW HERNANDEZ Facility:[facility] Start: 01-01-2022 Telephone encounter Brandon mcdonald MD Work Phone: [facility] Comment on above: Appointment Start: 01-01-2022 End: 01-02-2022 ambulatory BRANDON ARSHAD Facility:[facility] Start: 01-01-2022 End: 01-02-2022 ambulatory Brandon Arshad MD Work Phone: Hematology/Oncology Comment on above: Abnormal CBC measure ment (Primary Dx) Start: 01-01-2022 End: 01-02-2022 Patient encounter procedure Brandon Arshad MD Work Phone: [facility] Start: 12-27-2021 Chart abstracting Brandon petit MD Work Phone: Hematology/Oncology Start: 11-09-2021 End: 11-10-2021 ambulatory LINK CUTTER MARY ADIEL Facility:[facility] Start: 10-20-2021 End: 10-21-[address] ELISABETH MCDONALD Facility:[facility] Start: 10-09-2021 End: 10-10-2021 ambulatory LINK CUTTER MARY ADIEL Facility:[facility] Start: 09-09-2021 End: 09-10-2021 ambulatory LINK CUTTER MARY ADIEL Facility:[facility] Procedures Date Procedure Procedure Detail Performing Clinician Start: 08-03-2024 Radex hand minimum 3 views Mary Chun MEDICATION TECHNICIAN Work Phone: Start: 04-15-2023 ALL CBC WITH AUTO DIFF Mary Chun MEDICATION TECHNICIAN Work Phone: Start: 04-01-2023 Microscopic observat ion [Identifier] in Cervix by Cyto stain Mary Chun MEDICATION TECHNICIAN Work Phone: Start: 08-01-2022 Mammography Mary whitfield MEDICATION TECHNICIAN Work Phone: Plan of Treatment Date Care Activity Detail Author Start: 04-01-2026 Screening for malign ant neoplasm of cervix [facility] Start: 05-11-2025 End: 05-11-2025 Patient encounter procedure 05/11/2025 10:00 AM EDT Office Visit [facility] [address] [place] [phone] Mary Chun, MEDICATION TECHNICIAN [address] [place] [address] [facility] Start: 05-07-2025 Medicare Annual Well ness (AWV) Medicare Annual Wellness (AWV) [facility] Start: 05-07-2025 Pneumococcal Vaccine : 65+ Years (1 of 1 - PCV) Pneumococcal Vaccine: 65+ Years (1 of 1 - PCV) [facility] Comment on above: Postponed from 04/13 (Patient Refused) Postponed from 04/13 (Patient Refused) Start: 05-07-2025 Screening for malign ant neoplasm of colon Colorectal Cancer Screening [facility] Comment on above: Postponed from 04/13 (Patient Refused) Start: 11-02-2024 Influenza vaccination Influenz a Vaccine (Season Ended) [facility] Start: 08-11-2024 End: 08-11-2024 Patient encounter procedure 08/11/2024 9:20 AM EDT Office Visit [facility] [address] [place] [phone] Mary Chun, MEDICATION TECHNICIAN [address] [place] [phone] [facility] Start: 07-02-2024 Influenza vaccination Influenza Vacc ine (#1) [facility] Comment on above: Postponed from 11/02 (Patient Refused) Start: 05-07-2024 End: 05-07-2025 Urate [Mass/volume] in Serum or Plasma Uric acid Lab Routine Thumb pain, right Expected: 05/07/2024 (Approximate), Expires: 05/07/2025 [facility] Comment on above: Expected: 05/07/2024 (Approximate), Expires: 05/07/2025 Start: 05-07-2024 End: 05-07-2025 XR Hand - right 3 Views XR hand 3+ views right Imaging Routine Thumb pain, right Expected: 05/07/2024 (Approximate), Expires: 05/07/2025 [facility] Work Phone: Comment on above: Expected: 05/07/2024 (Approximate), Expires: 05/07/2025 Start: 2024 Pneumococcal Vaccine : 65+ Years (1 of 1 - PCV) Pneumococcal Vaccine: 65+ Years (1 of 1 - PCV) [facility] Start: 03-05-2024 Screening for malign ant neoplasm of colon Colorectal Cancer Screening [facility] Comment on above: Postponed from 04/13 (Patient Refused) Start: 02-17-2024 Influenza vaccination Influenza Vacc ine (#1) [facility] Comment on above: Postponed from 11/02 (Patient Refused) Start: 12-23-2023 End: 12-23-2023 Patient encounter procedure 12/23/2023 1:40 PM EDT Office Visit [facility] [address] [place] [phone] Mary Chun NP [address] [place] [phone] [facility] on above[facility] Start: 12-10-2023 End: 12-10-2023 Patient encounter procedure 12/10/2023 9:40 AM EDT Office Visit [facility] [address] [place] [phone] Mary Chun, MEDICATION TECHNICIAN [address] [place] [phone] [facility] Start: 11-03-2023 Influenza vaccination Influenza Vacc ine (#1) [facility] Start: 09-01-2023 Influenza vaccination Influenza Vacc ine (#1) [facility] Comment on above: Postponed from 11/02 (Patient Refused) Start: 08-02-2023 Screening for malign ant neoplasm of breast Mammogram [facility] Start: 06-05-2023 End: 06-05-2023 Patient encounter procedure 06/05/2023 9:20 AM EDT Office Visit [facility] [address] [place] [phone] Mary Chun, OLYA [address] [place] [address] [facility] Start: 11-02-2022 Influenza vaccination INFLUENZA (#1) [facility] Start: 03-04-2022 DEPRESSION [facility] Start: 11-02-2021 Influenza vaccination INFLUENZA (#1) [facility] Start: 03-04-2021 DEPRESSION [address]ESS[address] [facility] Start: 2009 SHINGRIX VACCINE (1 of 2) SHINGRIX VACCINE (1 of 2) [facility] Start: 2004 COLOGUARD (FIT-DNA) COLOGUARD (FIT-D NA) [facility] Start: 2004 Colonoscopy COLONOSCOPY [facility] Start: 2004 COLORECTAL CANCER SCREENING COLORECTAL CANCER SCREENING [facility] Start: [address] COLONOGRAPHY [facility] Start: 2004 DIABETES SCREEN DIABETES SCREEN [facility] Start: 2004 FECAL OCCULT BLOOD FECAL OCCULT BLOO D [facility] Start: 2004 LIPID SCREEN LIPID SCREEN [facility] Start: 2004 SIGMOIDOSCOPY SIGMOIDOSCOPY [facility] Start: 1999 Mammography MAMMOGRAM [facility] Start: 1989 HPV TESTING HPV TESTING [facility] Start: 1989 Screening for malign ant neoplasm of cervix HPV/Cotest [facility] Start: 1980 PAP TESTING PAP TESTING [facility] Start: 1978 Urine microalbumin profile DTAP,TDAP,TD (1 - Tdap) [facility] Start: 1977 HEPATITIS C SCREENING HEPATITIS C SC REENING [facility] Start: 1977 HIV SCREENING HIV SCREENING [facility] Start: 1959 COVID-19 VACCINE (#1) COVID-19 VACCI NE (#1) [facility] Start: 1959 Screening for malign ant neoplasm of colon [facility] Payers Date Payer Category Payer Medicare MEDICARE [id number] 2024 Medicare [id number] 2023 Private Health Insurance [id number] 2023 Private Health Insurance [id number] 2022 Medicaid [id number] 2020 Medicaid [id number] 1959 Unknown [id number]. 593 1959 Unknown [id number] [id number]. 593 1959 Unknown [id number] [id number]. 593 1959 Unknown [id number] [id number]. 593 1959 Unknown [id number] [id number]. 593 1959 Unknown [id number] [id number]. 593 1959 Unknown [id number] [id number]. 593 1959 Unknown [id number] [id number]. 593 1959 Unknown [id number] [id number]. 1259 1959 Unknown [id number] [id number]. 1259 1959 Unknown [id number] [id number]. 1259 1959 Unknown [id number] [id number]. 1259 1959 Unknown [id number] 1959 Unknown [id number] Social History Date Type Detail Facility Tobacco smoking stat [facility] Tobacco smoking consumption unknown [facility] Start: 1960 Sex Assigned At Not on file [facility] Start: 01-01-2022 End: 11-13-2022 Tobacco smoking status NHIS Ex-smoker [facility] History of tobacco use Current smoker [facility] History of tobacco use Cigarette Smoker [facility] History of tobacco use Passive smoker [facility] Start: 01-01-2022 End: 11-13-2022 Tobacco use and exposure Smokeless tobacco non-user [facility] Start: 01-01-2022 End: 05-07-2024 Alcohol intake Ex-drinker (finding) [facility] Start: 12-22-2021 End: 10-31-2022 Exposure to SARS-CoV-2 (event) Not sure [facility] Start: 01-01-2022 End: 12-03-2023 Sex Assigned At [facility] Other Start: 01-01-2022 End: 12-03-2023 History of Social function [facility] Within the last year , have you been afraid of your partner or ex-partner? No [facility] Do you belong to any clubs or organizations such as confucianist groups, unions, fraternal or athletic groups, or [...] caffeine 1-2 cups per day [facility] Are you now , , , , never or living with a partner? Living with partner [facility] How often to you hav e a drink containing alcohol? 2-3 time sa week [facility] How often do you hav e 6 or more drinks on 1 occasion? Never [facility] How hard is it for y ou to pay for the very basics like food, housing, medical care, and heating Somewhat hard [facility] Do you feel stress - tense, restless, nervous, or anxious, or unable to sleep at night because your mind is troubled all the time - these days [OSQ] Not at all [facility] Clinical Notes 01-01-2022 to 05-07-2024 OLYA Garcia 05/07/2024 12:12 PM Svitlana Chun NP - 05/07/2024 12:11 PM DALE ALBRIGHT - 05/07/2024 11:00 AM Svitlana Chun NP - 05/07/2024 11:00 AM ESTPatient Instructions Note Date & Type Note Facility 05-07-2024 History of Presen t illness Narrative Associated Problem(s): Colon cancer screening Colon cancer screening options were discussed with [...] to: declines all options at this point Associated Problem(s): Thumb pain, right Add meloxicam Check xray Pt fell about a month ago slipped on ice bruised her sternum/ rib but feels fine today. Pt would like to recheck thyroid Images from the original note were not included. Ector Hutchison is a 64 y.o. female presents with chief complaint of Medicare Annual Wellness Visit Initial HPI: Diet:variety, dairy, snacks Activity: no exercises, is always in motion Mental Health Concerns:none Falls in the last year: yes Still driving: yes Do you pay your bills: yes Any hearing problems: none Any Vision problems: wears glasses Any Hospitalizations in the last year: none Specialist: none HCPOA/Living Will:none Concerns: right thumb joint pain and swelling: no trauma Hypertension This is a chronic problem. The problem is unchanged. The problem is controlled. Associated symptoms include anxiety. Pertinent negatives include no chest pain, headaches, palpitations, peripheral edema or shortness of breath. There are no associated agents to hypertension. Risk factors for coronary artery disease include post-menopausal state and dyslipidemia. Past treatments include LEATHA inhibitors. The current treatment provides significant improvement. There are no compliance problems. There is no history of CAD/MS, heart failure or PVD. Identifiable causes of hypertension include a thyroid problem. Thyroid Problem Presents for follow-up visit. Symptoms include weight gain. Patient reports no anxiety, constipation, depressed mood, diarrhea, fatigue, hair loss, hoarse voice, menstrual problem, palpitations or tremors. The symptoms have been stable. There is no history of heart failure. Anxiety Presents for follow-up visit. Patient reports no chest pain, depressed mood, dizziness, excessive worry, insomnia, irritability, nausea, nervous/anxious behavior, palpitations, shortness of breath or suicidal ideas. Symptoms occur occasionally. The severity of symptoms is mild. Compliance with medications is 76-100%. Depression Visit Type: follow-up Patient presents with the following symptoms: weight gain. Patient is not experiencing: anhedonia, depressed mood, excessive worry, feelings of hopelessness, insomnia, irritability, nervousness/anxiety, palpitations, shortness of breath, suicidal ideas, suicidal planning and thoughts of . Frequency of symptoms: occasionally Severity: mild Compliance with medications: 76-100% SUBJECTIVE: MEDICATIONS: Current Outpatient Medications Medication Instructions alendronate (FOSAMAX) 70 mg, Oral, Every 7 days Aspirin Low Dose 81 mg, Daily Calcium Carbonate (CALCIUM 500 PO) 1 tablet, Daily EPINEPHrine (Epipen) 0.3 MG/0.3ML injection syringe 1 Syringe, Once famotidine (PEPCID) 20 mg, Oral, Daily fish oil (OMEGA-3) 500 mg, Daily gabapentin (NEURONTIN) 200 mg, Oral, Nightly ibuprofen 400 mg, Every 12 hours PRN levothyroxine (SYNTHROID, LEVOXYL) 50 mcg, Oral, Daily before breakfast lisinopril 10 mg, Oral, Daily loratadine-pseudoephedrine ER (Claritin-D 12-hour) 5-120 MG 12 hr tablet 1 tablet, 2 times daily lovastatin (MEVACOR) 20 mg, Oral, Nightly meloxicam (MOBIC) 7.5 mg, Oral, Daily montelukast (SINGULAIR) 10 mg, Oral, Nightly MULTIPLE VITAMIN PO 1 tablet, Daily omeprazole (PRILOSEC) 40 mg, Oral, Daily before breakfast sertraline (ZOLOFT) 100 mg, Oral, Daily sertraline (ZOLOFT) 50 mg, Oral, Every evening traZODone (DESYREL) 100 mg, Oral, Nightly, May take 1-2 tablets ALLERGIES: Allergies Allergen Reactions Atorvastatin Unknown Bee Venom Unknown Terbinafine Hcl Rash Tolnaftate Rash REVIEW OF SYMPTOMS: Review of Systems Constitutional: Positive for weight gain. Negative for appetite change, chills, fatigue, fever and irritability. HENT: Negative for congestion, ear pain, hoarse voice and sore throat. Eyes: Negative for pain, discharge, redness and visual disturbance. Respiratory: Negative for cough, shortness of breath and wheezing. Cardiovascular: Negative for chest pain, palpitations and leg swelling. Gastrointestinal: Negative for abdominal pain, blood in stool, constipation, diarrhea, nausea and vomiting. Genitourinary: Negative for difficulty urinating, dysuria, frequency and menstrual problem. Musculoskeletal: Positive for arthralgias. Negative for back pain, joint swelling and myalgias. Skin: Negative for rash and wound. Neurological: Negative for dizziness, tremors, seizures, syncope and headaches. Psychiatric/Behavioral: Positive for depression. Negative for behavioral problems, self-injury and suicidal ideas. The patient is not nervous/anxious and does not have insomnia. Hematological: Does not bruise/bleed easily. Endocrine: Negative for polydipsia, polyphagia and polyuria. Allergic/Immunologic: Negative for environmental allergies and food allergies. PAST MEDICAL HISTORY Past Medical History: Diagnosis Date Anemia 05/02/2023 Anxiety 03/05/2023 Arthritis 05/02/2023 Asymptomatic microscopic hematuria 05/02/2023 Carpal tunnel syndrome 05/02/2023 Chronic pain in right foot 03/07/2023 COVID-19 03/13/2021 Depression (CMS/HCC) Fatigue 05/02/2023 Gastroesophageal reflux 03/07/2023 Hypothyroidism (CMS/HCC) 05/02/2023 Leg cramps 05/02/2023 Onychomycosis 03/05/2023 Osteoporosis (CMS/HCC) Paresthesia of hand, bilateral Post-operative hypothyroidism (CMS/HCC) 05/02/2023 Seasonal allergies 04/10/2023 Thyroid nodule (CMS/HCC) Trigger finger, right middle finger 05/02/2023 Past Surgical History: Procedure Laterality Date FNA W IMAGING GUIDANCE 10/31/2020 thyroid OTHER SURGICAL HISTORY 1973 repair RT tib/fib fx OTHER SURGICAL HISTORY 1960 pyloric stenosis repair OTHER SURGICAL HISTORY 02/06/2016 multiple fx d/t injury, K-wire 2nd toe, Dr. Vogel THYROID SURGERY 12/20/2020 RT thyroidectomy, Dr. Mcdonald family history includes Cancer in her father and mother. OBJECTIVE: Visit Vitals BP 128/82 (BP Location: Left arm, Patient Position: Sitting, BP Cuff Size: Adult long) Pulse 93 Temp 98.5 F (Temporal) Resp 18 Ht 5' 3 Wt 116 lb 9.6 oz SpO2 96% BMI 20.65 kg/m Smoking Status Former BSA 1.53 m Physical Exam Vitals and nursing note reviewed. Constitutional: General: She is not in acute distress. Appearance: Normal appearance. HENT: Head: Normocephalic and atraumatic. Right Ear: External ear normal. Left Ear: External ear normal. Nose: Nose normal. Mouth/Throat: Mouth: Mucous membranes are moist. Eyes: Extraocular Movements: Extraocular movements intact. Conjunctiva/sclera: Conjunctivae normal. Neck: Vascular: No carotid bruit. Cardiovascular: Rate and Rhythm: Normal rate and regular rhythm. Pulses: Normal pulses. Heart sounds: Normal heart sounds. No murmur heard. Pulmonary: Effort: Pulmonary effort is normal. Breath sounds: Normal breath sounds. No wheezing or rhonchi. Abdominal: General: Bowel sounds are normal. There is no distension. Palpations: Abdomen is soft. There is no mass. Tenderness: There is no abdominal tenderness. Musculoskeletal: Cervical back: Normal range of motion and neck supple. Right lower leg: No edema. Left lower leg: No edema. Comments: Mod swelling to the base of right thumb, no redness or warmth Lymphadenopathy: Cervical: No cervical adenopathy. Skin: General: Skin is warm and dry. Capillary Refill: Capillary refill takes 2 to 3 seconds. Findings: No rash. Neurological: General: No focal deficit present. Mental Status: She is alert and oriented to person, place, and time. Psychiatric: Mood and Affect: Mood normal. Behavior: Behavior normal. Thought Content: Thought content normal. Judgment: Judgment normal. ASSESSMENT AND PLAN: Follow up in about 3 months (around 08/07/2024) for Recheck. Problem List Items Addressed This Visit Hyperlipidemia (CMS/HCC) Current med: lovastatin Check labs yearly and prn dose changes Try to follow low fat diet Osteoporosis (CMS/HCC) Current med: alendronate DEXA scan: last one on file 05/23/2021: osteoporosis, spine -1.1, left femur -3.4 Gastroesophageal reflux Recommendations: freq small meals, nothing to eat or drink at least 2 hours prior to bed, limit caffeine, alcohol, as well as spicy foods Meds to limit or avoid if possible: NSAIDS Elevate HOB if possible Current med: omeprazole Primary hypertension (CMS/HCC) Please check blood pressure daily and record DASH diet Limit caffeine Take medication as directed Contact office if chest pain, pressure, dizziness, shortness of breath, swelling legs Recommend slow position changes Current meds: lisinopril Hypothyroidism ([facility]/HCC) Current med: levothyroxine Check labs yearly, prn dose changes, or changes in symptoms Primary insomnia Continue trazdone prn Anxiety and depression ([facility]) Stressors with home life Current meds: sertaline, trazodone PHQ 9=0 FROILAN 7=0 Encounter for initial annual wellness visit (AWV) in Medicare patient - Primary Reviewed Ht/Wt/BMI Recommend eye exam yearly Recommend dental exams twice a year Balance work/leisure activities Exercises is recommended most days of the week (appropriate as chronic conditions allow) Follow up yearly and prn Thumb pain, right Add meloxicam Check xray Relevant Medications meloxicam (Mobic) 7.5 MG tablet Other Relevant Orders XR hand 3+ views right Uric acid Colon cancer screening Colon cancer screening options were discussed with [...] to: declines all options at this point Associated Problem(s): Hyperlipidemia (CMS/HCC) Current med: lovastatin Check labs yearly and prn dose changes Try to follow low fat diet Associated Problem(s): Encounter for initial annual wellness visit (AWV) in Medicare patient Reviewed Ht/Wt/BMI Recommend eye exam yearly Recommend dental exams twice a year Balance work/leisure activities Exercises is recommended most days of the week (appropriate as chronic conditions allow) Follow up yearly and prn Associated Problem(s): Anxiety and depression (CMS/HCC) Stressors with home life Current meds: sertaline, trazodone PHQ 9=0 FROILAN 7=0 Associated Problem(s): Hypothyroidism (CMS/HCC) Current med: levothyroxine Check labs yearly, prn dose changes, or changes in symptoms Associated Problem(s): Osteoporosis (CMS/HCC) Current med: alendronate DEXA scan: last one on file 05/23/2021: osteoporosis, spine -1.1, left femur -3.4 Associated Problem(s): Gastroesophageal reflux Recommendations: freq small meals, nothing to eat or drink at least 2 hours prior to bed, limit caffeine, alcohol, as well as spicy foods Meds to limit or avoid if possible: NSAIDS Elevate HOB if possible Current med: omeprazole Associated Problem(s): Primary hypertension (CMS/HCC) Please check blood pressure daily and record DASH diet Limit caffeine Take medication as directed Contact office if chest pain, pressure, dizziness, shortness of breath, swelling legs Recommend slow position changes Current meds: lisinopril Associated Problem(s): Primary insomnia Continue trazdone prn documented in this encounter [facility] 05-07-2024 Instructions Mary Chun NP - 05/07/2024 11:00 AM EST Labs: check labs fasting 8 hours Get xray right hand Add meloxicam , if taking this, only other pain med is tylenol, no advil, ibuprofen or aleve documented in this encounter [facility] 12-23-2023 History of Presen t illness Narrative Associated Problem(s): Hyperlipidemia (CMS/HCC) Continue statin Associated Problem(s): Seasonal allergies Continue current meds Associated Problem(s): Postoperative hypothyroidism (CMS/HCC) Cont current meds Associated Problem(s): Osteoporosis (CMS/HCC) Cont fosamax Associated Problem(s): Gastroesophageal reflux Continue current meds Associated Problem(s): Primary hypertension (CMS/HCC) No changes to blood pressure meds or dose Associated Problem(s): Primary insomnia Continue trazdone prn Images from the original note were not included. Ector Hutchison is a 63 y.o. female presents with chief complaint of No chief complaint on file. HPI: Hypertension This is a chronic problem. The current episode started more than 1 year ago. The problem is unchanged. The problem is controlled. Associated symptoms include anxiety and palpitations. Pertinent negatives include no blurred vision, chest pain, headaches, peripheral edema, PND or shortness of breath. There are no associated agents to hypertension. Risk factors for coronary artery disease include dyslipidemia. Past treatments include LEATHA inhibitors. The current treatment provides significant improvement. There are no compliance problems. Anxiety Presents for follow-up visit. Symptoms include palpitations. Patient reports no chest pain, decreased concentration, depressed mood, dizziness, excessive worry, hyperventilation, impotence, insomnia, irritability (occ), muscle tension, nausea, nervous/anxious behavior, shortness of breath or suicidal ideas. Symptoms occur occasionally. The severity of symptoms is mild. Compliance with medications is 76-100%. SUBJECTIVE: MEDICATIONS: Current Outpatient Medications Medication Instructions alendronate (FOSAMAX) 70 mg, Oral, Every 7 days aspirin (ASPIRIN LOW DOSE) 81 mg, Oral, Daily Calcium Carbonate (CALCIUM 500 PO) 1 tablet, Oral, Daily EPINEPHrine (Epipen) 0.3 MG/0.3ML injection syringe 1 Syringe, Once famotidine (PEPCID) 20 mg, Oral, Daily fish oil (OMEGA-3) 500 mg, Oral, Daily gabapentin (NEURONTIN) 200 mg, Oral, Nightly ibuprofen 400 mg, Every 12 hours PRN levothyroxine (SYNTHROID, LEVOXYL) 50 mcg, Oral, Daily before breakfast lisinopril 10 mg, Oral, Daily loratadine-pseudoephedrine ER (Claritin-D 12-hour) 5-120 MG 12 hr tablet 1 tablet, Oral, 2 times daily lovastatin (MEVACOR) 20 mg, Oral, Nightly montelukast (SINGULAIR) 10 mg, Oral, Nightly MULTIPLE VITAMIN PO 1 tablet, Oral, Daily omeprazole (PRILOSEC) 40 mg, Oral, Daily before breakfast sertraline (ZOLOFT) 50 mg, Oral, Every evening sertraline (ZOLOFT) 100 mg, Oral, Daily traZODone (DESYREL) 100 mg, Oral, Nightly, May take 1-2 tablets ALLERGIES: Allergies Allergen Reactions Atorvastatin Unknown Bee Venom Unknown Terbinafine Hcl Rash Tolnaftate Rash REVIEW OF SYMPTOMS: Review of Systems Constitutional: Negative for appetite change, chills, fever and irritability (occ). HENT: Negative for congestion, ear pain and sore throat. Eyes: Negative for blurred vision, pain, discharge, redness and visual disturbance. Respiratory: Negative for cough, shortness of breath and wheezing. Cardiovascular: Positive for palpitations. Negative for chest pain, leg swelling and PND. Gastrointestinal: Negative for abdominal pain, blood in stool, constipation, diarrhea, nausea and vomiting. Genitourinary: Negative for difficulty urinating, dysuria, frequency and impotence. Musculoskeletal: Negative for arthralgias, back pain, joint swelling and myalgias. Skin: Negative for rash and wound. Neurological: Negative for dizziness, tremors, seizures, syncope and headaches. Psychiatric/Behavioral: Negative for behavioral problems, decreased concentration, self-injury and suicidal ideas. The patient is not nervous/anxious and does not have insomnia. Hematological: Does not bruise/bleed easily. Endocrine: Negative for polydipsia, polyphagia and polyuria. Allergic/Immunologic: Negative for environmental allergies and food allergies. PAST MEDICAL HISTORY Past Medical History: Diagnosis Date Anemia 05/02/2023 Anxiety 03/05/2023 Arthritis 05/02/2023 Asymptomatic microscopic hematuria 05/02/2023 Carpal tunnel syndrome 05/02/2023 Chronic pain in right foot 03/07/2023 COVID-19 03/13/2021 Depression (CMS/HCC) Fatigue 05/02/2023 Gastroesophageal reflux 03/07/2023 Hypothyroidism (CMS/HCC) 05/02/2023 Leg cramps 05/02/2023 Onychomycosis 03/05/2023 Osteoporosis (CMS/HCC) Paresthesia of hand, bilateral Post-operative hypothyroidism (CMS/HCC) 05/02/2023 Seasonal allergies 04/10/2023 Thyroid nodule (CMS/HCC) Trigger finger, right middle finger 05/02/2023 Past Surgical History: Procedure Laterality Date FNA W IMAGING GUIDANCE 10/31/2020 thyroid OTHER SURGICAL HISTORY 1973 repair RT tib/fib fx OTHER SURGICAL HISTORY 1960 pyloric stenosis repair OTHER SURGICAL HISTORY 02/06/2016 multiple fx d/t injury, K-wire 2nd toe, Dr. Vogel THYROID SURGERY 12/20/2020 RT thyroidectomy, Dr. Mcdonald family history includes Cancer in her father and mother. OBJECTIVE: Visit Vitals BP 138/82 (BP Location: Left arm, Patient Position: Sitting, BP Cuff Size: Adult long) Pulse 78 Temp 98.4 F (Temporal) Wt 113 lb SpO2 96% BMI 20.02 kg/m Smoking Status Former BSA 1.51 m Physical Exam Vitals and nursing note reviewed. Constitutional: General: She is not in acute distress. Appearance: Normal appearance. HENT: Head: Normocephalic and atraumatic. Right Ear: Tympanic membrane, ear canal and external ear normal. Left Ear: Tympanic membrane, ear canal and external ear normal. Nose: Nose normal. No congestion or rhinorrhea. Mouth/Throat: Mouth: Mucous membranes are moist. Pharynx: No oropharyngeal exudate or posterior oropharyngeal erythema. Eyes: Extraocular Movements: Extraocular movements intact. Conjunctiva/sclera: Conjunctivae normal. Neck: Vascular: No carotid bruit. Cardiovascular: Rate and Rhythm: Normal rate and regular rhythm. Pulses: Normal pulses. Heart sounds: Normal heart sounds. Pulmonary: Effort: Pulmonary effort is normal. Breath sounds: Normal breath sounds. Abdominal: General: Bowel sounds are normal. There is no distension. Palpations: Abdomen is soft. There is no mass. Tenderness: There is no abdominal tenderness. Musculoskeletal: General: Normal range of motion. Cervical back: Normal range of motion and neck supple. Right lower leg: No edema. Left lower leg: No edema. Lymphadenopathy: Cervical: No cervical adenopathy. Skin: General: Skin is warm and dry. Capillary Refill: Capillary refill takes 2 to 3 seconds. Findings: No rash. Neurological: General: No focal deficit present. Mental Status: She is alert and oriented to person, place, and time. Psychiatric: Mood and Affect: Mood normal. Behavior: Behavior normal. Thought Content: Thought content normal. Judgment: Judgment normal. ASSESSMENT AND PLAN: No follow-ups on file. Problem List Items Addressed This Visit Postoperative hypothyroidism (CMS/HCC) Cont current meds Relevant Medications levothyroxine (Synthroid, Levoxyl) 50 MCG tablet Hyperlipidemia (CMS/HCC) Continue statin Relevant Medications lovastatin (Mevacor) 20 MG tablet Osteoporosis (CMS/HCC) Cont fosamax Relevant Medications alendronate (Fosamax) 70 MG tablet Chronic pain in right foot Relevant Medications gabapentin (Neurontin) 100 MG capsule Gastroesophageal reflux Continue current meds Relevant Medications famotidine (Pepcid) 20 MG tablet omeprazole (PriLOSEC) [address] capsule Primary hypertension (CMS/HCC) - Primary No changes to blood pressure meds or dose Relevant Medications lisinopril 10 MG tablet Seasonal allergies Continue current meds Relevant Medications montelukast (Singulair) 10 MG tablet Primary insomnia Continue trazdone prn Relevant Medications traZODone (Desyrel) 50 MG tablet Other Visit Diagnoses Anxiety Relevant Medications sertraline (Zoloft) 100 MG tablet sertraline (Zoloft) 50 MG tablet documented in this encounter [facility] 06-23-2022 Evaluation note Encounter Date Diagnosis Assessment [...] understanding and is agreeable with treatment plan. [facility] Other 04-11-2023 Evaluation note* Encounter Date Diagnosis [...] right shoulder, initial encounter (ICD-10 - S46.911A) [facility] Other 03-31-2023 Evaluation note* Encounter Date Diagnosis [...] no improvement in 2 to 3 days [facility] Other 03-09-2023 Evaluation note* Encounter Date Diagnosis Assessment Notes Treatment Notes Treatment Clinical Notes May, Internal derangement of right shoulder (ICD-10 - M24.811) I have a high suspicion of a rotator cuff tear based on the history of symptoms and physical exam findings. An MRI will be necessary to plan further treatment options and potential surgery. MRI sent to [place] per patient request. Advised patient to bring disk and report to MRI follow up appt. Provided xanax script to use prior to MRI. Patient sedation sheet reviewed and signed with patient. [facility] Other 11-01-2022 NoteHNO ID: [id number] Author: Brandon Arshad MD Service: ? Author Type: Physician Type: Progress Notes Filed: 01/02/2022 5:53 PM Note Text: Patient left office prior to eval.[facility]11-01-2022 History of Present illness Narrative* Brandon Arshad MD - 01/02/2022 5:52 PM EDT Patient left office prior to eval. [facility] Miscellaneous Notes* Telephone Encounter - Sobeida Franco - 01/01/2022 12:42 PM EDT Patient did not want to wait to be seen by Dr. Lehman. Patient stated she had a lot going on right nowand her father recently . And she wasn't going to wait any longer. [facility]* Diagnosis Abnormal CBC measurement- Primary Other abnormal blood chemistry documented in this encounter [facility] noteNo [employer] Other Evaluation note* Diagnosis Postoperative hypothyroidism (CMS/HCC)- Primary Postsurgical hypothyroidism Seasonal allergies Allergic rhinitis, cause unspecified documented in this encounter [facility]* Diagnosis Anxiety- Primary Anxiety state, unspecified Depression, unspecified depression type (CMS/HCC) Onychomycosis Dermatophytosis of nail Anaphylactic reaction to bee sting, accidental or unintentional, sequela Well woman exam with routine gynecological exam- Primary Routine gynecological examination Former tobacco use Gastroesophageal reflux disease, unspecified whether esophagitis present Postoperative hypothyroidism (CMS/HCC) Postsurgical hypothyroidism Anxiety Anxiety state, unspecified Mixed hyperlipidemia (CMS/HCC) Mixed hyperlipidemia Primary hypertension (CMS/HCC) Unspecified essential hypertension Blepharitis of upper eyelids of both eyes, unspecified type- Primary Gastroesophageal reflux disease, unspecified whether esophagitis present Chronic pain in right foot Primary hypertension (CMS/HCC) Unspecified essential hypertension Hyperlipidemia, unspecified hyperlipidemia type (CMS/HCC) Body mass index (BMI) 19.9 or less, adult Seasonal allergies Allergic rhinitis, cause unspecified Primary hypertension (CMS/HCC)- Primary Unspecified essential hypertension Encounter for screening mammogram for malignant neoplasm of breast Gastroesophageal reflux disease, unspecified whether esophagitis present Hypothyroidism, unspecified type (CMS/HCC) Seasonal allergies Allergic rhinitis, cause unspecified Body mass index (BMI) 19.9 or less, adult Anxiety Anxiety state, unspecified Rash and nonspecific skin eruption Rash and other nonspecific skin eruption Anxiety and depression (CMS/HCC)- Primary Primary hypertension (CMS/HCC) Unspecified essential hypertension Hypothyroidism, unspecified type (CMS/[facility]) Neoplasm of uncertain behavior Neoplasm of uncertain behavior, site unspecified Primary hypertension ([facility])- Primary Unspecified essential hypertension Osteoporosis, unspecified osteoporosis type, unspecified pathological fracture presence ([facility]) Gastroesophageal reflux disease, unspecified whether esophagitis present Chronic pain in right foot Postoperative hypothyroidism ([facility]) Postsurgical hypothyroidism Hyperlipidemia, unspecified hyperlipidemia type ([facility]) Seasonal allergies Allergic rhinitis, cause unspecified Anxiety Anxiety state, unspecified Primary insomnia Persistent disorder of initiating or maintaining sleep documented in this encounter [facility]* Diagnosis Gastroesophageal reflux disease, unspecified whether esophagitis present documented in this encounter [facility]* Diagnosis Primary hypertension ([facility])- Primary Unspecified essential hypertension Mixed hyperlipidemia ([facility]) Mixed hyperlipidemia documented in this encounter [facility] note* Diagnosis Anxiety- Primary Anxiety state, unspecified Depression, unspecified depression type ([facility]) Onychomycosis Dermatophytosis of nail Anaphylactic reaction to bee sting, accidental or unintentional, sequela Well woman exam with routine gynecological exam- Primary Routine gynecological examination Former tobacco use Gastroesophageal reflux disease, unspecified whether esophagitis present Postoperative hypothyroidism ([facility]) Postsurgical hypothyroidism Anxiety Anxiety state, unspecified Mixed hyperlipidemia ([facility]) Mixed hyperlipidemia Primary hypertension ([facility]) Unspecified essential hypertension Blepharitis of upper eyelids of both eyes, unspecified type- Primary Gastroesophageal reflux disease, unspecified whether esophagitis present Chronic pain in right foot Primary hypertension ([facility]) Unspecified essential hypertension Hyperlipidemia, unspecified hyperlipidemia type ([facility]) Body mass index (BMI) 19.9 or less, adult Seasonal allergies Allergic rhinitis, cause unspecified Primary hypertension ([facility])- Primary Unspecified essential hypertension Encounter for screening mammogram for malignant neoplasm of breast Gastroesophageal reflux disease, unspecified whether esophagitis present Hypothyroidism, unspecified type ([facility]) Seasonal allergies Allergic rhinitis, cause unspecified Body mass index (BMI) 19.9 or less, adult Anxiety Anxiety state, unspecified Rash and nonspecific skin eruption Rash and other nonspecific skin eruption Anxiety and depression ([facility])- Primary Primary hypertension ([facility] [facility] Unspecified essential hypertension Hypothyroidism, unspecified type ([facility]) Neoplasm of uncertain behavior Neoplasm of uncertain behavior, site unspecified Primary hypertension ([facility])- Primary Unspecified essential hypertension Osteoporosis, unspecified osteoporosis type, unspecified pathological fracture presence (CMS/HCC) Gastroesophageal reflux disease, unspecified whether esophagitis present Chronic pain in right foot Postoperative hypothyroidism (CMS/HCC) Postsurgical hypothyroidism Hyperlipidemia, unspecified hyperlipidemia type (CMS/HCC) Seasonal allergies Allergic rhinitis, cause unspecified Anxiety Anxiety state, unspecified Primary insomnia Persistent disorder of initiating or maintaining sleep Encounter for initial annual wellness visit (AWV) in Medicare patient- Primary Primary insomnia Persistent disorder of initiating or maintaining sleep Primary hypertension (CMS/HCC) Unspecified essential hypertension Gastroesophageal reflux disease, unspecified whether esophagitis present Osteoporosis, unspecified osteoporosis type, unspecified pathological fracture presence (CMS/HCC) Postoperative hypothyroidism (CMS/HCC) Postsurgical hypothyroidism Anxiety and depression (CMS/HCC) Mixed hyperlipidemia (CMS/HCC) Mixed hyperlipidemia Thumb pain, right Colon cancer screening Special screening for malignant neoplasms, colon documented [facility] Diagnosis Anxiety- Primary Anxiety state, unspecified Depression, unspecified depression type (CMS/HCC) Onychomycosis Dermatophytosis of nail Anaphylactic reaction to bee sting, accidental or unintentional, sequela Well woman exam with routine gynecological exam- Primary Routine gynecological examination Former tobacco use Gastroesophageal reflux disease, unspecified whether esophagitis present Postoperative hypothyroidism (CMS/HCC) Postsurgical hypothyroidism Anxiety Anxiety state, unspecified Mixed hyperlipidemia (CMS/HCC) Mixed hyperlipidemia Primary hypertension (CMS/HCC) Unspecified essential hypertension Blepharitis of upper eyelids of both eyes, unspecified type- Primary Gastroesophageal reflux disease, unspecified whether esophagitis present Chronic pain in right foot Primary hypertension (CMS/HCC) Unspecified essential hypertension Hyperlipidemia, unspecified hyperlipidemia type (CMS/HCC) Body mass index (BMI) 19.9 or less, adult Seasonal allergies Allergic rhinitis, cause unspecified Primary hypertension (CMS/HCC)- Primary Unspecified essential hypertension Encounter for screening mammogram for malignant neoplasm of breast Gastroesophageal reflux disease, unspecified whether esophagitis present Hypothyroidism, unspecified type (CMS/HCC) Seasonal allergies Allergic rhinitis, cause unspecified Body mass index (BMI) 19.9 or less, adult Anxiety Anxiety state, unspecified Rash and nonspecific skin eruption Rash and other nonspecific skin eruption Anxiety and depression (CMS/HCC)- Primary Primary hypertension (CMS/HCC) Unspecified essential hypertension Hypothyroidism, unspecified type (CMS/HCC) Neoplasm of uncertain behavior Neoplasm of uncertain behavior, site unspecified Primary hypertension (CMS/HCC)- Primary Unspecified essential hypertension Osteoporosis, unspecified osteoporosis type, unspecified pathological fracture presence (CMS/HCC) Gastroesophageal reflux disease, unspecified whether esophagitis present Chronic pain in right foot Postoperative hypothyroidism (CMS/HCC) Postsurgical hypothyroidism Hyperlipidemia, unspecified hyperlipidemia type (CMS/HCC) Seasonal allergies Allergic rhinitis, cause unspecified Anxiety Anxiety state, unspecified Primary insomnia Persistent disorder of initiating or maintaining sleep Encounter for initial annual wellness visit (AWV) in Medicare patient- Primary Primary insomnia Persistent disorder of initiating or maintaining sleep Primary hypertension (CMS/HCC) Unspecified essential hypertension Gastroesophageal reflux disease, unspecified whether esophagitis present Osteoporosis, unspecified osteoporosis type, unspecified pathological fracture presence (CMS/HCC) Postoperative hypothyroidism (CMS/HCC) Postsurgical hypothyroidism Anxiety and depression (CMS/HCC) Mixed hyperlipidemia (CMS/[facility]) Mixed hyperlipidemia Thumb pain, right Colon cancer screening Special screening for malignant neoplasms, colon Osteoporosis, unspecified osteoporosis type, unspecified pathological fracture presence (/[facility]) Primary insomnia Persistent disorder of initiating or maintaining sleep documented [facility] this [facility] Diagnosis Anxiety- Primary Anxiety state, unspecified Depression, unspecified depression type (/HCC) Onychomycosis Dermatophytosis of nail Anaphylactic reaction to bee sting, accidental or unintentional, sequela Well woman exam with routine gynecological exam- Primary Routine gynecological examination Former tobacco use Gastroesophageal reflux disease, unspecified whether esophagitis present Postoperative hypothyroidism (CMS/HCC) Postsurgical hypothyroidism Anxiety Anxiety state, unspecified Mixed hyperlipidemia (CMS/HCC) Mixed hyperlipidemia Primary hypertension ([facility]) Unspecified essential hypertension Blepharitis of upper eyelids of both eyes, unspecified type- Primary Gastroesophageal reflux disease, unspecified whether esophagitis present Chronic pain in right foot Primary hypertension (CMS/HCC) Unspecified essential hypertension Hyperlipidemia, unspecified hyperlipidemia type (CMS/HCC) Body mass index (BMI) 19.9 or less, adult Seasonal allergies Allergic rhinitis, cause unspecified Primary hypertension ([facility]CC)- Primary Unspecified essential hypertension Encounter for screening mammogram for malignant neoplasm of breast Gastroesophageal reflux disease, unspecified whether esophagitis present Hypothyroidism, unspecified type ([facility]CC) Seasonal allergies Allergic rhinitis, cause unspecified Body mass index (BMI) 19.9 or less, adult Anxiety Anxiety state, unspecified Rash and nonspecific skin eruption Rash and other nonspecific skin eruption Anxiety and depression ([facility])- Primary Primary hypertension (CMS/HCC) Unspecified essential hypertension Hypothyroidism, unspecified type (CMS/HCC) Neoplasm of uncertain behavior Neoplasm of uncertain behavior, site unspecified Primary hypertension (CMS/HCC)- Primary Unspecified essential hypertension Osteoporosis, unspecified osteoporosis type, unspecified pathological fracture presence (CMS/HCC) Gastroesophageal reflux disease, unspecified whether esophagitis present Chronic pain in right foot Postoperative hypothyroidism (CMS/HCC) Postsurgical hypothyroidism Hyperlipidemia, unspecified hyperlipidemia type (CMS/HCC) Seasonal allergies Allergic rhinitis, cause unspecified Anxiety Anxiety state, unspecified Primary insomnia Persistent disorder of initiating or maintaining sleep Encounter for initial annual wellness visit (AWV) in Medicare patient- Primary Primary insomnia Persistent disorder of initiating or maintaining sleep Primary hypertension (CMS/HCC) Unspecified essential hypertension Gastroesophageal reflux disease, unspecified whether esophagitis present Osteoporosis, unspecified osteoporosis type, unspecified pathological fracture presence ([facility]) Postoperative hypothyroidism ([facility]CC) Postsurgical hypothyroidism Anxiety and depression ([facility]HCC) Mixed hyperlipidemia ([facility]) Mixed hyperlipidemia Thumb pain, right Colon cancer screening Special screening for malignant neoplasms, colon Primary hypertension ([facility]) Unspecified essential hypertension Hyperlipidemia, unspecified hyperlipidemia type ([facility]) documented [facility] this encounter [facility] N[facility] - Reported* Type Description Date Medical History Osteoporosis, unspec ified osteoporosis type, unspecified pathological fracture presence Medical History Primary insomnia Medical History Hypercholesterolemia Medical History Seasonal allergic rh initis, unspecified chronicity, unspecified trigger Medical History Benign essential HTN Surgical History fracture repair Surgical History Foot Surgery Surgical History wisdom teeth Hospitalization History fracture [facility] Other History general Narrative - Reported* Type [...] REMOVED 12/2019 Surgical History ABDOMINAL SURGERY A Hospitalization History fracture Hospitalization History CHILD BIRTHS Hospitalization History THYROID SURGERY [facility] Other Summary Purpose Family History No Family [...] or prosecute any alcohol or drug abuse patient.[facility] the event this information is protected by the Federal Confidentiality of Alcohol and Drug Abuse Patient Records regulations: The Federal rules restrict any use of the information to criminally investigate or prosecute any alcohol or drug abuse patient.[facility] Center[facility] the event this information is protected by the Federal Confidentiality of Alcohol and Drug Abuse Patient Records regulations: The Federal rules restrict any use of the information to criminally investigate or prosecute any alcohol or drug abuse patient.[facility] Care Teams (unrecognized sec tion and content) Scarifier Operator Relationship Specialty Start Date End Date Mary Chun CNP PCP - General Family Medicine 05/11/14 Scarifier Operator Relationship Specialty Start Date End Date Mary Chun CNP PCP - General Family Medicine 05/11/14 Scarifier Operator Relationship Specialty Start Date End Date Jadenmallorybetty Maryasim Tao LINK CUTTER PCP - General Family Medicine 05/11/14 Scarifier Operator Relationship Specialty Start Date End Date Xu Gentile MD [address] [place] [address] PCP - General Family Medicine 04/01/23 Scarifier Operator Relationship Specialty Start Date End Date Xu Gentile MD [address] [place] [address] PCP - General Family Medicine 04/01/23 Scarifier Operator Relationship Specialty Start Date End Date Xu Gentile MD [address] [place] [address] PCP - General Family Medicine 04/01/23 Scarifier Operator Relationship Specialty Start Date End Date Xu Gentile MD [address] [place] [address] PCP - General Family Medicine 04/01/23 Scarifier Operator Relationship Specialty Start Date End Date Xu Gentile MD [address] [place] [address] PCP - General Family Medicine 04/01/23 Scarifier Operator Relationship Specialty Start Date End Date Xu Gentile MD [address] [place] [address] PCP - General Family Medicine 04/01/23 Scarifier Operator Relationship Specialty Start Date End Date Xu Gentile MD [address] [place] [address] PCP - General Family Medicine 04/01/23 Scarifier Operator Relationship Specialty Start Date End Date Xu Gentile MD [address] [place] [address] PCP - General Family Medicine 04/01/23 Mary Chun NP [address] [place] [address] Nurse Practitioner Family Medicine 05/07/24 Scarifier Operator Relationship Specialty Start Date End Date Xu Gentile MD [address] [place] [address] PCP - General Family Medicine 04/01/23 Mary Chun NP [address] [place] [address] Nurse Practitioner Family Medicine 05/07/24 Scarifier Operator Relationship Specialty Start Date End Date Xu Gentile MD [address] [place] [address] PCP - General Family Medicine 04/01/23 Mary Chun NP [address] [place] [address] Nurse Practitioner Family Medicine 05/07/24 Reason for Visit (unrecogniz ed section and content) Reason Comments Abnormal CBC New patient consult Reason Comments Appointment Reason Comments Med Refill Reason Comments Medicare Annual Wellness Visit Initial Reason Onset Date Comments Med Refill 06/29/2024 INFORMATION SOURCE (unrecogn ized section and content) DATE CREATED AUTHOR 08/10/2022 [facility] DATE CREATED AUTHOR AUTHOR'S ORGANSANJAY ATION 10/13/2022 [facility] DATE CREATED AUTHOR AUTHOR'S ORGANIZ ATION 05/09/2024 [facility] FOR RECORDS PERTAINING TO PATIENTS WHO ARE [...] BE BASED ON THE PRIMARY CLINICAL RECORDS. [facility] [employer] provides no warranty or guarantee of the accuracy or completeness of information in this document.
== END 2024-08-10 08:24 | disposition home or self-care (01) ==
LOC: MAMMO 08:23
PROVIDERS: PCP Nurse Practitioner; Visit Provider Nurse Practitioner
DX: Z12.31 Encounter for screening mammogram for malignant neoplasm of breast (principal); M81.0 Age-related osteoporosis without current pathological fracture; Z80.3 Family history of malignant neoplasm of breast; Z80.1 Family history of malignant neoplasm of trachea, bronchus and lung; Z80.42 Family history of malignant neoplasm of prostate
CPT/HCPCS: 77063; 77067; 77080

== ENCOUNTER 2024-08-10 08:46 | Outpatient (OUT) | payer OTHER, SELFPAY ==
--- OUTSIDE RECORDS SUMMARY | 2024-08-10 08:49 | XMS_ITS | Clinical Summary ---
Author Organization [facility] Address [address] [place] [address] Care Team Providers Care Pocket Maker Name Role Phone Xu Gentile MD Primary Care Provider [phone] Mary Chun NP Unavailable [phone] Allergies Active Allergy Reactions Criticality Noted [...] mouth in the morning. Active fish oil (Newton-3) 500 MG capsule Take 500 mg by [...] Unsolicited Mary Chun NP 07/23/2024 Refill [facility] [address] [place] [address] Mary Chun NP Postoperative hypothyroidism (CMS/HCC); Seasonal allergies 06/29/2024 Refill [facility] [address] [place] [address] Mary Chun NP Primary hypertension (CMS/HCC); Hyperlipidemia, unspecified hyperlipidemia type (CMS/HCC) 06/24/2024 Refill [facility] [address] [place] [address] Mary Chun NP Osteoporosis, unspecified osteoporosis type, [...] often do you attend chur ch or temple services? 1 to 4 times per year 12/03/2023 Do you belong to any clubs o r organizations such as adventist groups, unions, fraternal or athletic groups, or [...] Recorded Patient Health Questionnaire-2 Score 0 05/07/2024 [facility] Occup[facility] ional [facility] - Occupational Stress [...] to sleep or slept in a senior care (including now)? No 03/05/2023 Housing Stability Vital Sign Answer Joseph e Recorded In the last 12 months, was t here a time when you were not able to pay the mortgage or rent on time? No 12/03/2023 Number of Times Moved in the Last Year Not on fi le 12/03/2023 At any time in the past 12 m [facility], were you homeless or living in a senior care (including now)? No 12/03/2023 Comments Unknown Sex [...] 08/11/2024 9:20 AM EDT [facility] [address] [place] [address] Mary Chun NP [address] [place] [address] 05/11/2025 10:00 AM EDT Office [facility] [address] [place] [address] Mary Chun NP [address] [place] [address] Health Maintenance Due Date Last Done Comments [...] Laterality Modality Upper Extremities, Hand [facility] 08/03/2024 12:2 3 PM EDT Narrative 08/03/2024 12:26 [place] [address] XRay Report Signed Patient: ECTOR HUTCHISON MR#: [id number] : 1960 Acct:[id number] Age/Sex: 64 / F ADM Date: 08/03/24 Loc: LAB Attending Dr: Mary Chun NP Ordering Physician: Mary Chun NP Date of Service: 08/03/24 Procedure(s): XR hand RT min 3V Accession Number(s): [id number] cc: Mary Chun NP The [address] [address] Patient Name: ECTOR HUTCHISON MRN: [id number] date: 1960 Sex: F Assigned Patient Location: LAB Current Patient Location: LAB Accession/Order Number: [id number] Exam Date: 08/03/2024 12:20 Report Date: 08/03/2024 [...] Lee M.D. 08/03/2024 12:23 PM Dictation Location: [place] [address] Electronically authenticated by: [id number] Y Date: 08/03/2024 12:23 Dictated By: Frances Lee M.D. Signed By: 08/03/24 1226 DD/ 1223 TD/TT: Pin Game Machine Inspector: Procedure Note Radiology, Radiologist, MD - 08/03/2024 [place] [address] XRay Report Signed Patient: ECTOR HUTCHISON SMR#: [id number] : 1960Acct:[id number] Age/Sex: 64 / FADM Date: 08/03/24 Loc: LAB Attending Dr: Mary Chun NP Ordering Physician: Mary Chun NP Date of Service: 08/03/24 Procedure(s): XR hand RT min 3V Accession Number(s): [id number] cc: Mary Chun NP [place] [id number] Patient Name: ECTOR HUTCHISON MRN: [id number] date: 1960 Sex: F Assigned Patient Location: LAB Current Patient Location: LAB Accession/Order Number: [id number] Exam Date: 08/03/2024 12:20 Report Date: 08/03/2024 [...] Lee M.D. 08/03/2024 12:23 PM Dictation Location: [place] [address] Electronically authenticated by: [id number] Y Date: 2:23 Dictated By: Frances Lee M.D. Signed By:08/03/24 1226 DD/ 1223 TD/TT: Pin Game Machine Inspector: Mary Chun GLASS BEAD MAKER IMG XR PROCEDURES Final Result from Last 3 Months Insurance MEDICARE Care Teams Pocket Maker Relationship Specialty Start Date End Date Xu Gentile MD [address] [place] [address] PCP - General Family Medicine 04/01/23 Mary Chun NP [address] [place] [address] Nurse Practitioner Family Medicine 05/07/24
--- OUTSIDE RECORDS SUMMARY | 2024-08-10 08:49 | XMS_ITS | Clinical Summary ---
Author Organization [facility] Address [address] [place], [place] [id number] Care Team Providers Care Process Excellence Manager Name Role Phone Mary Chun Aislinn PEREZ Primary Care Provider [phone] Allergies Active Allergy Reactions Criticality Noted Date [...] Phone Billing Address Self Pay Self 1960 [facility] [address] Care Teams Process Excellence Manager Relationship Specialty Start Date End Date Mary Chun, HIGH SCHOOL FOOTBALL COACH PCP - General Family Medicine 05/11/14
--- OUTSIDE RECORDS SUMMARY | 2024-08-10 08:49 | XMS_ITS | Encounter Summary ---
Author Organization [facility] Address [id number] [address] [place] [address] Care Team Providers Care Chief Growth Officer Name Role Phone Unavailable Primary Care Provider Unavailabl e Encounter Details Date Type Department Care Team (Late st Contact Info) Description 03/21/2022 Abstract [facility] - Medical Oncology [address] [place] [address] Chadwick Saxena MD [address] [facility] [address] [place] [address] Social History Tobacco Use Types Packs/Day [...] 11/07/2021 us Not In System Ref Prov [facility] IMAGING Final Res ult documented in this encounter Visit Diagnoses Not on filedocumented in this encounter
--- OUTSIDE RECORDS SUMMARY | 2024-08-10 08:49 | XMS_ITS | Encounter Summary ---
Author Organization [facility] Address [address] [place] [address] Care Team Providers Care Sales Order Coordinator Name Role Phone Xu Gentile MD Primary Care Provider [phone] Xu Gentile MD Primary Care Provider [phone] Raquel Tabor MD Unavailable [phone] Mary Chun NP Unavailable [phone] Encounter Details Date Type Department Care Team (Late st Contact Info) Description 03/03/2023 [facility] [address] [place] [address] Mary Cuhn, OLYA [address] [place] [address] Social History Tobacco Use Types Packs/Day Years [...] often do you attend chur ch or congregation services? 1 to 4 times per year 03/05/2023 Do you belong to any clubs o r organizations such as druze groups, unions, fraternal or athletic groups, or [...] Recorded Patient Health Questionnaire-2 Score 0 03/05/2023 [facility] Occupat ional Health - Occupational Stress [...] place to sleep or slept in a half-way (including now)? No 03/05/2023 Comments Unknown Sex [...] Visit [facility] [address] [place] [address] Mary Chun, RESUME SPECIALIST [address] [place] [address] 05/11/2025 10:00 AM EDT Office Visit [facility] [address] [place] [address] Mary Chun, RESUME SPECIALIST [address] [place] [address] documented as of this encounter Visit Diagnoses Not on filedocumented in this encounter Care Teams Sales Order Coordinator Relationship Specialty Start Date End Date Xu Gentile MD PCP - General Family Medicine 08/31/22 03/31/23 Xu Gentile MD [address] [place] [address] PCP - General Family Medicine 04/01/23 Raquel Tabor MD [address] [place] [address] PCP - [facility] 06/03/23 09/01/23 Mary Chun NP [address] [place] [address] Nurse Practitioner Family Medicine 05/07/24 documented as of this encounter
--- OUTSIDE RECORDS SUMMARY | 2024-08-10 08:49 | XMS_ITS | Encounter Summary ---
Author Organization [facility] Address [address] [place] [address] Care Team Providers Care Care Tech Name Role Phone Xu Gentile MD Primary Care Provider [phone] Mary Chun RATTLESNAKE FARMER Unavailable [phone] Encounter Details Date Type Department Care Team (Late st Contact Info) Description 08/03/2024 Clinisync Result Encounter [facility] External Department Unsolicited Mary Chun, RATTLESNAKE FARMER [address] [place] [phone] Social History Tobacco Use Types Packs/Day Years [...] How often do you attend chur or restorationist services? 1 to 4 times per year 12/03/2023 Do you belong to any clubs o r organizations such as catholic groups, unions, fraternal or athletic groups, or [...] Recorded Patient Health Questionnaire-2 Score 0 05/07/2024 [facility] - Occupational Stress [...] place to sleep or slept in a prison (including now)? No 03/05/2023 Housing Stability Vital Sign Answer Joseph e Recorded In the last 12 months, was t here a time when you were not able to pay the mortgage or rent on time? No 12/03/2023 Number of Times Moved in the Last Year Not on fi le 12/03/2023 At any time in the past 12 m [facility], were you homeless or living in a prison (including now)? No 12/03/2023 Comments Unknown Sex [...] Visit [facility] [address] [place] [address] Mary Chun NP [address] [place] [address] 05/11/2025 10:00 AM EDT Office Visit [facility] [address] [place] [address] Mary Chun NP [address] [place] [address] documented as of this encounter Procedures Procedure Name Priority Date/Time Associated Diagnosis Comments XR HAND 3+ VIEWS RIGHT 08/03/2024 12:23 PM EDT documented in this encounter Results * XR hand 3+ views right (08/03/2024 12:23 PM EDT) Anatomical Region Laterality Modality Upper Extremities, Hand Right Radiogra phic Imaging 08/03/2024 12:2 3 PM EDT Narrative 08/03/2024 12:26 [place] [address] XRay Report Signed Patient: ECTOR HUTCHISON MR#: [id number] : 1960 Acct:[id number] Age/Sex: 64 / F ADM Date: 08/03/24 Loc: LAB Attending Dr: Mary Chun NP Ordering Physician: Mary Chun NP Date of Service: 08/03/24 Procedure(s): XR hand RT min 3V Accession Number(s): [id number] cc: Mary Chun NP The [address] [address] Patient Name: ECTOR HUTCHISON MRN: [id number] date: 1960 Sex: F Assigned Patient Location: LAB Current Patient Location: LAB Accession/Order Number: [id number] Exam Date: 08/03/2024 12:20 Report Date: 08/03/2024 [...] Lee M.D. 08/03/2024 12:23 PM Dictation Location: [place] [address] Electronically authenticated by: [id number] Y Date: 08/03/2024 12:23 Dictated By: Frances Lee M.D. Signed By: 08/03/24 1226 DD/ 1223 TD/TT: Relocation Commissioner: Procedure Note Radiology, Radiologist, MD - 08/03/2024 [place] [address] XRay Report Signed Patient: ECTOR HUTCHISON SMR#: [id number] : 1960Acct:[id number] Age/Sex: 64 / FADM Date: 08/03/24 Loc: LAB Attending Dr: Mary Chun NP Ordering Physician: Mary Chun NP Date of Service: 08/03/24 Procedure(s): XR hand RT min 3V Accession Number(s): [id number] cc: Mary Chun NP [place] [address] Patient Name: ECTOR HUTCHISON MRN: [id number] date: 1960 Sex: F Assigned Patient Location: LAB Current Patient Location: LAB Accession/Order Number: [id number] Exam Date: 08/03/2024 12:20 Report Date: 08/03/2024 [...] Lee M.D. 08/03/2024 12:23 PM Dictation Location: [place] [address] Electronically authenticated by: [id number] Y Date: 2:23 Dictated By: Frances Lee M.D. Signed By:08/03/24 1226 DD/ 1223 TD/TT: Relocation Commissioner: Mary Chun NP IMG XR PROCEDURES Final Result documented in this encounter Visit Diagnoses Not on filedocumented in this encounter Additional Health Concerns Assessment Noted Time PHQ-9 Depression Total Score: 4 05/08/19 25 11:30 AM EST documented as of this encounter Care Teams Care Tech Relationship Specialty Start Date End Date Xu Gentile MD [address] [place] [address] PCP - General Family Medicine 04/01/23 Mary Chun NP [address] [place] [address] Nurse Practitioner Family Medicine 05/07/24 documented as of this encounter
--- OUTSIDE RECORDS SUMMARY | 2024-08-10 08:49 | XMS_ITS | Clinical Summary ---
[facility] Organization [facility] Address [id number] [place] [address] Care Team Providers Care Bacon Slicer Name Role Phone Unavailable Primary Care Provider Unavailabl e Allergies Active Allergy Reactions Criticality Noted Date Comments Bee Venom Protein (Honey Bee) Anaphylaxis High 05/18 Atorvastatin Palpitations Low 05/18/2022 Medications ASCORBATE [id number] CETIN ORAL Take by mouth. Active levothyroxine [...]
--- OUTSIDE RECORDS SUMMARY | 2024-08-10 08:50 | XMS_ITS | Encounter Summary ---
Author Organization [facility] Address [address] [place] [address] Care Team Providers Care Jack Winder Name Role Phone Mary Chun CNP Primary Care Provider [phone] Source Comments In the event this information is protected by the Federal Confidentiality of Alcohol and Drug AbusePatient Records regulations: The Federal rules restrict any use of the information to criminally investigate or prosecute any alcohol or drug abuse patient.[facility] Encounter Details Date Type Department Care Team [...] on filedocumented in this encounter Care Teams Jack Winder Relationship Specialty Start Date End Date Mary Chun CNP PCP - General Family Medicine 05/11/14 documented as of this encounter
[2024-08-10 09:15] LABS: Basophils Absolute Auto 0.1 10^3/uL (0.0-0.1); Basophils Percent Auto 1.3 % (0.2-2.0); Eosinophils Absolute Auto 0.2 10^3/uL (0.0-0.7); Eosinophils Percent Auto 6.1 % (0.9-7.0); Hematocrit 35.8 % (36.0-48.0); Hemoglobin 10.9 g/dL (12.0-16.0); Immature Granulocytes Abs Auto 0.01 10^3/uL (0.00-0.03); Immature Granulocytes Pct Auto 0.3 % (0.0-0.5); Lymphocytes Percent Auto 24.6 % (20.5-60.0); Mean Corpuscular HGB Conc 30.4 g/dL (29.9-35.2); Mean Corpuscular Hemoglobin 26.5 pg (26.7-34.0); Mean Corpuscular Volume 86.9 fL (81.0-99.0); Mean Platelet Volume 8.7 fL (9.5-13.5); Monocytes Absolute Auto 0.4 10^3/uL (0.3-0.8); Monocytes Percent Auto 10.9 % (1.7-12.0); Neutrophils Absolute Auto 2.2 10^3/uL (1.4-6.5); Neutrophils Percent Auto 56.8 % (43.0-75.0); Platelet Count 308 10^3/uL (150-450); Red Blood Count 4.12 10^6/uL (4.20-5.40); Red Cell Distribution Width 13.7 % (11.0-15.0); White Blood Count 3.9 10^3/uL (4.0-11.0)
[2024-08-10 09:53] LABS: Bilirubin Urine NEGATIVE (NEGATIVE); Blood Urine NEGATIVE (NEGATIVE); Clarity Urine CLEAR (CLEAR); Color Urine LT. YELLOW (YELLOW); Glucose Urine UA NEGATIVE (NEGATIVE); Ketones Urine NEGATIVE (NEGATIVE); Leukocyte Esterase Urine SMALL (NEGATIVE); Nitrite Urine NEGATIVE (NEGATIVE); Protein Urine NEGATIVE (NEG/TRACE)
[2024-08-10 09:54] LABS: Urine Microscopic Indicated YES
[2024-08-10 10:33] LABS: Creatinine Urine Random 142.52 mg/dL (20.00-300.00); Microalbum Creatinine Ratio Ur 9.1 mg/g (0.0-29.9); Microalbumin Urine Random <1.3 mg/dL (<=30.0)
[2024-08-10 10:51] LABS: RBC Urine 0-2 #/HPF (0-2)
[2024-08-10 10:52] LABS: Bacteria Urine TRACE #/HPF (NONE SEEN); Crystals Seen? Seen #/HPF (None Seen); Mucus Urine NONE SEEN (NONE SEEN); Squamous Epithelial Cell Urine FEW #/LPF (NONE/RARE)
[2024-08-10 10:54] LABS: Cast Seen? NONE SEEN #/LPF (NONE SEEN); Triple Phosphate Crystal Urine FEW
[2024-08-10 11:49] LABS: Alanine Aminotransferase 23 U/L (14-59); Albumin Level 3.5 g/dL (3.4-5.0); Alkaline Phosphatase 71 U/L (46-116); Anion Gap 9.9; Aspartate Amino Transferase 20 U/L (15-37); BUN Creatinine Ratio 27.2; Bilirubin Total 0.2 mg/dL (0.2-1.0); Calcium 8.6 mg/dL (8.5-10.1); Carbon Dioxide 33.4 mmol/L (21.0-32.0); Chloride 105 mmol/L (98-107); Chol HDL Ratio 2.4; Cholesterol 207 mg/dL (<=200); Estimated GFR (African America >60 (>=60 mL/min/1.73m^2); Estimated GFR (Non-African Ame >60 (>=60 mL/min/1.73m^2); Globulin 3.4 g/dL; Glucose 112 mg/dL (74-106); HDL Cholesterol 88 mg/dL (40-60); Magnesium 2.3 mg/dL (1.8-2.4); Potassium 4.3 mmol/L (3.5-5.1); Sodium 144 mmol/L (136-145); Total Protein 6.9 g/dL (6.4-8.2); Triglycerides 72 mg/dL (<=150); Uric Acid 2.5 mg/dL (2.6-6.0); VLDL CHOLESTEROL 14.4 mg/dL
[2024-08-10 12:05] LABS: Percent Iron Saturation 6.7 %
[2024-08-10 12:29] LABS: Free T4 0.81 ng/dL (0.76-1.46)
[2024-08-11 05:07] LABS: Transferrin 332 mg/dL (192-364)
== END 2024-08-10 08:47 | disposition home or self-care (01) ==
LOC: LAB 08:47
PROVIDERS: PCP Nurse Practitioner; Visit Provider Nurse Practitioner
DX: E78.2 Mixed hyperlipidemia (principal); I10 Essential (primary) hypertension; K21.9 Gastro-esophageal reflux disease without esophagitis; R31.21 Asymptomatic microscopic hematuria; D64.9 Anemia, unspecified; M81.0 Age-related osteoporosis without current pathological fracture; Z87.891 Personal history of nicotine dependence; E89.0 Postprocedural hypothyroidism; Z12.31 Encounter for screening mammogram for malignant neoplasm of breast; Z80.3 Family history of malignant neoplasm of breast; Z80.1 Family history of malignant neoplasm of trachea, bronchus and lung; Z80.42 Family history of malignant neoplasm of prostate
CPT/HCPCS: 36415; 77063; 77067; 77080; 80053; 80061; 81001; 82043; 82306; 82570; 82728; 83540; 83550; 83735; 84439; 84443; 84466; 84550; 85025

== ENCOUNTER 2024-10-13 08:31 | Outpatient (OUT) | payer OTHER, SELFPAY ==
--- OUTSIDE RECORDS SUMMARY | 2024-10-13 08:35 | XMS_ITS | Encounter Summary ---
Author Organization [facility] Address [address] [facility] [place] [address] Care Team Providers Care Soil Conservationist Name Role Phone Xu Gentile MD Primary Care Provider [phone] Mary Chun DRY CLEANING MACHINE OPERATOR HELPER Unavailable [phone] Encounter Details Date Type Department Care Team (Late st Contact Info) Description 08/17/2024 Orders Only [facility] [address] [place] [address] Mary Chun, DRY CLEANING MACHINE OPERATOR HELPER [address] [place] [address] Social History Tobacco Use Types Packs/Day Years [...] often do you attend chur ch or denominational services? 1 to 4 times per year 12/03/2023 Do you belong to any clubs o r organizations such as rastafari groups, unions, fraternal or athletic groups, or [...] Recorded Patient Health Questionnaire-2 Score 0 05/07/2024 [facility] - [...] in a half-way (including now)? No 03/05/2023 Housing Stability Vital Sign Answer Joseph e Recorded In the last 12 months, was t here a time when you were not able to pay the mortgage or rent on time? No 12/03/2023 Number of Times Moved in the Last Year Not on fi le 12/03/2023 At any time in the past 12 m [facility], were you homeless or living in a half-way (including now)? No 12/03/2023 Comments Unknown Sex and Gender Information Value Date Recorded Sex Assigned at Not on file Legal Sex Female 7:36 PM EDT Gender Identity Not on file Sexual Orientation Not on file documented as of this encounter Plan of Treatment Upcoming Encounters Date Type Department Care Team (Late st Contact Info) Description 10/14/2024 9:40 AM EDT Office Visit [facility] [address] [place] [address] Mary Chun NP [address] [place] [address] 05/11/2025 10:00 AM EDT Office Visit [facility] [address] [place] [phone] Mary Chun NP [address] [place] [address] documented as of this encounter Procedures Procedure Name Priority Date/Time Associated Diagnosis Comments DEXA BONE DENSITY Routine 08/17/2024 10:44 AM EDT documented in this encounter Results * DEXA bone density (08/17/2024 10:44 AM EDT) Anatomical Region Laterality Modality Body Radiographic Jenelle ging Mary Chun DRY CLEANING MACHINE OPERATOR HELPER IMG DXA PROCEDURES Final Result documented in this encounter Visit Diagnoses Not on filedocumented in this encounter Additional Health Concerns Assessment Noted Time PHQ-9 Depression Total Score: 4 05/08/19 25 11:30 AM EST documented as of this encounter Care Teams Soil Conservationist Relationship Specialty Start Date End Date Xu Gentile MD [address] [place] [address] PCP - General Family Medicine 04/01/23 Mary Chun NP [address] [place] [address] Nurse Practitioner Family Medicine 05/07/24 documented as of this encounter
--- OUTSIDE RECORDS SUMMARY | 2024-10-13 08:35 | XMS_ITS | Clinical Summary ---
Author Organization [facility] Address [address] [place], [place] [address] Care Team Providers Care Plc Technician Name Role Phone Mary Chun Aislinn PEREZ Primary Care Provider [phone] Allergies Active Allergy Reactions Criticality Noted Date [...] 2009 Shingrix Vaccine (1 of 2) 2009 Advance Directive Discussion 2024 Bone Density Screening 2024 Influenza Vaccine (#1) 2024 RSV Vaccine (1 - 1-dose 75+ series) [address] [place] [address] [facility] MEDICAID [facility] [address] [place] [address] Care Teams Plc Technician Relationship Specialty Start Date End Date Mary Chun, ACQUISITION ASSOCIATE PCP - General Family Medicine 05/11/14
--- OUTSIDE RECORDS SUMMARY | 2024-10-13 08:35 | XMS_ITS | Encounter Summary ---
Author Organization [facility] Address [address] [place] [address] Care Team Providers Care Information Systems Administrator Name Role Phone Mary Chun CNP Primary Care Provider [phone] Source Comments In the event this information is protected by the Federal Confidentiality of Alcohol and Drug AbusePatient Records regulations: The Federal rules restrict any use of the information to criminally investigate or prosecute any alcohol or drug abuse patient.[facility] Encounter Details Date Type Department Care [...] on filedocumented in this encounter Care Teams Information Systems Administrator Relationship Specialty Start Date End Date Mary Chun CNP PCP - General Family Medicine 05/11/14 documented as of this encounter
--- OUTSIDE RECORDS SUMMARY | 2024-10-13 08:35 | XMS_ITS | Clinical Summary ---
Author Organization [facility] Address [address] [place] [address] Care Team Providers Care Paper Gluing Operator Name Role Phone Xu Gentile MD Primary Care Provider [phone] Mary Chun NP Unavailable [phone] Allergies Active Allergy Reactions Criticality Noted [...] mouth in the morning. Active fish oil ([place]-3) 500 MG capsule Take 500 mg by [...] Daily 90 tablet 1 12/23/19 24 Active Aspirin Low Dose 81 MG EC tablet Take 81 mg by mouth Daily 04/24/19 25 Active alendronate (Fosamax) 70 MG tabletIndications: Osteoporosis, unspecified osteoporosis type, unspecified pathological fracture presence Take 1 tablet (70 mg) by mouth every 7 (seven) days 12 tablet 1 06/25/19 25 Active traZODone (Desyrel) 50 MG tabletIndications: Primary insomnia Take 2 tablets (100 mg) by mouth at bedtime May take 1-2 tablets 180 tablet 1 06/25/19 25 Active lisinopril 10 MG tabletIndications: Primary hypertension Take 1 tablet (10 mg) by mouth Daily 90 tablet 1 06/30/19 25 Active lovastatin (Mevacor) 20 MG tabletIndications: Hyperlipidemia, unspecified hyperlipidemia type Take 1 tablet (20 mg) by mouth at bedtime 90 tablet 1 06/30/19 25 Active montelukast (Singulair) 10 MG tabletIndications: Seasonal allergies TAKE 1 TABLET (10 MG) BY MOUTH AT BEDTIME 90 tablet 1 07/25/19 25 025 Active ferrous sulfate (FeroSul) 325 (65 Fe) MG tabletIndications: Iron deficiency anemia secondary to inadequate dietary iron intake Take 1 tablet (325 mg) by mouth in the morning. Take with meals. 90 tablet 1 09/26/19 25 Active levothyroxine (Synthroid, Levoxyl) 50 MCG tabletIndications: Postoperative hypothyroidism TAKE 1 TABLET (50 MCG) BY MOUTH IN THE MORNING. TAKE BEFORE MEALS. 90 tablet 1 09/26/19 025 Active sertraline (Zoloft) 50 MG tabletIndications: Anxiety TAKE 1 TABLET (50 MG) BY MOUTH IN THE EVENING 90 tablet 09/26/19 25 025 Active sertraline (Zoloft) 50 MG tabletIndications: Anxiety Take 1 tablet (50 mg) by mouth in the evening 90 tablet 1 12/23/19 24 025 Discontinued levothyroxine (Synthroid, Levoxyl) 50 MCG tabletIndications: Postoperative hypothyroidism TAKE 1 TABLET (50 MCG) BY MOUTH IN THE MORNING. TAKE BEFORE MEALS. 30 tablet 1 07/25/19 25 025 Discontinued ferrous sulfate (Fe Tabs) 325 (65 Fe) MG EC tabletIndications: Iron deficiency anemia secondary to inadequate dietary iron intake Take 1 tablet (325 mg) by mouth in the morning. Take with meals. Do not crush, chew, or split. 30 tablet 1 08/12/19 25 025 Discontinued Active Problems Problem Noted Date Diagnosed Date Iron deficiency anemia jose c christa to inadequate dietary iron intake 08/11/2024 Assessment & Plan (08/11/2024 10:12 AM EDT): Mild anemia: 08/10/24: 10.9 hgb, iron level 27 and ferritin is 15 Will start ferrous sulfate Recheck in 2 months Will refer to EGD/colonoscopy Thumb pain, right 05/07/2024 Assessment & Plan [...] Anxiety and depression 09/04/2023 Assessment & Plan (08/11/2024 6:18 AM EDT): Stressors with home life Current meds: sertaline, trazodone Assessment & Plan (05/07/2024 12:11 PM EST): [...] dermatology Primary insomnia 05/08/2023 Assessment & Plan (08/11/2024 6:16 AM EDT): Continue trazdone prn Assessment & Plan (05/07/2024 6:54 AM EST): Continue trazdone prn Assessment & Plan (12/23/2023 2:08 PM EDT): Continue trazdone prn Carpal tunnel syndrome 05/02/2023 Asymptomatic microscopic hematuria 05/02/2023 Trigger finger, right middle finger 05/02/2023 Leg cramps 05/02/2023 Arthritis 05/02/2023 Hypothyroidism 05/02/2023 Assessment & Plan (08/11/2024 6:17 AM EDT): Current med: levothyroxine Check labs yearly, prn dose changes, or changes in symptoms Assessment & Plan (05/07/2024 6:55 AM EST): [...] 04/01/2023 Primary hypertension 04/01/2023 Assessment & Plan (08/11/2024 6:16 AM EDT): Please check blood pressure daily and record DASH diet Limit caffeine Take medication as directed Contact office if chest pain, pressure, dizziness, shortness of breath, swelling legs Recommend slow position changes Current meds: lisinopril Assessment & Plan (05/07/2024 6:54 AM EST): [...] 03/07/2023 Gastroesophageal reflux 03/07/2023 Assessment & Plan (08/11/2024 6:17 AM EDT): Recommendations: freq small meals, nothing to eat or drink at least 2 hours prior to bed, limit caffeine, alcohol, as well as spicy foods Meds to limit or avoid if possible: NSAIDS Elevate HOB if possible Current med: omeprazole Assessment & Plan (05/07/2024 6:54 AM EST): [...] nodule 11/13/2022 Hyperlipidemia 11/13/2022 Assessment & Plan (08/11/2024 6:18 AM EDT): Current med: lovastatin Check labs yearly and prn dose changes Try to follow low fat diet Assessment & Plan (05/07/2024 6:55 AM EST): Current med: lovastatin Check labs yearly and prn dose changes Try to follow low fat diet Assessment & Plan (12/23/2023 2:09 PM EDT): Continue statin Paresthesia of hand, bilateral 11/13/2022 Osteoporosis 11/13/2022 Overview (08/17/2024): DEXA scan: 05/23/2021: -3.3 osteoporosis '08/17/2024: -3.2 osteoporosis Assessment & Plan (08/11/2024 9:59 AM EDT): Current med: alendronate DEXA scan: last one on file 05/23/2021: osteoporosis, spine -1.1, left femur -3.4 Had DEXA 08/10/24: waiting for results Assessment & Plan (05/07/2024 6:55 AM EST): [...] AM EDT): >>ASSESSMENT AND PLAN FOR DEPRESSION ([facility]) WRITTEN ON 03/05/2023 1:54 PM BY MARY CHUN NP Offered to change dose of meds, declines at this time >>ASSESSMENT AND PLAN FOR ANXIETY WRITTEN ON 03/05/2023 1:54 PM BY MARY CHUN NP No changes in meds Encounters Date Type Department Care Team Description 09/24/2024 Refill [facility] [address] [place] [address] Mary Chun NP Iron deficiency anemia secondary to inadequate dietary iron intake; Postoperative hypothyroidism ; Anxiety 08/17/2024 Orders Only [facility] [address] [place] [address] Mary Chun NP 08/11/2024 9:20 AM EDT Office Visit [facility] [address] [place] [address] Mary Chun NP Iron deficiency anemia secondary to inadequate dietary iron intake (Primary Dx); Primary insomnia; Primary hypertension ; Gastroesophageal reflux disease, unspecified whether esophagitis present; Osteoporosis, unspecified osteoporosis type, unspecified pathological fracture presence ; Postoperative hypothyroidism ; Anxiety and depression ; Mixed hyperlipidemia 08/11/2024 Bamboo flowsheet [facility] [address] [place] [address] Mary Chun NP 08/10/2024 Clinisync Result Encounter [facility] Department Unsolicited Mary Chun NP 08/10/2024 Clinisync Result Encounter [facility] External Department Unsolicited Mary Chun NP 08/03/2024 Clinisync Result Encounter [facility] External Department Unsolicited Mary Chun, OLYA 07/23/2024 Refill [facility] [address] [place] [address] Mary Chun, OLYA Postoperative hypothyroidism ; Seasonal allergies from Last 3 Months Family History Medical [...] often do you attend chur ch or buddhism services? 1 to 4 times per year 12/03/2023 Do you belong to any clubs o r organizations such as confucianism groups, unions, fraternal or athletic groups, or [...] Recorded Patient Health Questionnaire-2 Score 0 05/07/2024 [facility] - Occupational Stress [...] place to sleep or slept in a alf (including now)? No 03/05/2023 Housing Stability Vital Sign Answer Joseph e Recorded In the last 12 months, was t here a time when you were not able to pay the mortgage or rent on time? No 12/03/2023 Number of Times Moved in the Last Year Not on fi le 12/03/2023 At any time in the past 12 m [facility], were you homeless or living in a alf (including now)? No 12/03/2023 Comments Unknown Sex and Gender Information Value Date Recorded Sex Assigned at Not on file Legal Sex Female 7:36 PM EDT Gender Identity Not on file Sexual Orientation Not on file Last Filed Vital Signs Vital Sign Reading Time Taken Comments Blood Pressure 118/82 08/11/2024 9:32 AM EDT Pulse 87 08/11/2024 9:32 AM EDT Temperature 36.6 C (97.8 F) 08/11/2024 9:32 AM EDT Respiratory Rate 20 08/11/2024 9:32 AM EDT Oxygen Saturation 97% 08/11/2024 9:32 AM EDT Inhaled Oxygen Concentration - - Weight 52.4 kg (115 lb 9.6 oz) 08/11/2024 9:32 A M EDT Height 160 cm (5' 3 ) 05/07/2024 11:19 AM EST Body Mass Index 20.48 05/07/2024 11:19 AM EST Plan of Treatment Upcoming Encounters Date Type Department Care Team (Late st Contact Info) Description 10/14/2024 9:40 AM EDT Office Visit [facility] [address] [place] [address] Mary Chun, PAVING INSPECTOR [address] [place] [phone] 05/11/2025 10:00 AM EDT Office Visit [facility] [address] [place] [phone] Mary Chun, PAVING INSPECTOR [address] [place] [address] Health Maintenance Due Date Last Done Comments CT Colonography 1960 Colonoscopy 1960 FIT-DNA 1959 FIT 1960 FOBT 1960 Sigmoidoscopy 1960 HPV/Cotest 1989 Influenza Vaccine (#1) 2024 Colorectal Cancer Screening 05/07/2025 Postponed from 1960 (Patient Refused) Medicare Annual Wellness (AWV) 05/07/2025 05/07/2024, 04/01/2023 Pneumococcal Vaccine: 65+ Years (1 of 1 - PCV) 05/07/2025 Postponed from 04/04 (Patient Refused) Mammogram 08/10/2025 08/10/2024, 08/01/2022 Cervical Cancer Screening 04/01/2026 Pap Smear 04/01/2026 04/01/2023, 10/23/2018 Procedures Procedure Name Priority Date/Time Associated Diagnosis Comments DEXA BONE DENSITY Routine 08/17/2024 10: 44 AM EDT MM TOMOSYNTHESIS SCREENING BI 08/10/2024 11:22 AM EDT TRANSFERRIN Routine 08/10/2024 8:55 AM EDT ALL THYROXINE (T4) FREE Routine 08/10/2024 8:55 AM EDT TBH VITAMIN D 25 [place] Routine 08/10/2024 8 :55 AM EDT [facility] FERRITIN Routine 08/10/2024 8:55 AM EDT METRO IRON AND TIBC Routine 08/10/2024 8 :55 AM EDT ALL THYROID STIM HORMONE Routine 08/10/2024 8:55 AM EDT ALL LIPID PROFILE (FASTING) Routine 08/10/2024 8:55 AM EDT ALL MAGNESIUM Routine 08/10/2024 8:55 AM EDT ALL URIC ACID Routine 08/10/2024 8:55 AM EDT [facility] CMP (CMP) (FOR REMOTE [facility] USE) Routine 08/10/2024 8:55 AM EDT ALL CBC WITH AUTO DIFF Routine 8:55 AM EDT TBH URINE MICROSCOPIC ONLY Routine 08/10/2024 8:49 AM EDT TBH MICROALB CREAT RATIO RANDOM Routine 08/10/2024 8:49 AM EDT TBH UA (CLEAN/CATCH) MICROSCOPIC IF INDICATE Routine 08/10/2024 8:49 AM EDT XR HAND 3+ VIEWS RIGHT 12:23 PM EDT from Last 3 Months Results * DEXA bone density (08/17/2024 10:44 AM EDT) Anatomical Region Laterality Modality Body Radiographic Jenelle ging us Mary Chun NP IMG DXA PROCEDURES Final Result * MM TOMOSYNTHESIS SCREENING BI (08/10/2024 11:22 AM EDT) Anatomical Region Laterality Modality Other 08/10/2024 11:2 2 AM EDT Narrative 08/10/2024 11:24 AM EDT The [address] [address] Mammography Report Signed Patient: ECTOR HUTCHISON MR#: [id number] : 1960 Acct:[id number] Age/Sex: 64 / F ADM Date: 08/10/24 Loc: MAMMO Attending Dr: Mary Chun NP Ordering Physician: Mary Chun NP Results: Date of Service: 08/10/24 Follow Up: Procedure(s): MM tomosynthesis screening BI Accession Number(s): [id number] cc: Mary Chun NP Patient Name: ECTOR HUTCHISON MR#: [id number] : 1960 Exam Date: 08/10/2024 Ordering Doctor: ANA CHUN CNP RADIOLOGY REPORT PROCEDURE: MM TOMOSYNTHESIS SCREENING BI COMPARISON: MG MAMM SCREEN 3D JENNIFER CAD, 08/01/2022. MG MAMM SCREEN 3D JENNIFER CAD, 05/23/2021. MG MAMM SCREEN JENNIFER W CAD, 03/08/2020. MG MAMM JENNIFER SCRN W CAD DIG, 06/24/2015. INDICATIONS: Screening Calculator Name NCI Breast Cancer Risk Assessment Tool 5 Year Breast Cancer Risk 1.70% Lifetime Breast Cancer Risk 6.30% Personal Breast Cancer No Personal Ovarian Cancer No Treatments None Family Cancers Grandmother-maternal with breast cancer at age 80; Mother with lung cancer at age 72; Father with prostate cancer at age 55. LOCATION: [facility] BREAST COMPOSITION: The breasts are extremely dense, which lowers the sensitivity of mammography. FINDINGS: RIGHT BREAST: No significant suspicious finding. LEFT BREAST: No significant suspicious finding. DIAGNOSTIC CATEGORY 1--NEGATIVE. RECOMMENDATIONS: ROUTINE MAMMOGRAM AND CLINICAL EVALUATION IN 12 MONTHS. PLEASE NOTE: A NORMAL MAMMOGRAM DOES NOT EXCLUDE THE POSSIBILITY OF BREAST CANCER. A CLINICALLY SUSPICIOUS PALPABLE LUMP SHOULD BE BIOPSIED. Dictated by: Naveed oDrman DO on 08/10/2024 at 11:20 Approved by: Naveed Dorman DO on 08/10/2024 at 11:22 Dictated By: Naveed Dorman D.O. Signed By: 08/10/24 1124 DD/ 1122 TD/TT: Lean Six Sigma Black Belt: Procedure Note Radiology, Radiologist, MD - 08/10/2024 The [place] [id number] Mammography Report Signed Patient: ECTOR HUTCHISON SMR#: [id number] : 1960Acct:[id number] Age/Sex: 64 / FADM Date: 08/10/24 Loc: MAMMO Attending Dr: Mary Chun PAVING INSPECTOR Ordering Physician: Mary Chun NPResults: Date of Service: 08/10/24Follow Up: Procedure(s): MM tomosynthesis screening BI Accession Number(s): [id number] cc: Mary Chun NP Patient Name: ECTOR HUTCHISON MR#: [id number] : 1960 Exam Date: 08/10/2024 Ordering Doctor: ANA CHUN CNP RADIOLOGY REPORT PROCEDURE: MM TOMOSYNTHESIS SCREENING BI COMPARISON: MG MAMM SCREEN 3D JENNIFER CAD, 08/01/2022. MG MAMM SCREEN 3DBIL CAD, 05/23/2021. MG MAMM SCREEN JENNIFER W CAD, 03/08/2020. MG MAMM JENNIFER SCRN WCAD DIG, 06/24/2015. INDICATIONS: Screening Calculator Name NCI Breast Cancer Risk Assessment Tool 5 Year Breast Cancer Risk 1.70% Lifetime Breast Cancer Risk 6.30% Personal Breast Cancer No Personal Ovarian Cancer No Treatments None Family Cancers Grandmother-maternal with breast cancer at age 80;Mother with lung cancer at age 72; Father with prostate cancer at age 55. LOCATION: [facility] BREAST COMPOSITION: The breasts are extremely dense, which lowers the sensitivity of mammography. FINDINGS: RIGHT BREAST: No significant suspicious finding. LEFT BREAST: No significant suspicious finding. DIAGNOSTIC CATEGORY 1--NEGATIVE. RECOMMENDATIONS: ROUTINE MAMMOGRAM AND CLINICAL EVALUATION IN 12 MONTHS. PLEASE NOTE: A NORMAL MAMMOGRAM DOES NOT EXCLUDE THE POSSIBILITY OFBREAST CANCER. A CLINICALLY SUSPICIOUS PALPABLE LUMP SHOULD BE BIOPSIED. Dictated by: Naveed Dorman DO on 08/10/2024 at 11:20 Approved by: Naveed Dorman DO on 08/10/2024 at 11:22 Dictated By: Naveed Dorman D.O. Signed By:08/10/24 1124 DD/ 112 TD/TT: Lean Six Sigma Black Belt: Mary Chun NP CLINISYNC IMAGING Final Result * TRANSFERRIN (08/10/2024 8:55 AM EDT) TRANSFERRIN 332 192 - 364 mg/dL TBH Comment: Performed at: [address] [id number] Upholstery Repairer: Raymundo Steele PhD, Phone: [phone] 08/10/2024 8:55 AM EDT 08/10/2024 9:08 AM EDT Narrative CLINISYNC - 08/11/2024 5:07 AM EDT Mary Chun NP LAB BLOOD ORDERABLES Final Resu lt Performing Organization Address [facility] Co de Phone Number CLINISYNC TB * TBH VITAMIN D 25 [place] (08/10/2024 8:55 AM EDT) Pathologist [facility] VITAMIN D 47.3 ng/mL TBH Comment: <20 ng/mL Vit D deficient 20-<30 ng/mL Vit D insufficient 30-100 ng/mL Vit D sufficient >100 ng/mL Potential Toxicity 08/10/2024 8:55 AM EDT 08/10/2024 9:08 AM EDT Narrative CLINISYNC - 08/10/2024 12:37 PM EDT Mary Chun NP CLINISYNC Final Result Performing Organization Address [facility]/ZIP Co de Phone Number CLINISYNC TB * (ABNORMAL) METRO IRON AND TIBC (08/10/2024 8:55 AM EDT) TBH IRON 27.0(L) 50.0 - 170.0 ug/dL TBH TBH TOTAL IRON BINDING CAPACITY 405.0 250.0 - 450.0 ug/dL TBH TBH PERCENT IRON SATURATION 6.7 % TBH 08/10/2024 8:55 AM EDT 08/10/2024 9:08 AM EDT Narrative CLINISYNC - 08/10/2024 12:14 PM EDT us Mary Chun PAVING INSPECTOR CLINISYNC Final Result CLINISYNC TBH * [facility] FERRITIN (08/10/2024 8:55 AM EDT) FERRITIN 15.0 8.0 - 252.0 ng/mL TBH 08/10/2024 8:55 AM EDT 08/10/2024 9:08 AM EDT Narrative CLINISYNC - 08/10/2024 12:37 PM EDT Mary Adiel PAVING INSPECTOR CLINISYNC Final Result CLINISYNC TBH * (ABNORMAL) [facility] CMP (CMP) (FOR REMOTE [facility] USE) (08/10/2024 8:55 AM EDT) SODIUM 144 136 - 145 mmol/L TBH POTASSIUM 4.3 3.5 - 5.1 mmol/L TBH CHLORIDE 105 98 - 107 mmol/L TBH CARBON DIOXIDE 33.4(H) 21.0 - 32.0 mmol/L TBH ANION GAP 9.9 TBH GLUCOSE 112(H) 74 - 106 mg/dL TBH BLOOD UREA NITROGEN 25.0(H) 7.0 - 18.0 mg/dL TBH CREATININE 0.92 0.55 - 1.02 mg/dL TBH TBH EGFR-AF [place] >60 >=60 mL/min/1. 73m 2 TBH TBH EGFR-NON AF [place] >60 >=60 mL/min/1. 73m 2 TBH BUN CREATININE RATIO 27.2 TBH CALCIUM 8.6 8.5 - 10.1 mg/dL TBH BILIRUBIN TOTAL 0.2 0.2 - 1.0 mg/dL TBH ASPARTATE AMINO TRANSFERASE 20 15 - 37 U/L TBH ALANINE AMINOTRANSFERASE 23 14 - 59 U/L TBH ALKALINE PHOSPHATASE 71 46 - 116 U/L TBH TOTAL PROTEIN 6.9 6.4 - 8.2 g/dL TBH ALBUMIN LEVEL 3.5 3.4 - 5.0 g/dL TBH GLOBULIN 3.4 g/dL TBH ALBUMIN GLOBULIN RATIO 1.0 TBH 08/10/2024 8:55 AM EDT 08/10/2024 9:08 AM EDT Narrative CLINISYNC - 08/10/2024 11:51 AM EDT Mary Chun PAVING INSPECTOR CLINISYNC Final Result Performing Organization Address [facility] Co de Phone Number [facility] * (ABNORMAL) ALL URIC ACID (08/10/2024 8:55 AM EDT) URIC ACID 2.5(L) 2.6 - 6.0 mg/dL TB 08/10/2024 8:55 AM EDT 08/10/2024 9:08 AM EDT Narrative CLINISYNC - 08/10/2024 11:51 AM EDT Mary Chun PAVING INSPECTOR CLINISYNC Final Result Performing Organization Address [facility] Co de Phone Number CLINISYMA TB * ALL THYROXINE (T4) FREE (08/10/2024 8:55 AM EDT) FREE T4 0.81 0.76 - 1.46 ng/dL TB 08/10/2024 8:55 AM EDT 08/10/2024 9:08 AM EDT Narrative CLINISYNC - 08/10/2024 12:37 PM EDT Mary Chun PAVING INSPECTOR CLINISYNC Final Result Performing Organization Address [facility] Co de Phone Number CLINISYMA TB * ALL THYROID STIM HORMONE (08/10/2024 8:55 AM EDT) THYROID STIMULATING HORMONE 2.150 0.358 - 3.740 uIU/mL TBH 08/10/2024 8:55 AM EDT 08/10/2024 9:08 AM EDT Narrative CLINISYNC - 08/10/2024 11:51 AM EDT Mary Chun NP CLINISYNC Final Result Performing Organization Address [facility] de Phone Number CLINISYNC TB * ALL MAGNESIUM (08/10/2024 8:55 AM EDT) MAGNESIUM 2.3 1.8 - 2.4 mg/dL TB 08/10/2024 8:55 AM EDT 08/10/2024 9:08 AM EDT Narrative CLINISYNC - 08/10/2024 11:51 AM EDT Mary Chun NP CLINISYNC Final Result Performing Organization Address [facility] Phone Number CLINISYNC TB * (ABNORMAL) ALL LIPID PROFILE (FASTING) (08/10/2024 8:55 AM EDT) TRIGLYCERIDES 72 <=150 mg/dL TBH CHOLESTEROL 207(H) <=200 mg/dL TB HDL CHOLESTEROL 88(H) 40 - 60 mg/dL TB Comment: > or =60 mg/dl - LOW CARDIOVASCULAR RISK <40 mg/dl - HIGH CARDIOVASCULAR RISK LDL CHOLESTEROL CALCULATED 105.0 mg/dL TB Comment: <100 mg/dl OPTIMAL 100-129 mg/dl NEAR OR ABOVE OPTIMAL 130-159 mg/dl BORDERLINE HIGH 160-189 mg/dl HIGH >190 mg/dl VERY HIGH VLDL CHOLESTEROL 14.4 mg/dL TB CHOL HDL RATIO 2.4 TB Comment: 3.3 - 4.4 LOW RISK 4.4 - 7.1 AVERAGE RISK 7.1 - 11.0 MODERATE RISK >11.0 HIGH RISK 08/10/2024 8:55 AM EDT 08/10/2024 9:08 AM EDT Narrative CLINISYNC - 08/10/2024 11:51 AM EDT Mary Chun NP CLINISYNC Final Result Performing Organization Address [facility] Co de Phone Number CLINISYNC TB * (ABNORMAL) ALL CBC WITH AUTO DIFF (08/10/2024 8:55 AM EDT) [facility] TB WBC 3.9(L) 4.0 - 11.0 10 3/uL TBH TBH RBC 4.12(L) 4.20 - 5.40 10 6/uL TBH TBH HGB 10.9(L) 12.0 - 16.0 g/dL TBH TBH HCT 35.8(L) 36.0 - 48.0 % TBH TBH MCV 86.9 81.0 - 99.0 fL TBH TBH MCH 26.5(L) 26.7 - 34.0 pg TBH TBH MCHC 30.4 29.9 - 35.2 g/dL TBH TBH RDW 13.7 11.0 - 15.0 % TBH TBH PLT 308 150 - 450 10 3/uL TBH TBH MPV 8.7(L) 9.5 - 13.5 fL TBH NEUTROPHILS PERCENT AUTO 56.8 43.0 - 75.0 % TBH LYMPHOCYTES PERCENT AUTO 24.6 20.5 - 60.0 % TBH MONOCYTES PERCENT AUTO 10.9 1.7 - 12.0 % TBH TBH EO % 6.1 0.9 - 7.0 % TBH BASOPHILS PERCENT AUTO 1.3 0.2 - 2.0 % TBH IMMATURE GRANULOCYTES PCT AUTO 0.3 0.0 - 0.5 % TBH NEUTROPHILS ABSOLUTE AUTO 2.2 1.4 - 6.5 10 3/uL TBH LYMPHOCYTES ABSOLUTE AUTO 1.0(L) 1.2 - 3.8 10 3/uL TBH MONOCYTES ABSOLUTE AUTO 0.4 0.3 - 0.8 10 3/uL TBH TBH EO # 0.2 0.0 - 0.7 10 3/uL TBH BASOPHILS ABSOLUTE AUTO 0.1 0.0 - 0.1 10 3/uL TBH IMMATURE GRANULOCYTES ABS AUTO 0.01 0.00 - 0.03 10 3/uL TBH 08/10/2024 8:55 AM EDT 08/10/2024 9:08 AM EDT Narrative CLINISYNC - 08/10/2024 9:16 AM EDT Mary Chun PAVING INSPECTOR CLINISYNC Final Result CLINISYNC TBH * (ABNORMAL) TBH URINE MICROSCOPIC ONLY (08/10/2024 8:49 AM EDT) TBH WBC 2-5(A) NONE SEEN #/HPF TBH TBH RBC 0-2 0 - 2 #/HPF TBH BACTERIA URINE TRACE(A) NONE SEEN #/HPF TBH MUCUS URINE NONE SEEN NONE SEEN TBH SQUAMOUS EPITHELIAL CELL URINE FEW(A) NONE/RARE #/LPF TBH CRYSTALS SEEN? Seen(A) None Seen #/HPF TBH TRIPLE PHOSPHATE CRYSTAL URINE FEW TBH CAST SEEN? NONE SEEN NONE SEEN #/LPF TBH 08/10/2024 8:49 AM EDT 08/10/2024 9:08 AM EDT Narrative CLINISYNC - 08/10/2024 10:55 AM EDT Mary Chun PAVING INSPECTOR CLINISYNC Final Result Performing Organization Address [facility] de Phone Number CLINISYNC TBH * (ABNORMAL) TBH UA (CLEAN/CATCH) MICROSCOPIC IF INDICATE (08/10/2024 8:49 AM EDT) COLOR URINE LT. YELLOW YELLOW TBH CLARITY URINE CLEAR CLEAR TBH SPECIFIC GRAVITY URINE 1.010 1.005 - 1.025 TBH PH URINE 7.0 5.0 - 9.0 TBH PROTEIN URINE NEGATIVE NEG/TRACE mg/dL TBH GLUCOSE URINE UA NEGATIVE NEGATIVE mg/dL TBH BILIRUBIN URINE NEGATIVE NEGATIVE TBH KETONES URINE NEGATIVE NEGATIVE mg/dL TBH BLOOD URINE NEGATIVE NEGATIVE TBH NITRITE URINE NEGATIVE NEGATIVE TBH UROBILINOGEN URINE 1.0 0.2 - 1.0 EU/dL TBH LEUKOCYTE ESTERASE URINE SMALL(A) NEGATIVE TBH URINE MICROSCOPIC INDICATED YES TBH 08/10/2024 8:49 AM EDT 08/10/2024 9:08 AM EDT Narrative CLINISYNC - 08/10/2024 10:55 AM EDT Mary Chun NP CLINISYNC Final Result Performing Organization Address [facility] Co de Phone Number CLINISYMA TB * TBH MICROALB CREAT RATIO RANDOM (08/10/2024 8:49 AM EDT) MICROALBUMIN URINE RANDOM <1.3 <=30.0 mg/dL TBH CREATININE URINE RANDOM 142.52 20.00 - 300.00 mg/dL TB MICROALBUM CREATININE RATIO UR 9.1 0.0 - 29.9 mg/g TBH Comment: NO MICROALBUMINURIA 0-29 MG/G CLINICAL MICROALBUMINURIA 30-300 MG/G MACROALBUMINURIA >300 MG/G 08/10/2024 8:49 AM EDT 08/10/2024 9:08 AM EDT Narrative CLINISYNC - 08/10/2024 10:45 AM EDT us Mary Chun NP CLINISYNC Final Result Performing Organization Address [facility] de Phone Number [facility] * XR hand 3+ views right (08/03/2024 12:23 PM EDT) Anatomical Region Laterality Modality Upper Extremities, Hand Right Radiogra phic Imaging 08/03/2024 12:2 3 PM EDT Narrative 08/03/2024 12:26 [place] [address] XRay Report Signed Patient: ECTOR HUTCHISON MR#: [id number] : 1960 Acct:[id number] Age/Sex: 64 / F ADM Date: 08/03/24 Loc: LAB Attending Dr: Mary Chun NP Ordering Physician: Mary Chun NP Date of Service: 08/03/24 Procedure(s): XR hand RT min 3V Accession Number(s): [id number] cc: Mary Chun NP The [address] [address] Patient Name: ECTOR HUTCHISON MRN: [id number] date: 1960 Sex: F Assigned Patient Location: LAB Current Patient Location: LAB Accession/Order Number: [id number] Exam Date: 08/03/2024 12:20 Report Date: 08/03/2024 [...] Lee M.D. 08/03/2024 12:23 PM Dictation Location: [place] [address] Electronically authenticated by: [id number] Y Date: 08/03/2024 12:23 Dictated By: Frances Lee M.D. Signed By: 08/03/24 1226 DD/ 1223 TD/TT: [employer]: Procedure Note Radiology, Radiologist, MD - 08/03/2024 [place] [address] XRay Report Signed Patient: ECTOR HUTCHISON [facility]#: [id number] : 1960Acct:[id number] Age/Sex: 64 / FADM Date: 08/03/24 Loc: LAB Attending Dr: Mary Chun NP Ordering Physician: Mary Chun NP Date of Service: 08/03/24 Procedure(s): XR hand RT min 3V Accession Number(s): [id number] cc: Mary Chun NP The [address] [address] Patient Name: ECTOR HUTCHISON MRN: [id number] date: 1960 Sex: F Assigned Patient Location: LAB Current Patient Location: LAB Accession/Order Number: [id number] Exam Date: 08/03/2024 12:20 Report Date: 08/03/2024 [...] Lee M.D. 08/03/2024 12:23 PM Dictation Location: [place] [address] Electronically authenticated by: [id number] Y Date: 2:23 Dictated By: Frances Lee M.D. 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
--- OUTSIDE RECORDS SUMMARY | 2024-10-13 08:35 | XMS_ITS | Clinical Summary ---
Author Organization [facility] Address [id number] [place] [address] Care Team Providers Care Principal Accounts Clerk Name Role Phone Unavailable Primary Care Provider Unavailabl e Allergies Active Allergy Reactions Criticality Noted Date Comments Bee Venom Protein (Honey Bee) Anaphylaxis High 05/18 Atorvastatin Palpitations Low 05/18/2022 Medications ASCORBATE PCEONAW-X1-DNSR CETIN ORAL Take by mouth. Active levothyroxine [...]
--- OUTSIDE RECORDS SUMMARY | 2024-10-13 08:35 | XMS_ITS | Encounter Summary ---
Author Organization indicos tem Address [id number] [address] [place] [address] Care Team Providers Care Hamper Maker Machine Name Role Phone Unavailable Primary Care Provider Unavailabl e Encounter Details Date Type Department Care Team (Late st Contact Info) Description 03/21/2022 Abstract Pati Jane [facility] Center - Medical Oncology [address] [place] [address] Chadwick Saxena MD [address] [facility] [address] [place] [id number] Social History Tobacco Use Types Packs/Day [...] 11/07/2021 us Not In System Ref Prov PA IMAGING Final Res ult documented in this encounter Visit Diagnoses Not on filedocumented in this encounter
[2024-10-13 09:00] LABS: Hematocrit 39.7 % (36.0-48.0); Hemoglobin 12.6 g/dL (12.0-16.0); Immature Granulocytes Abs Auto 0.01 10^3/uL (0.00-0.03); Immature Granulocytes Pct Auto 0.2 % (0.0-0.5); Lymphocytes Absolute Auto 1.1 10^3/uL (1.2-3.8); Mean Corpuscular HGB Conc 31.7 g/dL (29.9-35.2); Mean Corpuscular Hemoglobin 28.6 pg (26.7-34.0); Mean Corpuscular Volume 90.0 fL (81.0-99.0); Platelet Count 304 10^3/uL (150-450); Red Blood Count 4.41 10^6/uL (4.20-5.40); White Blood Count 4.5 10^3/uL (4.0-11.0)
[2024-10-13 10:39] LABS: Iron 94.0 ug/dL (50.0-170.0); Percent Iron Saturation 25.5 %; Total Iron Binding Capacity 368.0 ug/dL (250.0-450.0)
[2024-10-13 11:05] LABS: Ferritin 35.0 ng/mL (8.0-252.0)
[2024-10-14 08:09] LABS: Transferrin 302 mg/dL (192-364)
== END 2024-10-13 08:32 | disposition home or self-care (01) ==
LOC: LAB 08:32
PROVIDERS: PCP Nurse Practitioner; Visit Provider Nurse Practitioner
DX: D50.8 Other iron deficiency anemias (principal)
CPT/HCPCS: 36415; 82728; 83540; 83550; 84466; 85025